=== PATIENT | female | born 1995 | race Caucasian/White ===

== ENCOUNTER 2019-03-27 21:33 | Emergency (ER) | payer MEDICAID, OTHER ==
[~2019-03-27] VITALS: Ht 170.2 cm; Wt 66.7 kg
--- NOTE | 2019-03-27 22:05 | ED Lower Extremity ---
General Stated Complaint: LT KNEE LOCKING AND POPPING Source: patient Exam Limitations: no limitations History of Present Illness Date Seen by Provider: Mar 27, 2019 Time Seen by Provider: 21:50 Initial Comments The patient is a pleasant 23-year-old female who presents for evaluation of left knee pain. She states that her knee has been popping and locking. She denies any known injury. She does mention that she is currently . She has no other complaints at this time. She states this is been going on for weeks. She has been taking Tylenol home with little relief. She denies fevers or chills, recent trauma, previous surgeries or injections. Onset: other (for weeks) Severity: mild Pain/Injury Location: left knee Method of Injury: unknown Modifying Factors: Improves With Movement (makes it worse), Improves With Rest (helps) Allergies and Home Medications Patient Home Medication List Home Medication List Reviewed: Yes Review of Systems Constitutional: no symptoms reported EENTM: no symptoms reported Respiratory: no symptoms reported Cardiovascular: no symptoms reported Gastrointestinal: no symptoms reported Genitourinary: no symptoms reported Musculoskeletal: joint pain (left knee, pops and locks) Skin: no symptoms reported Psychiatric/Neurological: No Symptoms Reported All Other Systems Reviewed Negative Unless Noted: Yes Past Mdcftsm-Ssgxax-Uwomfh Hx Past Med/Social Hx: Reviewed Nursing Past Med/Soc Hx Patient Social History Recent Foreign Travel: No Contact w/Someone Who Travel: No Physical Exam Vital Signs Vital Signs - First Documented 03/27/19 21:39 Temp 98.2 Pulse 82 Resp 18 B/P (MAP) 124/65 (84) Pulse Ox 98 O2 Delivery Room Air Capillary Refill : Height, Weight, BMI Height: '" Weight: lbs. oz. kg; BMI Method: General Appearance: WD/WN, no apparent distress HEENT: PERRL/EOMI, normal ENT inspection, TMs normal, pharynx normal Cardiovascular: regular rate, rhythm, no edema Respiratory: lungs clear, normal breath sounds, no respiratory distress Knees: left knee soft tissue tenderness (mild anterior left knee tenderness over the patella, full extension elicits no pain however even mild flexion worsens the patient's discomfort, no sign of dislocation or deformity, no skin redness or wound, CMS intact distal to the injury) Neurologic/Psychiatric: no motor/sensory deficits, alert, normal mood/affect, oriented x 3 Skin: normal color, warm/dry Lymphatic: no adenopathy Progress/Results/Core Measures Results/Orders My Orders Orders - HERMELINDO IVERSON DO Knee 3 View Left (03/27/19 21:35) Perry Bandage (03/27/19 22:10) Crutches (03/27/19 22:10) Vital Signs/I&O 03/27/19 21:39 Temp 98.2 Pulse 82 Resp 18 B/P (MAP) 124/65 (84) Pulse Ox 98 O2 Delivery Room Air Progress Progress Note : Progress Note @2220 - Pt was shielded as she is . Pt informed of imaging results which are unremarkable. Advised the patient to follow-up with her PCP in the next 2-3 days and return to the emergency department for new or worsening symptoms. Patient given crutches and Perry wrap for pain relief. Departure Impression Primary Impression: Left knee pain Additional Impression: Disposition: HOME, SELF-CARE Condition: Stable Departure-Patient Inst. Decision time for Depature: 22:15 Referrals: ANTONIO VILLAGOMEZ MD, ([facility]) (PCP) Primary Care Physician Patient Instructions: Internal Derangement of the Knee, Knee Pain (DC) Add. Discharge Instructions: Continue to take Tylenol for pain relief. Use the crutches provided to help with the pain relief as well. Follow up with her doctor in the next 2-3 days. Return to the ER for new or worsening symptoms. HERMELINDO IVERSON DO Mar 27, 2019 22:05
--- NOTE | 2019-03-27 22:08 | Diagnostic Imaging Report ---
INDICATION: Left knee is locking up EXAMINATION: Left knee dated 03/27/2019 FINDINGS: 3 views of the knee The joint spaces demonstrate no evidence for acute abnormality. No significant joint effusion is seen. IMPRESSION: No acute process. Dictated by: Dictated on workstation # [id number]
[2019-03-27 22:23] VITALS: BP 124/65
== END 2019-03-27 22:23 | disposition home or self-care (01) ==
LOC: EDUNIT# 21:33 → ER FS 21:34
DX: O99.89 Other specified diseases and conditions complicating pregnancy, childbirth and the puerperium (principal); M25.562 Pain in left knee; Z3A.00 Weeks of gestation of pregnancy not specified
CPT/HCPCS: 73562

== ENCOUNTER 2021-10-09 18:21 | Emergency (ER) | payer MEDICAID ==
[~2021-10-09] VITALS: Ht 175.2 cm; Wt 82.3 kg
--- NOTE | 2021-10-09 18:24 | ED GU-Female ---
General Stated Complaint: VAGINAL BLEEDING DURING PREG History of Present Illness Date Seen by Provider: Oct 09, 2021 Time Seen by Provider: 18:30 Initial Comments 25-year-old female presents with symptoms light vaginal spotting. Patient was told she was seen in [facility] and might be 4 weeks . Patient had her menstrual cycle 2 weeks ago. Patient not having abdominal pain or cramping. Allergies and Home Medications Patient Home Medication List Home Medication List Reviewed: Yes Review of Systems Review of Systems Constitutional: No chills, No fever Respiratory: No cough, No short of breath Cardiovascular: no symptoms reported Gastrointestinal: no symptoms reported Genitourinary: see HPI Skin: no symptoms reported Past Hgordnr-Tbdkno-Psmctl Hx Seasonal Allergies Seasonal Allergies: No Past Medical History Surgeries: No Respiratory: No Cardiac: No Neurological: No Genitourinary: No Gastrointestinal: No Musculoskeletal: No Endocrine: No HEENT: No Cancer: No Psychosocial: No Integumentary: No Physical Exam Vital Signs Capillary Refill : Height, Weight, BMI Height: 5'7.00" Weight: 147lbs. 0oz. 66.431433jh; BMI Method:Stated General Appearance: WD/WN, no apparent distress HEENT: PERRL/EOMI Neck: full range of motion Cardiovascular: normal peripheral pulses, regular rate, rhythm Respiratory: lungs clear, normal breath sounds Gastrointestinal: non tender, soft Extremities: normal range of motion Neurologic/Psychiatric: alert, normal mood/affect, oriented x 3 Skin: normal color, warm/dry Progress/Results/Core Measures Suspected Sepsis SIRS Temperature: Pulse: Respiratory Rate: Blood Pressure / Mean: Results/Orders My Orders Orders - LISA DO DO Urine Bedside (10/09/21 18:30) Vital Signs/I&O Capillary Refill : Progress Note : Progress Note Patient with a negative bedside urine. Patient also with a menstrual cycle 2 weeks ago. Patient is may be having some ovulation spotting or other cause. At this time no further work-up is warranted and she will be discharged home Departure Impression Primary Impression: Vaginal spotting Disposition: 01 HOME, SELF-CARE Condition: Stable Departure-Patient Inst. Referrals: NO,LOCAL PHYSICIAN (PCP/Family) Primary Care Physician Patient Instructions: Absent or Irregular Periods Add. Discharge Instructions: Follow-up with your primary care provider as needed LISA DO DO Oct 09, 2021 18:24
[2021-10-09 18:52] VITALS: BP 137/73
[2021-10-10] MEDS ORDERED: IBUP-1780 PO (21:03)
== END 2021-10-09 18:52 | disposition home or self-care (01) ==
LOC: EDUNIT# 18:21 → ER FS 18:23
DX: N93.9 Abnormal uterine and vaginal bleeding, unspecified (principal)
CPT/HCPCS: 84703; 99282

== ENCOUNTER 2021-10-10 20:25 | Emergency (ER) | payer MEDICAID ==
--- NOTE | 2021-10-10 20:49 | Diagnostic Imaging Report ---
INDICATION: pain in left ring finger TECHNIQUE: 3 views of the left ring finger CORRELATION STUDY: None FINDINGS: There is normal alignment and appearance of the osseous structures of the finger. The joint spaces are maintained. There is no acute fracture. 4th proximal phalanx is however partially obscured by overlying ring. IMPRESSION: 1. Negative for acute bony abnormality of the left ring finger. Dictated by: Dictated on workstation # [id number]
[2021-10-10] MEDS ORDERED: IBUPROFEN 800 MG (MOTRIN) TAB PO STA (20:57)
[2021-10-10] MEDS ORDERED: IBUP-1780 PO (21:03)
--- NOTE | 2021-10-10 21:03 | ED Upper Extremity ---
General Chief Complaint: Upper Extremity Stated Complaint: LT HAND RING FINGER PAIN Nursing Triage Note: Pt states she jammed her left ring finger Source: patient History of Present Illness Date Seen by Provider: Oct 10, 2021 Time Seen by Provider: 20:33 Initial Comments 25-year-old female presenting with complaints of pain in her left ring finger. She states that she was "fooling around" with her fianc. She got her finger caught and felt a pop in it and has had pain with a burning sensation in her fingers ever since. This happened just prior to coming to the emergency department. She reports trying some ice but it did not help. She has not taken any medication for the pain. She states that she cannot move her finger due to pain. She also cannot remove the ring that is on her finger due to pain. She still has sensation but also says that she has burning pain in the finger. Also she states that she cannot move the fingers she is noted to be moving the finger in all directions. Onset: just prior to arrival Severity: severe Pain/Injury Location: left 4th finger Method of Injury: twisted Modifying Factors: Worse With Movement Allergies and Home Medications Allergies Coded Allergies: No Known Drug Allergies (Unverified , 10/10/21) Patient Home Medication List Home Medication List Reviewed: Yes Ibuprofen (Ibuprofen) 800 Mg Tablet, 800 MG PO Q8H PRN for PAIN Prescribed by: ALEKSANDR MCDONALD on 10/10/212102 Review of Systems Constitutional: No chills, No fever EENTM: no symptoms reported Respiratory: no symptoms reported Cardiovascular: no symptoms reported Gastrointestinal: no symptoms reported Genitourinary: no symptoms reported Musculoskeletal: see HPI Skin: No change in color Psychiatric/Neurological: See HPI Past Cskuzbj-Vtgdbc-Xdnolg Hx Patient Social History Tobacco Use?: No Use of E-Cig and/or Vaping dev: No Substance use?: No Alcohol Use?: No Pt feels they are or have been: No Seasonal Allergies Seasonal Allergies: No Past Medical History Surgeries: No Respiratory: No Cardiac: No Neurological: No Genitourinary: No Gastrointestinal: No Musculoskeletal: No Endocrine: No HEENT: No Cancer: No Psychosocial: No Integumentary: No Physical Exam Vital Signs Vital Signs - First Documented 10/10/21 20:30 Temp 36.5 Pulse 88 Resp 18 B/P (MAP) 134/63 (86) Pulse Ox 98 O2 Delivery Room Air Capillary Refill : Less Than 3 Seconds Height, Weight, BMI Height: 5'7.00" Weight: 147lbs. 0oz. 66.821072ci; 26.00 BMI Method:Stated General Appearance: no apparent distress Cardiovascular: normal peripheral pulses Hand: no evidence of injury, soft tissue tenderness (Patient complains of pain with palpation and light touch to the left ring finger. There is no obvious deformity, bruising, abrasion, swelling, nail injury. Ring was easily slid off finger without difficulty. Pt states she can not move the finger but is hyperextending it and when distracted she flexed the finger normally) Neurologic/Tendon: normal sensation, normal motor functions, normal tendon functions Neurologic/Psychiatric: alert, oriented x 3 Skin: normal color, warm/dry; No ecchymosis Progress/Results/Core Measures Results/Orders My Orders Orders - ALEKSANDR MCDONALD MD Finger(S) (10/10/21 20:34) Ibuprofen Tablet (Motrin Tablet) (10/10/21 20:57) Orthopedic Equiment (10/10/21 20:57) Ed Ortho/Other Supplies Order (10/10/21 20:57) Vital Signs/I&O 10/10/21 10/10/21 20:30 21:06 Temp 36.5 36.5 Pulse 88 88 Resp 18 18 B/P (MAP) 134/63 (86) 134/63 Pulse Ox 98 98 O2 Delivery Room Air Room Air Blood Pressure Mean: 86 Progress Progress Note : Progress Note X-ray obtained of the left ring finger and no obvious fracture or dislocation noted. Patient refused removal of the ring on that finger initially cervical x- rays were done with the ring in place. Counseled patient on use of a finger splint to help look at the finger rest and heal from injury tonight and using ibuprofen and ice to help with inflammation and pain. Counseled on follow-up and return precautions. Diagnostic Imaging Diagonstic Imaging: Xray Plain Films/CT/US/NM/MRI: hand Comments [facility]easy[facility] [place], [place] NAME: WARNER HALE Salome [facility] REC#: [id number] PT STATUS: DEP ER : 1995 PHYSICIAN: ALEKSANDR MCDONALD MD ADMIT DATE: 10/10/21/ER FS Signed Date of Exam:10/10/21 FINGER(S) INDICATION: pain in left ring finger TECHNIQUE: 3 views of the left ring finger CORRELATION STUDY: None FINDINGS: There is normal alignment and appearance of the osseous structures of the finger. The joint spaces are maintained. There is no acute fracture. 4th proximal phalanx is however partially obscured by overlying ring. IMPRESSION: 1. Negative for acute bony abnormality of the left ring finger. Dictated by: Dictated on workstation # [id number] Dict: 10/10/212047 Trans: 10/10/212219 DO [id number] Interpreted by: JOSE HERNANDEZ DO Electronically signed by: JOSE HERNANDEZ DO 10/10/212219 Reviewed: Reviewed by Me Departure Impression Primary Impression: Unspecified sprain of left ring finger, initial encounter Additional Impressions: Finger pain, left Contusion of left ring finger without damage to nail, initial encounter Disposition: HOME, SELF-CARE Condition: Stable Departure-Patient Inst. Decision time for Depature: 21:01 Referrals: NO,LOCAL PHYSICIAN (PCP/Family) Primary Care Physician Patient Instructions: Finger Sprain ED, Minor Contusion ED, Common Finger Injuries ED, Using Cold for Pain Add. Discharge Instructions: Use finger splint to help stabilize your finger and let it rest over the next 5- 7 days. If not improved after 5 to 7 days then recheck with your regular doctor in [place], [place]. You may use ice 15-20 minutes every few hours to help with pain and swelling. Ibuprofen 800 mg every 8 hours as needed for pain and inflammation All discharge instructions reviewed with patient and/or family. Voiced understanding. Scripts Ibuprofen (Ibuprofen) 800 Mg Tablet 800 MG PO Q8H PRN for PAIN for 10 Days, #30 TAB 0 Refills Prov: ALEKSANDR MCDONALD MD 10/10/21 ALEKSANDR MCDONALD MD Oct 10, 2021 21:03
[2021-10-10 21:06] VITALS: BP 134/63
== END 2021-10-10 21:09 | disposition home or self-care (01) ==
LOC: EDUNIT# 20:25 → ER FS 20:26
DX: S63.615A Unspecified sprain of left ring finger, initial encounter (principal); W23.1XXA Caught, crushed, jammed, or pinched between stationary objects, initial encounter
CPT/HCPCS: 73140

== ENCOUNTER 2021-10-31 15:21 | Emergency (ER) | payer MEDICAID ==
[~2021-10-31] VITALS: Ht 175.2 cm; Wt 82.0 kg
[~2021-10-31 15:21] MED LIST: IBUP-1780 PO
--- NOTE | 2021-10-31 15:30 | ED EENT ---
History of Present Illness General Chief Complaint: Ear Problems Stated Complaint: LT EAR PROBLEMS History of Present Illness Date Seen by Provider: Oct 31, 2021 Time Seen by Provider: 15:30 Initial Comments 26-year-old female presents with pain in her left earlobe. Patient reports her earlobe is been hurting for about 2 weeks over the last day she has noticed some drainage out of her pierced ear. Is quite a bit of tenderness on the inside of her earlobe where her earring goes in. Patient denies any fever, chills or other systemic complaints. Allergies and Home Medications Allergies Coded Allergies: No Known Drug Allergies (Unverified , 10/10/21) Patient Home Medication List Home Medication List Reviewed: Yes Ibuprofen (Ibuprofen) 800 Mg Tablet, 800 MG PO Q8H PRN for PAIN Prescribed by: ALEKSANDR MCDONALD on 10/10/212102 Review of Systems Review of Systems Constitutional: no symptoms reported Ears: See HPI Nose: no symptoms reported Mouth: no symptoms reported Respiratory: no symptoms reported Cardiovascular: no symptoms reported : No Past Gwbwtff-Lrokyk-Woxlfk Hx Seasonal Allergies Seasonal Allergies: No Past Medical History Surgeries: No Respiratory: No Cardiac: No Neurological: No Genitourinary: No Gastrointestinal: No Musculoskeletal: No Endocrine: No HEENT: No Cancer: No Psychosocial: No Integumentary: No Physical Exam Height, Weight, BMI Height: 5'7.00" Weight: 147lbs. 0oz. 66.064808vu; 26.00 BMI Method:Stated General Appearance: WD/WN Ears: left ear other (Mild swelling and drainage out of her left earlobe piercing consistent with mild infection) Cardiovascular: normal peripheral pulses, regular rate, rhythm Respiratory: lungs clear, normal breath sounds, no respiratory distress Gastrointestinal: non tender, soft Neurologic/Psychiatric: alert, normal mood/affect, oriented x 3 Departure Impression Primary Impression: Infection of left earlobe Disposition: HOME, SELF-CARE Condition: Stable Departure-Patient Inst. Referrals: NO,LOCAL PHYSICIAN (PCP/Family) Primary Care Physician Patient Instructions: Skin Abscess, Tattoos and Body Piercings Add. Discharge Instructions: Please do not utilize your left ear piercing for the next 14 days Keep clean with warm soapy water If symptoms continue to worsen follow-up with your primary care provider for a recheck of your symptoms All discharge instructions reviewed with patient and/or family. Voiced understanding. Scripts Sulfamethoxazole/Trimethoprim (Bactrim Ds Tablet) 1 Each Tablet 1 EACH PO BID for 7 Days, #14 TAB Prov: LISA DO DO 10/31/21 LISA DO DO Oct 31, 2021 15:30
[2021-10-31] MEDS ORDERED: SULF1TAB38 PO (15:42)
[2021-10-31 15:54] VITALS: BP 126/60
== END 2021-10-31 15:54 | disposition home or self-care (01) ==
LOC: EDUNIT# 15:21 → ER FS 15:23
DX: H60.392 Other infective otitis externa, left ear (principal)
CPT/HCPCS: 99281

== ENCOUNTER 2021-11-07 18:47 | Emergency (ER) | payer MEDICAID ==
[~2021-11-07 18:47] MED LIST changes: +SULF1TAB38 PO
[2021-11-07 19:05] LABS: BILIRUBIN,URINE NEGATIVE (NEGATIVE); CLARITY,URINE CLOUDY; COLOR,URINE YELLOW; GLUCOSE, URINE (UA) NEGATIVE (NEGATIVE); KETONES,URINE NEGATIVE (NEGATIVE); LEUKOCYTE ESTERASE ,URINE 3+ (NEGATIVE); NITRITE,URINE NEGATIVE (NEGATIVE); PROTEIN,URINE NEGATIVE (NEGATIVE)
[2021-11-07 19:14] LABS: BACTERIA,URINE FEW /HPF; RBC,URINE 0-2 /HPF
[2021-11-07 19:15] LABS: URINE OTHER CLUE CELLS NOTED /HPF
[2021-11-07 19:18] LABS: AMPHETAMINE SCREEN, URINE NEGATIVE (NEGATIVE); BARBITURATE SCREEN URINE NEGATIVE (NEGATIVE); BENZODIAZEPINES SCREEN URINE NEGATIVE (NEGATIVE); CANNABINOID SCREEN, URINE NEGATIVE (NEGATIVE); COCAINE SCREEN URINE NEGATIVE (NEGATIVE); METHADONE STAT NEGATIVE (NEGATIVE); METHAMPHETAMINE SCREEN URINE S NEGATIVE (NEGATIVE); OPIATE SCREEN URINE NEGATIVE (NEGATIVE); OXYCODONE STAT NEGATIVE (NEGATIVE); PROPOXYPHENE STAT NEGATIVE (NEGATIVE); TRICYCLIC ANTIDEPRESSANTS SCRE NEGATIVE (NEGATIVE)
[2021-11-07] MEDS ORDERED: NS IV 1000 ML 1,000 ML IV STA (19:40)
[2021-11-07] MEDS ORDERED: KETOROLAC 30 MG/ML VIAL IVP STA (19:40)
[2021-11-07] MEDS ORDERED: ONDANSETRON 4 MG/2 ML (SDV) Z0FRAN IVP STA (19:40)
--- NOTE | 2021-11-07 19:47 | ED General ---
General Chief Complaint: Abdominal/GI Problems Stated Complaint: R SIDE RIB PAIN Nursing Triage Note: Pt complaining of right upper quad abd pain that started a couple of days ago Source of Information: Patient, Old Records History of Present Illness Date Seen by Provider: Nov 07, 2021 Time Seen by Provider: 19:23 Initial Comments 26-year-old female presenting with complaints of right upper quadrant abdominal pain for the last few days. She feels like she has pain around her kidneys. She has discomfort with urination. She states that when she eats or drinks anything it makes the pain worse. When she is not eating or drinking then the pain seems to be a little better. She has had nausea, vomiting, diarrhea. On her way here to the emergency department tonight she developed some dizziness and pain to the right side of her head. She denies having any blood in her stools or blood in her urine. She has had no blood in her vomit. She denies any trauma to her belly. She denies any vaginal discharge. She states that she has not had surgery on her belly before and has not had pain like this previously. Timing/Duration: 2-3 Days Severity: Moderate Modifying Factors: worse with Eating Associated Systoms: No Chest Pain, No Cough, No Diaphoresis, No Fever/Chills; Headaches; No Loss of Appetite, No Malaise; Nausea/Vomiting; No Rash, No Seizure, No Shortness of Air, No Syncope, No Weakness Allergies and Home Medications Allergies Coded Allergies: No Known Drug Allergies (Unverified , 10/10/21) Patient Home Medication List Home Medication List Reviewed: Yes Ibuprofen (Ibuprofen) 800 Mg Tablet, 800 MG PO Q8H PRN for PAIN Prescribed by: ALEKSANDR MCDONALD on 10/10/212102 Metronidazole (Metronidazole) 500 Mg Tablet, 500 MG PO BID Prescribed by: ALEKSANDR MCDONALD on 11/07/212056 Ondansetron (Ondansetron Odt) 4 Mg Tab.rapdis, 4 MG PO Q6H PRN for NAUSE A/VOMITING Prescribed by: ALEKSANDR MCDONALD on 11/07/212056 Pantoprazole Sodium (Pantoprazole Sodium) 40 Mg Tablet.dr, 40 MG PO DAILY Prescribed by: ALEKSANDR MCDONALD on 11/07/212056 Sulfamethoxazole/Trimethoprim (Bactrim Ds Tablet) 1 Each Tablet, 1 EACH PO BID Prescribed by: LISA DO on 10/31/21 1542 Review of Systems Review of Systems Constitutional: No chills; dizziness (Tonight); No fever EENTM: no symptoms reported Respiratory: no symptoms reported Cardiovascular: no symptoms reported Gastrointestinal: see HPI Genitourinary: see HPI Musculoskeletal: no symptoms reported Skin: No rash Psychiatric/Neurological: Headache (Tonight having right-sided headache); Denies Numbness, Denies Paresthesia Past Vlnpckt-Hcnlib-Dosttb Hx Patient Social History Tobacco Use?: No Substance use?: No Alcohol Use?: No Pt feels they are or have been: No Seasonal Allergies Seasonal Allergies: No Past Medical History Surgeries: No Respiratory: No Cardiac: No Neurological: No Genitourinary: No Gastrointestinal: No Musculoskeletal: No Endocrine: No HEENT: No Cancer: No Psychosocial: No Integumentary: No Physical Exam Vital Signs Vital Signs - First Documented 11/07/21 18:51 Pulse 99 Resp 18 B/P (MAP) 144/73 (96) Pulse Ox 98 O2 Delivery Room Air Capillary Refill : Less Than 3 Seconds Height, Weight, BMI Height: 5'7.00" Weight: 147lbs. 0oz. 66.517872wl; 26.00 BMI Method:Stated General Appearance: No Apparent Distress HEENT: Pharynx Normal, Moist Mucous Membranes Neck: Full Range of Motion, Normal Inspection, Non Tender, Supple Respiratory: Chest Non Tender, Lungs Clear, Normal Breath Sounds, No Accessory Muscle Use, No Respiratory Distress Cardiovascular: Regular Rate, Rhythm, Normal Peripheral Pulses Gastrointestinal: Normal Bowel Sounds, No Pulsatile Mass, Soft; No Distended, No Guarding, No Rebound; Tenderness (ruq) Rectal: Deferred Back: No CVA Tenderness Extremity: Normal Capillary Refill, Normal Inspection, No Pedal Edema Neurologic/Psychiatric: Alert, Oriented x3, transportation aide II-XII Norm as Tested Skin: Normal Color, Warm/Dry Progress/Results/Core Measures Suspected Sepsis SIRS Temperature: Pulse: 99 Respiratory Rate: 18 Laboratory Tests 11/07/21 19:45: White Blood Count 8.3 Blood Pressure 144 /73 Mean: 96 Laboratory Tests 11/07/21 19:45: Creatinine 0.97, Platelet Count 185, Total Bilirubin 0.2 Results/Orders Lab Results Laboratory Tests Test 11/07/21 18:57 11/07/21 19:45 Range/Units Urine Color YELLOW Urine Clarity CLOUDY Urine pH 6.0 5-9 Urine Specific [place] 1.020 1.016-1.022 Urine Protein NEGATIVE NEGATIVE Urine Glucose (UA) NEGATIVE NEGATIVE Urine Ketones NEGATIVE NEGATIVE Urine Nitrite NEGATIVE NEGATIVE Urine Bilirubin NEGATIVE NEGATIVE Urine Urobilinogen 0.2 < = 1.0 MG/DL Urine Leukocyte Esterase 3+ H NEGATIVE Urine RBC (Auto) 2+ H NEGATIVE Urine RBC 0-2 /HPF Urine WBC 2-5 /HPF Urine Squamous Epithelial Cells 5-10 /HPF Urine Crystals NONE /LPF Urine Bacteria FEW H /HPF Urine Casts NONE /LPF Urine Mucus SMALL H /LPF Urine Other CLUE CELLS NOTED /HPF Urine Culture Indicated NO Urine Opiates Screen NEGATIVE NEGATIVE Urine Oxycodone Screen NEGATIVE NEGATIVE Urine Methadone Screen NEGATIVE NEGATIVE Urine Propoxyphene Screen NEGATIVE NEGATIVE Urine Barbiturates Screen NEGATIVE NEGATIVE Ur Tricyclic Antidepressants Screen NEGATIVE NEGATIVE Urine Phencyclidine Screen NEGATIVE NEGATIVE Urine Amphetamines Screen NEGATIVE NEGATIVE Urine Methamphetamines Screen NEGATIVE NEGATIVE Urine Benzodiazepines Screen NEGATIVE NEGATIVE Urine Cocaine Screen NEGATIVE NEGATIVE Urine Cannabinoids Screen NEGATIVE NEGATIVE White Blood Count 8.3 4.3-11.0 10^3/uL Red Blood Count 4.55 3.80-5.11 10^6/uL Hemoglobin 13.2 11.5-16.0 g/dL Hematocrit 39 35-52 % Mean Corpuscular Volume 86 80-99 fL Mean Corpuscular Hemoglobin 29 25-34 pg Mean Corpuscular Hemoglobin Concent 34 32-36 g/dL Red Cell Distribution Width 11.9 10.0-14.5 % Platelet Count 185 130-400 10^3/uL Mean Platelet Volume 10.9 9.0-12.2 fL Immature Granulocyte % (Auto) 0 % Neutrophils (%) (Auto) 57 42-75 % Lymphocytes (%) (Auto) 31 12-44 % Monocytes (%) (Auto) 8 0-12 % Eosinophils (%) (Auto) 3 0-10 % Basophils (%) (Auto) 1 0-10 % Neutrophils # (Auto) 4.7 1.8-7.8 10^3/uL Lymphocytes # (Auto) 2.6 1.0-4.0 10^3/uL Monocytes # (Auto) 0.7 0.0-1.0 10^3/uL Eosinophils # (Auto) 0.2 0.0-0.3 10^3/uL Basophils # (Auto) 0.1 0.0-0.1 10^3/uL Immature Granulocyte # (Auto) 0.0 0.0-0.1 10^3/uL Sodium Level 137 135-145 MMOL/L Potassium Level 4.3 3.6-5.0 MMOL/L Chloride Level 105 98-107 MMOL/L Carbon Dioxide Level 25 21-32 MMOL/L Anion Gap 7 5-14 MMOL/L Blood Urea Nitrogen 15 7-18 MG/DL Creatinine 0.97 0.60-1.30 MG/DL Estimat Glomerular Filtration Rate 82 BUN/Creatinine Ratio 15 Glucose Level 107 H 70-105 MG/DL Calcium Level 9.3 8.5-10.1 MG/DL Corrected Calcium 9.1 8.5-10.1 MG/DL Total Bilirubin 0.2 0.1-1.0 MG/DL Aspartate Amino Transf (AST/SGOT) 16 5-34 U/L Alanine Aminotransferase (ALT/SGPT) 13 0-55 U/L Alkaline Phosphatase 55 40-136 U/L Total Protein 6.9 6.4-8.2 GM/DL Albumin 4.2 3.2-4.5 GM/DL Lipase 70 8-78 U/L My Orders Orders - ALEKSANDR MCDONALD MD Ua Culture If Indicated (11/07/21 18:57) Drug Screen Stat (Urine) (11/07/21 18:57) Urine Bedside (11/07/21 18:57) Comprehensive Metabolic Panel (11/07/21 19:40) Lipase (11/07/21 19:40) Ed Iv/Invasive Line Start (11/07/21 19:40) Cbc With Automated Diff (11/07/21 19:40) Ct Abdomen/Pelvis W (11/07/21 19:40) Ns Iv 1000 Ml (Sodium Chloride 0.9%) (11/07/21 19:40) Ondansetron Injection (Zofran Injectio (11/07/21 19:40) Ketorolac Injection (Toradol Injection) (11/07/21 19:40) Iohexol Injection (Omnipaque 350 Mg/Ml 1 (11/07/21 20:00) Received Contrast (Hold Metformin- Contr (11/07/21 20:00) Ns (Ivpb) (Sodium Chloride 0.9% Ivpb Bag (11/07/21 20:00) Medications Given in ED Current Medications Medications Dose Ordered Sig/Thalia Route Start Time Stop Time Status Last Admin Dose Admin Iohexol 100 ml ONCE ONCE IV 11/07/21 20:00 11/07/21 20:01 DC 11/07/21 19:55 100 ML Sodium Chloride 100 ml ONCE ONCE IV 11/07/21 20:00 11/07/21 20:01 DC 11/07/21 19:55 100 ML Vital Signs/I&O 11/07/21 11/07/21 18:51 20:59 Pulse 99 88 Resp 18 18 B/P (MAP) 144/73 (96) 129/69 Pulse Ox 98 98 O2 Delivery Room Air Room Air Capillary Refill : Less Than 3 Seconds Blood Pressure Mean: 96 Progress Note #1: Progress Note UA with UDS and bedside test on arrival. The BST was negative. Her UDS was negative for illicit drugs. her UA shows 3 + LE with some bacteria and WBC as well as clue cells. With her having tenderness to RUQ and made worse with eating will add labs and CT scan to further evaluate for gallbladder disease, cholecystitis, gastritis, colitis, diverticulitis, pyelonephritis. Give 1 L of normal saline IV for hydration, Toradol 30 mg IV for pain, Zofran 4 mg IV for nausea and vomiting. Progress Note #2: Progress Note labs are stable without acute significant abnormality other than UTI findings. CT scan shows increased stool and gas, food and fluid in stomach and contracted gallbladder consistent with non-fasting state. Appendix visualized and normal. Will treat with antibiotic for UTI and have her take medicine for constipation. Follow up with clinic for continued concerns. Follow a low fat bland diet and if she continues to have issues she may need to get an ultrasound of gallbladder or endoscopy of stomach to look for ulcers. Diagnostic Imaging Diagonstic Imaging: CT Plain Films/CT/US/NM/MRI: abdomen, pelvis Comments NAME: WARNER HALE [facility] REC#: [id number] PT STATUS: REG ER : 1995 PHYSICIAN: ALEKSANDR MCDONALD MD ADMIT DATE: 11/07/21/ER FS Signed Date of Exam:11/07/21 CT ABDOMEN/PELVIS W CT ABDOMEN/PELVIS W TECHNIQUE: Multiple contiguous axial images were obtained through the abdomen and pelvis after administration of intravenous contrast. All CT scans use one or more of the following dose optimizing techniques: automated exposure control, MA and/or KvP adjustment based on patient size and exam type or iterative reconstruction. INDICATION: Right upper quadrant pain with nausea and vomiting. COMPARISON: None available. FINDINGS: Lower chest: The lung bases are clear. No pericardial or pleural effusion. Peritoneum: No free intraperitoneal air or fluid. Liver and biliary system: The liver is normal. Gallbladder is contracted without radiopaque gallstones. No biliary duct dilatation. Spleen and Pancreas: Spleen is normal. The pancreas enhances normally without mass lesion or peripancreatic inflammatory changes. Adrenals: Normal. tract: The kidneys enhance normally without suspicious mass or obstruction. No renal or ureteral stones. Urinary bladder is distended without wall thickening. Multiple cysts are present in the right ovary with a dominant corpus luteum measuring 2.5 cm. GI tract: Stomach is filled with fluid and food debris and there is no wall thickening. No bowel obstruction. No pericolonic inflammatory changes. Normal appendix. Vasculature and Lymph nodes: Normal caliber aorta. No abdominal or pelvic lymphadenopathy. Musculoskeletal: No concerning osseous lesion. IMPRESSION: 1. No acute obstructive or inflammatory process. 2. Contracted gallbladder is compatible with nonfasting state. No radiopaque gallstones. 3. No renal or ureteral stones. Dictated by: Dictated on workstation # [id number] Dict: 11/07/212011 Trans: 11/07/212030 [facility] [id number] Interpreted by: SONIA VARGAS MD Electronically signed by: SONIA VARGAS MD 11/07/212030 Reviewed: Reviewed by Ia Departure Impression Primary Impression: Right upper quadrant abdominal pain Additional Impressions: Cystitis without hematuria Constipation Qualified Codes: K59.00 - Constipation, unspecified Disposition: 01 HOME, SELF-CARE Condition: Stable Departure-Patient Inst. Decision time for Depature: 20:51 Referrals: NO,LOCAL PHYSICIAN (PCP) Primary Care Physician [facility] [phone] to call and get established with primary care Patient Instructions: Abdominal Pain, Adult ED, [place] Diet, Constipation, Adult ED, Urinary Tract Infection, Adult ED Add. Discharge Instructions: Stay well hydrated and drink plenty of water. Take the full course of antibiotics for UTI Follow a low fat bland diet Take Miralax or laxative to help with constipation and keep stools soft and regular. If you continue to have problems you need to see the clinic as they may need to order a scope of your stomach and colon to look for abnormalities or get testing to look at your gallbladder function. These are tests the clinic has to set up as they are not available in the Emergency Department. All discharge instructions reviewed with patient and/or family. Voiced understanding. Scripts Pantoprazole Sodium (Pantoprazole Sodium) 40 Mg Tablet.dr 40 MG PO DAILY for gastritis for 30 Days, #30 TAB 0 Refills Prov: ALEKSANDR MCDONALD MD 11/07/21 Ondansetron (Ondansetron Odt) 4 Mg Tab.rapdis 4 MG PO Q6H PRN for NAUSEA/VOMITING for 3 Days, #12 TAB 0 Refills Prov: ALEKSANDR MCDONALD MD 11/07/21 Metronidazole (Metronidazole) 500 Mg Tablet 500 MG PO BID for 7 Days, #14 TAB 0 Refills Prov: ALEKSANDR MCDONALD MD 11/07/21 ALEKSANDR MCDONALD MD Nov 07, 2021 19:47
[2021-11-07] MEDS ORDERED: NS 100 ML (IVPB) BAG IV ONE (20:00)
[2021-11-07] MEDS ORDERED: HOLD METFORMIN - RECEIVED CONTRAST 20 ML VIAL IV SCH (20:00)
[2021-11-07] MEDS ORDERED: IOHEXOL 350 MG/ML 100 ML (OMNIPAQUE 350) VIAL IV ONE (20:00)
[2021-11-07 20:02] LABS: BASOPHILS # (AUTO) 0.1 10^3/uL (0.0-0.1); BASOPHILS % (AUTO) 1 % (0-10); EOSINOPHILS # (AUTO) 0.2 10^3/uL (0.0-0.3); EOSINOPHILS % (AUTO) 3 % (0-10); HEMATOCRIT 39 % (35-52); HEMOGLOBIN 13.2 g/dL (11.5-16.0); LYMPHOCYTES # (AUTO) 2.6 10^3/uL (1.0-4.0); LYMPHOCYTES % (AUTO) 31 % (12-44); MEAN CORPUSCULAR HEMOGLOBIN 29 pg (25-34); MEAN CORPUSCULAR HGB CONC 34 g/dL (32-36); MEAN CORPUSCULAR VOLUME 86 fL (80-99); MEAN PLATELET VOLUME 10.9 fL (9.0-12.2); MONOCYTES # (AUTO) 0.7 10^3/uL (0.0-1.0); MONOCYTES % (AUTO) 8 % (0-12); NEUTROPHILS # (AUTO) 4.7 10^3/uL (1.8-7.8); NEUTROPHILS % (AUTO) 57 % (42-75); PLATELET COUNT 185 10^3/uL (130-400); WHITE BLOOD COUNT 8.3 10^3/uL (4.3-11.0)
[2021-11-07 20:16] LABS: BILIRUBIN,TOTAL 0.2 MG/DL (0.1-1.0); CALCIUM 9.3 MG/DL (8.5-10.1); CREATININE SERUM 0.97 MG/DL (0.60-1.30); POTASSIUM 4.3 MMOL/L (3.6-5.0)
[2021-11-07 20:17] LABS: ALBUMIN 4.2 GM/DL (3.2-4.5); TOTAL PROTEIN 6.9 GM/DL (6.4-8.2)
--- NOTE | 2021-11-07 20:28 | Diagnostic Imaging Report ---
CT ABDOMEN/PELVIS W TECHNIQUE: Multiple contiguous axial images were obtained through the abdomen and pelvis after administration of intravenous contrast. All CT scans use one or more of the following dose optimizing techniques: automated exposure control, MA and/or KvP adjustment based on patient size and exam type or iterative reconstruction. INDICATION: Right upper quadrant pain with nausea and vomiting. COMPARISON: None available. FINDINGS: Lower chest: The lung bases are clear. No pericardial or pleural effusion. Peritoneum: No free intraperitoneal air or fluid. Liver and biliary system: The liver is normal. Gallbladder is contracted without radiopaque gallstones. No biliary duct dilatation. Spleen and Pancreas: Spleen is normal. The pancreas enhances normally without mass lesion or peripancreatic inflammatory changes. Adrenals: Normal. tract: The kidneys enhance normally without suspicious mass or obstruction. No renal or ureteral stones. Urinary bladder is distended without wall thickening. Multiple cysts are present in the right ovary with a dominant corpus luteum measuring 2.5 cm. GI tract: Stomach is filled with fluid and food debris and there is no wall thickening. No bowel obstruction. No pericolonic inflammatory changes. Normal appendix. Vasculature and Lymph nodes: Normal caliber aorta. No abdominal or pelvic lymphadenopathy. Musculoskeletal: No concerning osseous lesion. IMPRESSION: 1. No acute obstructive or inflammatory process. 2. Contracted gallbladder is compatible with nonfasting state. No radiopaque gallstones. 3. No renal or ureteral stones. Dictated by: Dictated on workstation # [id number]
[2021-11-07] MEDS ORDERED: METR-145 PO (20:57)
[2021-11-07] MEDS ORDERED: PANT40TA52 PO (20:57)
[2021-11-07] MEDS ORDERED: ONDA4TAB11 PO (20:57)
[2021-11-07 20:59] VITALS: BP 129/69
== END 2021-11-07 21:02 | disposition home or self-care (01) ==
LOC: EDUNIT# 18:47 → ER FS 18:48
DX: N30.90 Cystitis, unspecified without hematuria (principal); K59.00 Constipation, unspecified
CPT/HCPCS: 36415; 74177; 80053; 80306; 81000; 83690; 84703; 85025; 96361; 96374; 96375; Q9967

== ENCOUNTER 2022-01-05 21:05 | Emergency (ER) | payer MEDICAID ==
[~2022-01-05] VITALS: Ht 170.1 cm; Wt 79.3 kg
[~2022-01-05 21:05] MED LIST changes: +METR-145 PO; +ONDA4TAB11 PO; +PANT40TA52 PO
[2022-01-05] MEDS: LORazepam 0.5 MG (ATIVAN) TABLET PO STA (21:24)
[2022-01-05] MEDS ORDERED: MECLIZINE 25 MG (ANTIVERT) TAB PO ONE (21:30)
[2022-01-05] MEDS ORDERED: MECL-149 PO (21:31)
--- NOTE | 2022-01-05 21:32 | ED Fall/Injury ---
General Chief Complaint: Dizziness/Syncope Stated Complaint: DIZZY Source: patient Exam Limitations: no limitations History of Present Illness Date Seen by Provider: Jan 05, 2022 Time Seen by Provider: 21:08 Initial Comments 26-year-old female with no pertinent past medical history coming in due to 2 days of intermittent dizziness where the room is spinning. She has a roaring ringing sound in her left ear which is intermittent. She does feel like she has some hearing loss in that left ear for the past couple days as well. Does not take any aspirin. This is never happened prior. It is worse when she moves around, but sometimes it persists when she sitting down. Episodes can last for couple hours at a time before they get better. She is eating and drinking normally. No vomiting, diarrhea, chest pain, shortness of breath, abdominal pain, or any other concerns Allergies and Home Medications Allergies Coded Allergies: diazepam (Unverified Adverse Reaction, Severe, stopped breathing, 01/05/22) Patient Home Medication List Home Medication List Reviewed: Yes Ibuprofen (Ibuprofen) 800 Mg Tablet, 800 MG PO Q8H PRN for PAIN Prescribed by: ALEKSANDR MCDONALD on 10/10/212102 Lamotrigine (Lamotrigine) 25 Mg Tablet, (Reported) Entered as Reported by: STEVE JAMES on 01/05/222139 Last Action: New Order Meclizine HCl (Meclizine HCl) 25 Mg Tablet, 25 MG PO Q12H PRN for VERTIGO Prescribed by: CATHI FELICIANO on 01/05/222130 Metronidazole (Metronidazole) 500 Mg Tablet, 500 MG PO BID Prescribed by: ALEKSANDR MCDONALD on 11/07/212056 Ondansetron (Ondansetron Odt) 4 Mg Tab.rapdis, 4 MG PO Q6H PRN for NAUSEA/VOMITING Prescribed by: ALEKSANDR MCDONALD on 11/07/212056 Pantoprazole Sodium (Pantoprazole Sodium) 40 Mg Tablet.dr, 40 MG PO DAILY Prescribed by: ALEKSANDR MCDONALD on 11/07/212056 Sulfamethoxazole/Trimethoprim (Bactrim Ds Tablet) 1 Each Tablet, 1 EACH PO BID Prescribed by: LISA DO on 10/31/21 1542 Review of Systems Review of Systems Constitutional: No chills, No fever Eyes: Denies Blurred Vision Ears, Nose, Mouth, Throat: no symptoms reported Respiratory: no symptoms reported Cardiovascular: no symptoms reported Gastrointestinal: no symptoms reported Genitourinary: no symptoms reported Musculoskeletal: no symptoms reported Skin: no symptoms reported Psychiatric/Neurological: Other (vertigo) All Other Systems Reviewed Negative Unless Noted: Yes Past Geaffnq-Mlsuuh-Vlafvw Hx Patient Social History Tobacco Use?: No Substance use?: No Alcohol Use?: No Seasonal Allergies Seasonal Allergies: No Past Medical History Surgeries: No Respiratory: No Cardiac: No Neurological: No Genitourinary: No Gastrointestinal: No Musculoskeletal: No Endocrine: No HEENT: No Cancer: No Psychosocial: No Integumentary: No Physical Exam Vital Signs Vital Signs - First Documented 01/05/22 21:08 Temp 36.5 Pulse 85 Resp 20 B/P (MAP) 142/81 (101) Pulse Ox 97 O2 Delivery Room Air Capillary Refill : Height, Weight, BMI Height: 5'7.00" Weight: 147lbs. 0oz. 66.911241dx; 26.00 BMI Method:Stated General Appearance: WD/WN, no apparent distress HEENT: normal ENT inspection, pharynx normal, other (PERRL, lateral gaze nystagmus) Neck: non-tender, full range of motion, supple, normal inspection Cardiovascular: regular rate, rhythm, no edema, no murmur Respiratory: chest non-tender, lungs clear, normal breath sounds, no respiratory distress, no accessory muscle use Gastrointestinal: normal bowel sounds, non tender, soft; No distended, No guarding, No rebound Back: normal inspection, no CVA tenderness Extremities: normal range of motion, non-tender, normal inspection, no pedal edema, no calf tenderness Neurologic/Psychiatric: field organizer II-XII nml as tested, no motor/sensory deficits, alert, normal mood/affect, oriented x 3, other (Normal [id number]-[id number], normal cpcc-[id number]) Skin: normal color, warm/dry Lymphatic: no adenopathy Susan Coma Score Best Eye Response: (4) Open Spontaneously Best Verbal Response: (5) Oriented Best Motor Response: (6) Obeys Commands Progress/Results/Core Measures Results/Orders My Orders Orders - CATHI FELICIANO MD Dexamethasone Oral Soln (Ed) (Decadron I (01/05/22 21:18) Meclizine Tablet (Antivert Tablet) (01/05/22 21:30) Lorazepam Tablet (Ativan Tablet) (01/05/22 21:18) Ct Head Wo (01/05/22 21:18) Medications Given in ED Current Medications Medications Dose Ordered Sig/Thalia Route Start Time Stop Time Status Last Admin Dose Admin Meclizine HCl 25 mg ONCE ONCE PO 01/05/22 21:30 01/05/22 21:31 DC 01/05/22 21:24 25 MG Vital Signs/I&O 01/05/22 01/05/22 21:08 21:15 Temp 36.5 Pulse 85 87 83 92 Resp 20 B/P (MAP) 142/81 (101) 145/71 137/57 132/66 Pulse Ox 97 O2 Delivery Room Air Progress Progress Note : Progress Note 26-year-old female with above history coming in due to vertigo. ABCs were intact and vitals were stable on presentation. Orthostatics were normal. She does have nystagmus on exam, loss of hearing in the left ear, and ringing sound in her left ear. This last for hours at a time. Clinically this is consistent with Mnire's disease. We will try meclizine and steroids. CT head with no acute findings. Patient feeling slightly better, but I counseled her that Mnire's disease can be longstanding and she needs to follow-up with ENT which she is agreeable to. I believe she is stable for discharge with outpatient follow-up. She was sent home with strict return precautions Diagnostic Imaging Diagonstic Imaging: CT Plain Films/CT/US/NM/MRI: head Comments [facility] [place] NAME: WARNER HALE [facility] REC#: [id number] PT STATUS: REG ER : 1995 PHYSICIAN: CATHI FELICIANO MD ADMIT DATE: 01/05/22/ER FS Draft Date of Exam:01/05/22 CT HEAD WO PROCEDURE: CT head without contrast. TECHNIQUE: Multiple contiguous axial images were obtained through the brain without the use of intravenous contrast. Auto Exposure Controls were utilized during the CT exam to meet ALARA standards for radiation dose reduction. DATE: January 05, 2022. COMPARISON: None. INDICATION: 26-year-old female, persistent vertigo. History of cerebral palsy. FINDINGS: There is ex vacuo dilation of the right lateral ventricle likely relating to sequela of prior insult. The additional ventricles are normal in size. There is no mass effect or midline shift. There is no acute intracranial hemorrhage. There is no abnormal extra-axial fluid collection. The visualized portions of the paranasal sinuses, mastoid air cells and middle ears are well aerated. IMPRESSION: 1. Ex vacuo dilation of the right lateral ventricle relating to sequela of remote prior insult. 2. No identified acute intracranial abnormality. Dictated on workstation # [id number] Dict: 01/05/222145 Trans: 01/05/222148 [facility] [id number] Interpreted by: ANMOL PENNY MD Electronically signed by: Departure Impression Primary Impression: Meniere disease Qualified Codes: H81.02 - Meniere's disease, left ear Disposition: 01 HOME, SELF-CARE Condition: Stable Departure-Patient Inst. Decision time for Depature: 21:58 Referrals: PEPE JC MD NO,LOCAL PHYSICIAN (PCP) Primary Care Physician Patient Instructions: Meniere Disease Add. Discharge Instructions: You have what is called vertigo likely from Mnire's disease. I will send a prescription to your pharmacy which you can try taking it a couple times a day. Follow-up with Dr. Jc who is a specialist for this in [place]. Scripts Meclizine HCl (Meclizine HCl) 25 Mg Tablet 25 MG PO Q12H PRN for VERTIGO for 14 Days, #28 TAB Prov: CATHI FELICIANO MD 01/05/22 Work/School Note: Work Release Form Date Seen in the Emergency Department: Jan 05, 2022 Return to Work: Jan 07, 2022 Restrictions: No Restrictions CATHI FELICIANO MD Jan 05, 2022 21:32
[2022-01-05] MEDS ORDERED: LAMO25TA8 (21:40)
--- NOTE | 2022-01-05 21:49 | Diagnostic Imaging Report ---
PROCEDURE: CT head without contrast. TECHNIQUE: Multiple contiguous axial images were obtained through the brain without the use of intravenous contrast. Auto Exposure Controls were utilized during the CT exam to meet ALARA standards for radiation dose reduction. DATE: January 05, 2022. COMPARISON: None. INDICATION: 26-year-old female, persistent vertigo. History of cerebral palsy. FINDINGS: There is ex vacuo dilation of the right lateral ventricle likely relating to sequela of prior insult. The additional ventricles are normal in size. There is no mass effect or midline shift. There is no acute intracranial hemorrhage. There is no abnormal extra-axial fluid collection. The visualized portions of the paranasal sinuses, mastoid air cells and middle ears are well aerated. IMPRESSION: 1. Ex vacuo dilation of the right lateral ventricle relating to sequela of remote prior insult. 2. No identified acute intracranial abnormality. Dictated by: Dictated on workstation # [id number]
[2022-01-05 22:00] VITALS: BP 123/70
== END 2022-01-05 22:00 | disposition home or self-care (01) ==
LOC: EDUNIT# 21:05 → ER FS 21:06
DX: H81.02 Meniere's disease, left ear (principal)
CPT/HCPCS: 70450

== ENCOUNTER 2022-01-24 14:26 | Emergency (ER) | payer MEDICAID ==
[~2022-01-24] VITALS: Ht 172 cm; Wt 78.0 kg
[~2022-01-24 14:26] MED LIST changes: +LAMO25TA8; +MECL-149 PO
[2022-01-24] MEDS ORDERED: KETOROLAC 60 MG/2 ML VIAL IM STA (14:32)
[2022-01-24] MEDS ORDERED: diphenhydrAMINE 50 MG/ML INJ (BENADRYL) IM STA (14:32)
[2022-01-24] MEDS ORDERED: ONDANSETRON 4 MG (ZOFRAN) ORAL DISSOLVE TAB PO STA (14:32)
[2022-01-24 14:36] VITALS: BP 135/84
--- NOTE | 2022-01-24 15:01 | ED Headache ---
General Chief Complaint: Head/Cervical Problems Stated Complaint: HEADACHE Nursing Triage Note: Patient complains of headache for 3 days. Source: patient History of Present Illness Date Seen by Provider: January 24, 2022 Time Seen by Provider: 14:29 Initial Comments 26-year-old female presenting with complaints of 3 days of headache that is generalized. She states that she continues to have dizziness from when she was seen at the end of December. She reports having a fall due to dizziness prior to the headache starting. She denies any nausea or vomiting. She has no change in her vision. She states that she has a headache and feels like she goes numb from her neck down due to the pain. She feels better when she is lying down but the pain is worse when she sits up. Timing/Duration: other (3 days constant) Severity/Quality: constant Location: global Prior Headaches/Recent Trauma: head trauma > 24 hrs ago (fall from standing 3 days ago and hit head on tile) Modifying Factors: worse with movement Associated Symptoms: No confusion, No fatigue, No facial pain, No fever/chills, No flushing, No loss of consciousness, No nausea/vomiting, No nasal congestion, No nasal drainage, No numbness in legs/feet, No rash, No seizures, No sinus infection, No stiff neck, No vision changes, No weakness Allergies and Home Medications Allergies Coded Allergies: diazepam (Unverified Adverse Reaction, Severe, stopped breathing, 01/05/22) Patient Home Medication List Home Medication List Reviewed: Yes Ibuprofen (Ibuprofen) 800 Mg Tablet, 800 MG PO Q8H PRN for PAIN Prescribed by: ALEKSANDR MCDONALD on 01/24/221730 Lamotrigine (Lamotrigine) 25 Mg Tablet, (Reported) Entered as Reported by: STEVE JAMES on 01/05/222139 Meclizine HCl (Meclizine HCl) 25 Mg Tablet, 25 MG PO Q12H PRN for VERTIGO Prescribed by: CATHI FELICIANO on 01/05/222130 Methocarbamol (Methocarbamol) 750 Mg Tablet, 1,500 MG PO Q8H PRN for neck p ain/muscle spasm Prescribed by: ALEKSANDR MCDONALD on 01/24/221730 Metronidazole (Metronidazole) 500 Mg Tablet, 500 MG PO BID Prescribed by: ALEKSANDR MCDONALD on 11/07/212056 Ondansetron (Ondansetron Odt) 4 Mg Tab.rapdis, 4 MG PO Q6H PRN for NAUSEA/VOMITING Prescribed by: ALEKSANDR MCDONALD on 11/07/212056 Pantoprazole Sodium (Pantoprazole Sodium) 40 Mg Tablet.dr, 40 MG PO DAILY Prescribed by: ALEKSANDR MCDONALD on 11/07/212056 Sulfamethoxazole/Trimethoprim (Bactrim Ds Tablet) 1 Each Tablet, 1 EACH PO BID Prescribed by: LISA DO on 10/31/211541 Review of Systems Review of Systems Constitutional: No chills; dizziness (recurrent since seen in December); No fever Eyes: Denies Blurred Vision, Denies Pain, Denies Photophobia, Denies Vision Changes Ears, Nose, Mouth, Throat: denies ear pain, denies ear discharge, denies nose pain, denies nose discharge, denies epistaxis, denies mouth pain Respiratory: No cough, No short of breath Cardiovascular: No chest pain Gastrointestinal: No nausea, No vomiting Genitourinary: No dysuria, No frequency Musculoskeletal: neck pain Skin: No change in color, No rash Psychiatric/Neurological: See HPI, Anxiety, Headache, Other Past Eczokwj-Ibmori-Toevaz Hx Patient Social History Tobacco Use?: No Use of E-Cig and/or Vaping dev: No Substance use?: No Alcohol Use?: No Pt feels they are or have been: Unable to obtain Immunizations Up To Date First/Initial COVID19 Vaccinat: non-vaccinated Second COVID19 Vaccination Joel: non-vaccinated Seasonal Allergies Seasonal Allergies: No Past Medical History Surgeries: No Respiratory: No Cardiac: No Neurological: No Genitourinary: No Gastrointestinal: No Musculoskeletal: No Endocrine: No HEENT: No Cancer: No Psychosocial: No Integumentary: No Physical Exam Vital Signs Vital Signs - First Documented 01/24/22 14:36 Temp 36.7 Pulse 78 Resp 14 B/P (MAP) 135/84 (101) Pulse Ox 98 O2 Delivery Room Air Capillary Refill : Height, Weight, BMI Height: 5'7.00" Weight: 147lbs. 0oz. 66.485375nz; 26.00 BMI Method:Stated General Appearance: no apparent distress HEENT: normal ENT inspection, TMs normal, pharynx normal; No photophobia, No TM abnormal (R), No TM abnormal (L); other (left eye lazy) Neck: full range of motion, supple, tender midline (upper cervical spine, muscle spasms to lateral muscles of cervical spine and paraspinal muscles) Cardiovascular: normal peripheral pulses, regular rate, rhythm Respiratory: chest non-tender, lungs clear, normal breath sounds, no respiratory distress, no accessory muscle use Gastrointestinal: normal bowel sounds, non tender, soft, no pulsatile mass Back: no CVA tenderness Extremities: normal range of motion, non-tender, normal inspection, no pedal edema, no calf tenderness, normal capillary refill Psychiatric: alert, oriented x 3 Crainal Nerves: normal hearing, normal speech, PERRL Coordination/Gait: normal gait Motor/Sensory: no motor deficit, no sensory deficit Skin: normal color, warm/dry Progress/Results/Core Measures Results/Orders Lab Results Laboratory Tests Test 01/24/22 15:29 Range/Units White Blood Count 6.5 4.3-11.0 10^3/uL Red Blood Count 4.48 3.80-5.11 10^6/uL Hemoglobin 12.9 11.5-16.0 g/dL Hematocrit 38 35-52 % Mean Corpuscular Volume 85 80-99 fL Mean Corpuscular Hemoglobin 29 25-34 pg Mean Corpuscular Hemoglobin Concent 34 32-36 g/dL Red Cell Distribution Width 11.6 10.0-14.5 % Platelet Count 189 130-400 10^3/uL Mean Platelet Volume 10.7 9.0-12.2 fL Immature Granulocyte % (Auto) 0 % Neutrophils (%) (Auto) 69 42-75 % Lymphocytes (%) (Auto) 22 12-44 % Monocytes (%) (Auto) 7 0-12 % Eosinophils (%) (Auto) 1 0-10 % Basophils (%) (Auto) 1 0-10 % Neutrophils # (Auto) 4.5 1.8-7.8 10^3/uL Lymphocytes # (Auto) 1.4 1.0-4.0 10^3/uL Monocytes # (Auto) 0.4 0.0-1.0 10^3/uL Eosinophils # (Auto) 0.1 0.0-0.3 10^3/uL Basophils # (Auto) 0.0 0.0-0.1 10^3/uL Immature Granulocyte # (Auto) 0.0 0.0-0.1 10^3/uL Prothrombin Time 14.1 12.2-14.7 SEC INR Comment 1.1 0.8-1.4 Activated Partial Thromboplast Time 35 24-35 SEC Sodium Level 138 135-145 MMOL/L Potassium Level 4.2 3.6-5.0 MMOL/L Chloride Level 106 98-107 MMOL/L Carbon Dioxide Level 24 21-32 MMOL/L Anion Gap 8 5-14 MMOL/L Blood Urea Nitrogen 10 7-18 MG/DL Creatinine 0.92 0.60-1.30 MG/DL Estimat Glomerular Filtration Rate 88 BUN/Creatinine Ratio 11 Glucose Level 85 70-105 MG/DL Calcium Level 9.1 8.5-10.1 MG/DL Corrected Calcium 9.0 8.5-10.1 MG/DL Magnesium Level 1.7 1.6-2.4 MG/DL Total Bilirubin 0.8 0.1-1.0 MG/DL Aspartate Amino Transf (AST/SGOT) 18 5-34 U/L Alanine Aminotransferase (ALT/SGPT) 11 0-55 U/L Alkaline Phosphatase 52 40-136 U/L Total Protein 7.0 6.4-8.2 GM/DL Albumin 4.1 3.2-4.5 GM/DL My Orders Orders - ALEKSANDR MCDONALD MD Ketorolac Injection (Toradol Injection) (01/24/22 14:32) Diphenhydramine Injection (Benadryl Inje (01/24/22 14:32) Ondansetron Oral Dissolve Tab (Zofran (01/24/22 14:32) Cbc With Automated Diff (01/24/22 15:18) Magnesium (01/24/22 15:18) Comprehensive Metabolic Panel (01/24/22 15:18) Protime With Inr (01/24/22 15:18) Partial Thromboplastin Time (01/24/22 15:18) O2 (01/24/22 15:18) Monitor-Rhythm Ecg Trace Only (01/24/22 15:18) Ed Iv/Invasive Line Start (01/24/22 15:18) Ns Iv 1000 Ml (Sodium Chloride 0.9%) (01/24/22 15:18) Dexamethasone Injection (Decadron Inje (01/24/22 15:18) Orphenadrine Inj (Ed Only) (Norflex Inje (01/24/22 15:18) Fentanyl Inj (Sublimaze Injection) (01/24/22 15:18) Ct Head/Cervical Spine Wo (01/24/22 15:21) Cervical Collar (01/24/22 16:22) Vital Signs/I&O 01/24/22 14:36 Temp 36.7 Pulse 78 Resp 14 B/P (MAP) 135/84 (101) Pulse Ox 98 O2 Delivery Room Air Blood Pressure Mean: 101 Progress Progress Note #1: Progress Note Based on her 3 days of symptoms will try Toradol, Benadryl, Zofran for migraine type cocktail. On recheck of the patient she states that her headache was no better. Will re peat blood work and CT scan from 3 weeks ago and try giving IV fluids 1 L normal saline for IV fluid hydration. Decadron 10 mg IV, Norflex 60 mg IV, fentanyl 50 mcg IV. Progress Note #2: Time: 16:16 Progress Note Labs are all stable without acute significant abnormality. Her CT scan of the head showed no acute intracranial process and appeared stable from prior imaging. CT scan cervical spine showed a lucency in the C2 lamina on the left. This was nondisplaced and concerning for possible fracture. There were no other abnormality seen in the rest of the cervical spine. As patient has no neurodeficits I reviewed the online up-to-date medical reference and recommended cervical collar. Images were clouded to [facility] to try and get a consult from the on-call spine provider. Updated patient and placed in a soft cervical collar as the only other option was a rigid cervical collar which would cause skin breakdown if she had to wear it for prolonged time. Patient reports that her headache is improving down to 5 and continue to get better. Awaiting callback from spine provider from [facility] Progress Note #3: Time: 17:16 Progress Note HAZEL Garcia, from [facility] transfer center called back after speaking with Dr. Rodas from neurosurgery. He had reviewed the images and felt that the area may be more of a vascular channel within the fracture. However since she was complaining of pain will place in a cervical collar for 8 weeks and she needs to follow-up to get cleared out of the cervical collar. Counseled on follow-up and return precautions. Given phone number for the follow-up at [facility]. Diagnostic Imaging Diagonstic Imaging: CT Plain Films/CT/US/NM/MRI: c-spine, head Comments [facility] [place] [place] NAME: WARNER HALE [facility] REC#: [id number] PT STATUS: REG ER : 1995 PHYSICIAN: ALEKSANDR MCDONALD MD ADMIT DATE: 01/24/22/ER FS Draft Date of Exam:01/24/22 CT HEAD/CERVICAL SPINE WO PROCEDURE: CT head and CT cervical spine without contrast. TECHNIQUE: Multiple contiguous axial images were obtained through the brain and cervical spine without the use of intravenous contrast. Sagittal and coronal reformations through the cervical spine were then performed. Auto Exposure Controls were utilized during the CT exam to meet ALARA standards for radiation dose reduction. INDICATION: Headache and dizziness as well as recent fall. CORRELATION is made with prior head CT from 01/05/2022. CT HEAD: Ventricular size appears stable with ex vacuo dilatation of the right lateral ventricle, similar to prior CT. No sulcal effacement or midline shift is detected. No acute intra-axial or extra-axial hemorrhage is detected. Cisterns are patent. Visualized paranasal sinuses are clear. IMPRESSION: Stable head CT when compared with exam from 01/05/2022. No acute intracranial process is detected. CT CERVICAL SPINE: Curvature and alignment of the cervical spine is normal. The axial images demonstrate a subtle lucency in the left lamina of C2, suspicious for a fracture line. No other fractures are identified. The prevertebral tissues are unremarkable. Odontoid appears intact. IMPRESSION: There is a lucency through the left lamina of C2, suspicious for a nondisplaced fracture. No other abnormalities are detected. Dictated on workstation # [id number] Dict: 01/24/22 1541 Trans: 01/24/22 1552 [facility] [id number] Interpreted by: FRANCK PACHECO MD Electronically signed by: Reviewed: Reviewed by Me Departure Impression Primary Impression: Generalized headache Additional Impression: Fracture of lamina of cervical vertebra Qualified Codes: S12.8XXA - Fracture of other parts of neck, initial encounter Disposition: 01 HOME, SELF-CARE Condition: Stable Departure-Patient Inst. Decision time for Depature: 17:24 Referrals: NO,LOCAL PHYSICIAN (PCP/Family) Primary Care Physician Patient Instructions: Headache, Adult ED, Neck Pain ED Add. Discharge Instructions: Wear the cervical collar for the next 8 weeks. Follow up with Spine doctor at [facility] about your neck pain and to be cleared from wearing the Cervical Collar. They want to see you in 8 weeks in the clinic at [facility]. Call in the am to [phone] to make an appointment. If you are having more problems or concerns you could check to see if they could see you before the 8 weeks. Stay well hydrated and drink plenty of fluids. Try taking the muscle relaxer and anti-inflammatory to help with pain. All discharge instructions reviewed with patient and/or family. Voiced understanding. Scripts Methocarbamol (Methocarbamol) 750 Mg Tablet 1500 MG PO Q8H PRN for neck pain/muscle spasm for 10 Days, #60 TAB 0 Refills Prov: ALEKSANDR MCDONALD MD 01/24/22 Ibuprofen (Ibuprofen) 800 Mg Tablet 800 MG PO Q8H PRN for PAIN for 10 Days, #30 TAB 0 Refills Prov: ALEKSANDR MCDONALD MD 01/24/22 Work/School Note: Work Release Form Date Seen in the Emergency Department: January 24, 2022 Return to Work: January 26, 2022 Restrictions: Need Release from Doctor Other Restrictions Listed Below: wear Cervical Collar x 8 weeks until cleared by Spine doctor ALEKSANDR MCDONALD MD January 24, 2022 15:01
[2022-01-24] MEDS ORDERED: NS IV 1000 ML 1,000 ML IV STA (15:18)
[2022-01-24] MEDS ORDERED: fentaNYL INJ 100 MCG/2 ML AMP IVP STA (15:18)
[2022-01-24] MEDS ORDERED: ORPHENADRINE 60 MG/2 ML (NORFLEX) AMP (ED ONLY) IVP STA (15:18)
[2022-01-24 15:32] LABS: BASOPHILS % (AUTO) 1 % (0-10); EOSINOPHILS # (AUTO) 0.1 10^3/uL (0.0-0.3); EOSINOPHILS % (AUTO) 1 % (0-10); HEMATOCRIT 38 % (35-52); HEMOGLOBIN 12.9 g/dL (11.5-16.0); LYMPHOCYTES # (AUTO) 1.4 10^3/uL (1.0-4.0); LYMPHOCYTES % (AUTO) 22 % (12-44); MEAN CORPUSCULAR HEMOGLOBIN 29 pg (25-34); MEAN CORPUSCULAR HGB CONC 34 g/dL (32-36); MEAN CORPUSCULAR VOLUME 85 fL (80-99); MEAN PLATELET VOLUME 10.7 fL (9.0-12.2); MONOCYTES # (AUTO) 0.4 10^3/uL (0.0-1.0); MONOCYTES % (AUTO) 7 % (0-12); NEUTROPHILS # (AUTO) 4.5 10^3/uL (1.8-7.8); NEUTROPHILS % (AUTO) 69 % (42-75); PLATELET COUNT 189 10^3/uL (130-400); WHITE BLOOD COUNT 6.5 10^3/uL (4.3-11.0)
[2022-01-24 15:42] LABS: INR 1.1 (0.8-1.4); PROTHROMBIN TIME PATIENT 14.1 SEC (12.2-14.7)
--- NOTE | 2022-01-24 15:52 | Diagnostic Imaging Report ---
PROCEDURE: CT head and CT cervical spine without contrast. TECHNIQUE: Multiple contiguous axial images were obtained through the brain and cervical spine without the use of intravenous contrast. Sagittal and coronal reformations through the cervical spine were then performed. Auto Exposure Controls were utilized during the CT exam to meet ALARA standards for radiation dose reduction. INDICATION: Headache and dizziness as well as recent fall. CORRELATION is made with prior head CT from 01/05/2022. CT HEAD: Ventricular size appears stable with ex vacuo dilatation of the right lateral ventricle, similar to prior CT. No sulcal effacement or midline shift is detected. No acute intra-axial or extra-axial hemorrhage is detected. Cisterns are patent. Visualized paranasal sinuses are clear. IMPRESSION: Stable head CT when compared with exam from 01/05/2022. No acute intracranial process is detected. CT CERVICAL SPINE: Curvature and alignment of the cervical spine is normal. The axial images demonstrate a subtle lucency in the left lamina of C2, suspicious for a fracture line. No other fractures are identified. The prevertebral tissues are unremarkable. Odontoid appears intact. IMPRESSION: There is a lucency through the left lamina of C2, suspicious for a nondisplaced fracture. No other abnormalities are detected. Dictated by: Dictated on workstation # [id number]
[2022-01-24 15:56] LABS: BILIRUBIN,TOTAL 0.8 MG/DL (0.1-1.0); CALCIUM 9.1 MG/DL (8.5-10.1); CREATININE SERUM 0.92 MG/DL (0.60-1.30); MAGNESIUM 1.7 MG/DL (1.6-2.4); POTASSIUM 4.2 MMOL/L (3.6-5.0)
[2022-01-24 15:57] LABS: ALBUMIN 4.1 GM/DL (3.2-4.5)
[2022-01-24] MEDS ORDERED: IBUP-1780 PO (17:31)
[2022-01-24] MEDS ORDERED: METH-732 PO (17:31)
== END 2022-01-24 17:40 | disposition home or self-care (01) ==
LOC: EDUNIT# 14:26 → ER FS 14:27
DX: S12.101A Unspecified nondisplaced fracture of second cervical vertebra, initial encounter for closed fracture (principal); W18.30XA Fall on same level, unspecified, initial encounter
CPT/HCPCS: 36415; 70450; 72125; 80053; 83735; 85025; 85610; 85730

== ENCOUNTER 2022-01-31 19:28 | Emergency (ER) | payer MEDICAID, OTHER ==
[~2022-01-31] VITALS: Ht 172.7 cm; Wt 78.6 kg
[~2022-01-31 19:28] MED LIST changes: +METH-732 PO
[2022-01-31 19:35] VITALS: BP 132/85
--- NOTE | 2022-01-31 19:49 | ED Lower Extremity ---
General Chief Complaint: Lower Extremity Stated Complaint: LEFT KNEE PAIN Source: patient History of Present Illness Date Seen by Provider: January 31, 2022 Time Seen by Provider: 19:33 Initial Comments 26-year-old female presenting yet again for another emergency department visit for multiple complaints. She states that today she was at work and felt like he r left knee had locked up on her and then she heard a snap. She has had pain in her knee since then. That happened around 4:30 PM. She states that they tried to apply ice and she took ibuprofen around 5 PM. She continues to have pain and feels more pain when she tries to bear weight or walk. She denies having previous problems with this knee in the past. Onset: this afternoon Severity: severe Pain/Injury Location: left knee Method of Injury: unknown Modifying Factors: Worse With Movement Allergies and Home Medications Allergies Coded Allergies: diazepam (Verified Allergy, Unknown, 01/31/22) Patient Home Medication List Home Medication List Reviewed: Yes Ibuprofen (Ibuprofen) 800 Mg Tablet, 800 MG PO Q8H PRN for PAIN Prescribed by: ALEKSANDR MCDONALD on 01/31/222013 Review of Systems Constitutional: No chills, No fever EENTM: no symptoms reported Respiratory: no symptoms reported Cardiovascular: no symptoms reported Gastrointestinal: no symptoms reported Genitourinary: no symptoms reported Musculoskeletal: see HPI Skin: No rash Psychiatric/Neurological: Denies Numbness, Denies Paresthesia Past Tnuxjqk-Isfdjy-Kqxzak Hx Patient Social History Tobacco Use?: No Substance use?: No Alcohol Use?: No Pt feels they are or have been: No Physical Exam Vital Signs Vital Signs - First Documented 01/31/22 19:35 Temp 35.7 Pulse 78 Resp 14 B/P (MAP) 132/85 (101) Pulse Ox 98 O2 Delivery Room Air Capillary Refill : Height, Weight, BMI Height: '" Weight: lbs. oz. kg; BMI Method: General Appearance: WD/WN, no apparent distress Cardiovascular: normal peripheral pulses Knees: left knee pain, left knee soft tissue tenderness, left knee swelling (Mild swelling to the knee with soft tissue tenderness and pain with movement. There is no redness or erythema. There is no increased warmth. There is no crepitus.) Neurologic/Tendon: normal sensation, normal motor functions, normal tendon functions Neurologic/Psychiatric: alert, oriented x 3 Skin: normal color, warm/dry Progress/Results/Core Measures Results/Orders My Orders Orders - ALEKSANDR MCDONALD MD Knee 3 View Left (01/31/22 19:45) Knee Immobilizer (01/31/22 20:10) Vital Signs/I&O 01/31/22 19:35 Temp 35.7 Pulse 78 Resp 14 B/P (MAP) 132/85 (101) Pulse Ox 98 O2 Delivery Room Air Progress Progress Note #1: Progress Note Will obtain x-rays to evaluate her knee. She had already taken ibuprofen prior to coming to the ED Progress Note #2: Progress Note No acute fracture or dislocation seen on x-rays. Placed in knee immobilizer and counseled to follow-up with clinic for continued concerns. Continue with NSAIDs for pain. Ice rest and elevation for pain. Diagnostic Imaging Diagonstic Imaging: Xray Plain Films/CT/US/NM/MRI: knee Comments [facility] [place] NAME: WARNER HALE [facility] REC#: [id number] PT STATUS: REG ER : 1995 PHYSICIAN: ALEKSANDR MCDONALD MD ADMIT DATE: 01/31/22/ER FS Signed Date of Exam:01/31/22 KNEE 3 VIEW LEFT INDICATION: Knee popped. Knee pain. FINDINGS: Alignment of the knee is appropriate. There are small osteophytes arising off of the medial femoral condyle and the medial tibial plateau. There may be a trace joint effusion. There is no focal soft tissue abnormality or foreign body. IMPRESSION: Mild osteoarthritic changes in the medial compartment of the left knee with possible trace effusion. There is no malalignment or evidence of an acute fracture. Dictated by: Dictated on workstation # [id number] Dict: 01/31/221955 Trans: 01/31/222001 NICKI [id number] Interpreted by: LELAND SAGE MD Electronically signed by: LELAND SAGE MD 01/31/222001 Reviewed: Reviewed by Me Departure Impression Primary Impression: Left knee pain Qualified Codes: M25.562 - Pain in left knee Disposition: 01 HOME, SELF-CARE Condition: Stable Departure-Patient Inst. Decision time for Depature: 20:11 Referrals: NO,LOCAL PHYSICIAN (PCP) Primary Care Physician [facility] [phone] check with clinic about follow up Patient Instructions: Knee Pain ED, Knee Brace ED Add. Discharge Instructions: Wear knee immobilizer to help with pain in your knee. Continue taking Ibuprofen for pain and use Ice 20 - 30 minutes every few hours as needed for pain. Try to elevate your knee to help with swelling and pain. Check back with clinic for continued pain or if not improving they may refer you to Orthopedics or have Physical Therapy help you with your knee. All discharge instructions reviewed with patient and/or family. Voiced understanding. Scripts Ibuprofen (Ibuprofen) 800 Mg Tablet 800 MG PO Q8H PRN for PAIN for 10 Days, #30 TAB 0 Refills Prov: ALEKSANDR MCDONALD MD 01/31/22 Work/School Note: Work Release Form Date Seen in the Emergency Department: January 31, 2022 Return to Work: February 01, 2022 Restrictions: No Sports-Until Released Other Restrictions Listed Below: Wear knee immobilizer for the next week. If not improving see clinic. ALEKSANDR MCDONALD MD January 31, 2022 19:49
--- NOTE | 2022-01-31 20:02 | Diagnostic Imaging Report ---
INDICATION: Knee popped. Knee pain. FINDINGS: Alignment of the knee is appropriate. There are small osteophytes arising off of the medial femoral condyle and the medial tibial plateau. There may be a trace joint effusion. There is no focal soft tissue abnormality or foreign body. IMPRESSION: Mild osteoarthritic changes in the medial compartment of the left knee with possible trace effusion. There is no malalignment or evidence of an acute fracture. Dictated by: Dictated on workstation # [id number]
[2022-01-31] MEDS ORDERED: IBUP-1780 PO (20:14)
== END 2022-01-31 20:25 | disposition home or self-care (01) ==
LOC: MERGE 19:38 → ER FS 19:38
DX: M25.462 Effusion, left knee (principal); X50.1XXA Overexertion from prolonged static or awkward postures, initial encounter; Y92.59 Other trade areas as the place of occurrence of the external cause; Y99.0 Civilian activity done for income or pay
CPT/HCPCS: 73562; 99283; L1830

== ENCOUNTER 2022-02-11 12:33 | Emergency (ER) | payer MEDICAID ==
[~2022-02-11] VITALS: Ht 175.2 cm; Wt 67.3 kg
[2022-02-11] MEDS ORDERED: diphenhydrAMINE 50 MG/ML INJ (BENADRYL) IVP STA (13:01)
[2022-02-11] MEDS ORDERED: METOCLOPRAMIDE INJ 10 MG/2 ML (REGLAN) IVP STA (13:01)
[2022-02-11] MEDS ORDERED: KETOROLAC 30 MG/ML VIAL IVP STA (13:01)
[2022-02-11] MEDS ORDERED: NS IV 1000 ML 1,000 ML IV STA (13:01)
--- NOTE | 2022-02-11 13:11 | ED Headache ---
General Chief Complaint: Head/Cervical Problems Stated Complaint: DIZZINESS; HEADACHE Nursing Triage Note: PT ARRIVAL TO ER WITH COMPLAINTS OF HEADACHE/WEAKNESS/DIZZINESS SINCE YESTERDAY AFTER HAVING ROUTINE LABS DRAWN. Source: patient, old records History of Present Illness Date Seen by Provider: Feb 11, 2022 Time Seen by Provider: 12:36 Initial Comments 26-year-old female presenting with complaints of pain to the back of her head and dizziness with nausea and vomiting. She also states that she feels like she is shaking all over. She states this is been worse since she had blood drawn yesterday with the [facility] clinic. She has been seen several times in the emergency department for the very similar complaints. She has had several CT scans of her head as well as blood work in the past. She was advised that she may have Mnire's disease and needed to follow-up with ENT in the clinic. She states that the have not referred her to ENT because they are waiting on her blood work from yesterday to come back. She denies any new head injury or trauma. She states that the headache came on on its own without any trigger. Nothing makes it better or worse. She denies any light sensitivity, change in vision, chest pain, abdominal pain, cough, diarrhea, pain with urination. Timing/Duration: other (Headache has been present off and on with the dizziness for several months.) Severity/Quality: severe, constant, pressure Location: occipital Prior Headaches/Recent Trauma: frequent headaches, chronic headaches Modifying Factors: worse with movement Associated Symptoms: No confusion, No fatigue, No facial pain, No fever/chills, No flushing, No loss of consciousness; nausea/vomiting (x 1 episode); No nasal drainage, No numbness in legs/feet, No rash, No seizures, No sinus infection, No stiff neck, No vision changes, No weakness Allergies and Home Medications Allergies Coded Allergies: diazepam (Unverified Adverse Reaction, Severe, stopped breathing, 01/05/22) Patient Home Medication List Home Medication List Reviewed: Yes Ibuprofen (Ibuprofen) 800 Mg Tablet, 800 MG PO Q8H PRN for PAIN Prescribed by: ALEKSANDR MCDONALD on 01/24/221730 Ibuprofen (Ibuprofen) 800 Mg Tablet, 800 MG PO Q8H PRN for PAIN Prescribed by: ALEKSANDR MCDONALD on 01/31/222013 Lamotrigine (Lamotrigine) 25 Mg Tablet, (Reported) Entered as Reported by: STEVE JAMES on 01/05/222139 Meclizine HCl (Meclizine HCl) 25 Mg Tablet, 25 MG PO Q12H PRN for VERTIGO Prescribed by: CATHI FELICIANO on 01/05/222130 Methocarbamol (Methocarbamol) 750 Mg Tablet, 1,500 MG PO Q8H PRN for neck pain/muscle spasm Prescribed by: ALEKSANDR MCDONALD on 01/24/22 173 Metronidazole (Metronidazole) 500 Mg Tablet, 500 MG PO BID Prescribed by: ALEKSANDR MCDONALD on 11/07/212056 Ondansetron (Ondansetron Odt) 4 Mg Tab.rapdis, 4 MG PO Q6H PRN for NAUSEA/VOMITING Prescribed by: ALEKSANDR MCDONALD on 11/07/212056 Ondansetron (Ondansetron Odt) 4 Mg Tab.rapdis, 4 MG PO Q6H PRN for NAUSEA/VOMITING Prescribed by: ALEKSANDR MCDONALD on 02/11/22 141 Pantoprazole Sodium (Pantoprazole Sodium) 40 Mg Tablet.dr, 40 MG PO DAILY Prescribed by: ALEKSANDR MCDONALD on 11/07/212056 Sulfamethoxazole/Trimethoprim (Bactrim Ds Tablet) 1 Each Tablet, 1 EACH PO BID Prescribed by: LISA DO on 10/31/21 1542 Sulfamethoxazole/Trimethoprim (Bactrim Ds Tablet) 1 Each Tablet, 1 EACH PO BID Prescribed by: ALEKSANDR MCDONALD on 02/11/22 141 Review of Systems Review of Systems Constitutional: No chills; dizziness; No fever Eyes: Denies Blindness, Denies Blurred Vision, Denies Drainage, Denies Pain, Denies Photophobia, Denies Vision Changes Ears, Nose, Mouth, Throat: denies ear pain, denies ear discharge, denies nose pain, denies nose discharge, denies epistaxis Respiratory: No cough, No short of breath Cardiovascular: No chest pain Gastrointestinal: nausea, vomiting (x 1 episode) Genitourinary: No dysuria Musculoskeletal: no symptoms reported Skin: No rash Psychiatric/Neurological: See HPI (feels like she is shaking all over) Past Xkqecsj-Bufqdi-Zaqngw Hx Patient Social History Tobacco Use?: No Use of E-Cig and/or Vaping dev: No Substance use?: No Alcohol Use?: No Pt feels they are or have been: No Immunizations Up To Date Influenza Vaccine Up-to-Date: Yes; Up-to-Date First/Initial COVID19 Vaccinat: non-vaccinated Second COVID19 Vaccination Joel: non-vaccinated Third COVID19 Vaccination Date: non-vaccinated Seasonal Allergies Seasonal Allergies: No Past Medical History Surgeries: No Respiratory: No Cardiac: No Neurological: No Genitourinary: No Gastrointestinal: No Musculoskeletal: No Endocrine: No HEENT: No Cancer: No Psychosocial: No Integumentary: No Physical Exam Vital Signs Vital Signs - First Documented 02/11/22 12:40 Temp 36.4 Pulse 74 Resp 20 B/P (MAP) 148/88 (108) Pulse Ox 99 O2 Delivery Room Air Capillary Refill : Less Than 3 Seconds Height, Weight, BMI Height: 5'7.00" Weight: 147lbs. 0oz. [id number]; 21.00 BMI Method:Stated General Appearance: no apparent distress HEENT: pharynx normal; No photophobia; other (Negative kong sign negative raccoon sign no CSF otorrhea, no CSF rhinorrhea) Neck: non-tender, full range of motion, supple, normal inspection Cardiovascular: normal peripheral pulses, regular rate, rhythm Respiratory: chest non-tender, lungs clear, normal breath sounds, no respiratory distress, no accessory muscle use Gastrointestinal: normal bowel sounds, non tender, soft, no pulsatile mass Back: no CVA tenderness, no vertebral tenderness Extremities: normal range of motion, non-tender, no pedal edema, no calf tenderness, normal capillary refill Psychiatric: alert, oriented x 3 Crainal Nerves: normal hearing, normal speech, PERRL, abnormal eye position (chronic right eye strabismus) Coordination/Gait: normal gait Motor/Sensory: no motor deficit, no sensory deficit Skin: normal color, warm/dry; No rash Progress/Results/Core Measures Results/Orders Lab Results Laboratory Tests Test 02/11/22 13:07 02/11/22 13:10 Range/Units Urine Color YELLOW Urine Clarity CLEAR Urine pH 6.0 5-9 Urine Specific [place] 1.025 H 1.016-1.022 Urine Protein NEGATIVE NEGATIVE Urine Glucose (UA) NEGATIVE NEGATIVE Urine Ketones NEGATIVE NEGATIVE Urine Nitrite POSITIVE H NEGATIVE Urine Bilirubin NEGATIVE NEGATIVE Urine Urobilinogen 0.2 < = 1.0 MG/DL Urine Leukocyte Esterase 3+ H NEGATIVE Urine RBC (Auto) 1+ H NEGATIVE Urine RBC NONE /HPF Urine WBC 25-50 H /HPF Urine Crystals PRESENT H /LPF Urine Triple Phosphate Crystals FEW H /LPF Urine Bacteria LARGE H /HPF Urine Casts NONE /LPF Urine Mucus NEGATIVE /LPF Urine Culture Indicated YES Urine Opiates Screen NEGATIVE NEGATIVE Urine Oxycodone Screen NEGATIVE NEGATIVE Urine Methadone Screen NEGATIVE NEGATIVE Urine Propoxyphene Screen NEGATIVE NEGATIVE Urine Barbiturates Screen NEGATIVE NEGATIVE Ur Tricyclic Antidepressants Screen NEGATIVE NEGATIVE Urine Phencyclidine Screen NEGATIVE NEGATIVE Urine Amphetamines Screen NEGATIVE NEGATIVE Urine Methamphetamines Screen NEGATIVE NEGATIVE Urine Benzodiazepines Screen NEGATIVE NEGATIVE Urine Cocaine Screen NEGATIVE NEGATIVE Urine Cannabinoids Screen NEGATIVE NEGATIVE White Blood Count 7.1 4.3-11.0 10^3/uL Red Blood Count 4.63 3.80-5.11 10^6/uL Hemoglobin 13.5 11.5-16.0 g/dL Hematocrit 40 35-52 % Mean Corpuscular Volume 87 80-99 fL Mean Corpuscular Hemoglobin 29 25-34 pg Mean Corpuscular Hemoglobin Concent 34 32-36 g/dL Red Cell Distribution Width 11.9 10.0-14.5 % Platelet Count 187 130-400 10^3/uL Mean Platelet Volume 11.2 9.0-12.2 fL Immature Granulocyte % (Auto) 0 % Neutrophils (%) (Auto) 56 42-75 % Lymphocytes (%) (Auto) 31 12-44 % Monocytes (%) (Auto) 7 0-12 % Eosinophils (%) (Auto) 5 0-10 % Basophils (%) (Auto) 1 0-10 % Neutrophils # (Auto) 4.0 1.8-7.8 10^3/uL Lymphocytes # (Auto) 2.2 1.0-4.0 10^3/uL Monocytes # (Auto) 0.5 0.0-1.0 10^3/uL Eosinophils # (Auto) 0.3 0.0-0.3 10^3/uL Basophils # (Auto) 0.1 0.0-0.1 10^3/uL Immature Granulocyte # (Auto) 0.0 0.0-0.1 10^3/uL Prothrombin Time 13.7 12.2-14.7 SEC INR Comment 1.0 0.8-1.4 Activated Partial Thromboplast Time 33 24-35 SEC Sodium Level 139 135-145 MMOL/L Potassium Level 4.4 3.6-5.0 MMOL/L Chloride Level 106 98-107 MMOL/L Carbon Dioxide Level 24 21-32 MMOL/L Anion Gap 9 5-14 MMOL/L Blood Urea Nitrogen 17 7-18 MG/DL Creatinine 0.95 0.60-1.30 MG/DL Estimat Glomerular Filtration Rate 84 BUN/Creatinine Ratio 18 Glucose Level 94 70-105 MG/DL Calcium Level 9.0 8.5-10.1 MG/DL Corrected Calcium 8.8 8.5-10.1 MG/DL Magnesium Level 1.8 1.6-2.4 MG/DL Total Bilirubin 0.2 0.1-1.0 MG/DL Aspartate Amino Transf (AST/SGOT) 16 5-34 U/L Alanine Aminotransferase (ALT/SGPT) 11 0-55 U/L Alkaline Phosphatase 50 40-136 U/L C-Reactive Protein < 0.30 <0.50 MG/DL Total Protein 7.0 6.4-8.2 GM/DL Albumin 4.2 3.2-4.5 GM/DL Lipase 57 8-78 U/L Serum Test, Qualitative NEGATIVE NEGATIVE Serum Alcohol < 10 <10 MG/DL My Orders Orders - ALEKSANDR MCDONALD MD Cbc With Automated Diff (02/11/22 12:59) Magnesium (02/11/22 12:59) Comprehensive Metabolic Panel (02/11/22 12:59) Protime With Inr (02/11/22 12:59) Partial Thromboplastin Time (02/11/22 12:59) Ed Iv/Invasive Line Start (02/11/22 12:59) Lipase (02/11/22 12:59) Ua Culture If Indicated (02/11/22 12:59) Drug Screen Stat (Urine) (02/11/22 12:59) Alcohol (02/11/22 12:59) Crp Fs (02/11/22 12:59) Hcg,Qualitative Serum (02/11/22 13:01) Ns Iv 1000 Ml (Sodium Chloride 0.9%) (02/11/22 13:01) Ketorolac Injection (Toradol Injection) (6/4/22 13:01) Diphenhydramine Injection (Benadryl Inje (02/11/22 13:01) Metoclopramide Injection (Reglan Injecti (02/11/22 13:01) Urine Culture (02/11/22 13:07) Ceftriaxone 1 Gm Pre-Mix (Rocephin 1 Gm (02/11/22 13:57) Vital Signs/I&O 02/11/22 02/11/22 12:40 14:22 Temp 36.4 Pulse 74 70 Resp 20 20 B/P (MAP) 148/88 (108) 131/77 Pulse Ox 99 98 O2 Delivery Room Air Room Air Blood Pressure Mean: 108 Progress Progress Note #1: Progress Note Since she has had several CT scans to evaluate her head including some recently here in January will defer repeat CT of her head to save patient some radiation as she has had no new injury or trauma to her head. Try checking basic labs to look for any electrolyte imbalance or signs of infection. From a headache standpoint try IV fluids with Toradol, Benadryl, Reglan. Progress Note #2: Progress Note Her CBC and chemistry appear stable without acute significant abnormality. Her urinalysis shows signs of dehydration and UTI. She has nitrites, leukocyte esterase, large amount of bacteria. Will obtain cultures of the urine. Give Rocephin 1 g IV here. Continue antibiotics at home. Encouraged to follow-up through clinic for chronic headache and continued dizziness. Departure Impression Primary Impression: Cystitis without hematuria Additional Impressions: Chronic headache Qualified Codes: R51.9 - Headache, unspecified; G89.29 - Other chronic pain Dizziness Dehydration Disposition: HOME, SELF-CARE Condition: Stable Departure-Patient Inst. Decision time for Depature: 14:07 Referrals: [facility] (PCP/Family) Primary Care Physician Patient Instructions: Dizziness, Adult ED, Urinary Tract Infection, Adult ED, Dehydration, Adult ED, Headache, Adult ED Add. Discharge Instructions: Take the full course of antibiotics to treat for urine infection. The urine infection and dehydration can make you dizziness and headache worse. Check back with your regular provider for continued concerns. Stay well-hydrated and drink plenty of fluids. All discharge instructions reviewed with patient and/or family. Voiced understanding. Scripts Ondansetron (Ondansetron Odt) 4 Mg Tab.rapdis 4 MG PO Q6H PRN for NAUSEA/VOMITING for 3 Days, #12 TAB 0 Refills Prov: ALEKSANDR MCDONALD MD 02/11/22 Sulfamethoxazole/Trimethoprim (Bactrim Ds Tablet) 1 Each Tablet 1 EACH PO BID for UTI for 10 Days, #20 TAB 0 Refills Prov: ALEKSANDR MCDONALD MD 02/11/22 Work/School Note: Work Release Form Date Seen in the Emergency Department: Feb 11, 2022 Return to Work: Feb 13, 2022 Restrictions: No Restrictions ALEKSANDR MCDONALD MD Feb 11, 2022 13:11
[2022-02-11 13:12] LABS: BILIRUBIN,URINE NEGATIVE (NEGATIVE); CLARITY,URINE CLEAR; COLOR,URINE YELLOW; GLUCOSE, URINE (UA) NEGATIVE (NEGATIVE); KETONES,URINE NEGATIVE (NEGATIVE); LEUKOCYTE ESTERASE ,URINE 3+ (NEGATIVE); NITRITE,URINE POSITIVE (NEGATIVE); PROTEIN,URINE NEGATIVE (NEGATIVE)
[2022-02-11 13:15] LABS: BASOPHILS # (AUTO) 0.1 10^3/uL (0.0-0.1); BASOPHILS % (AUTO) 1 % (0-10); EOSINOPHILS # (AUTO) 0.3 10^3/uL (0.0-0.3); EOSINOPHILS % (AUTO) 5 % (0-10); HEMATOCRIT 40 % (35-52); HEMOGLOBIN 13.5 g/dL (11.5-16.0); LYMPHOCYTES # (AUTO) 2.2 10^3/uL (1.0-4.0); LYMPHOCYTES % (AUTO) 31 % (12-44); MEAN CORPUSCULAR HEMOGLOBIN 29 pg (25-34); MEAN CORPUSCULAR HGB CONC 34 g/dL (32-36); MEAN CORPUSCULAR VOLUME 87 fL (80-99); MEAN PLATELET VOLUME 11.2 fL (9.0-12.2); MONOCYTES # (AUTO) 0.5 10^3/uL (0.0-1.0); MONOCYTES % (AUTO) 7 % (0-12); NEUTROPHILS % (AUTO) 56 % (42-75); PLATELET COUNT 187 10^3/uL (130-400); WHITE BLOOD COUNT 7.1 10^3/uL (4.3-11.0)
[2022-02-11 13:21] LABS: BACTERIA,URINE LARGE /HPF; TRIPLE PHOSPHATE CRYSTAL,UR FEW /LPF; WBC,URINE 25-50 /HPF
[2022-02-11 13:24] LABS: PROTHROMBIN TIME PATIENT 13.7 SEC (12.2-14.7)
[2022-02-11 13:26] LABS: AMPHETAMINE SCREEN, URINE NEGATIVE (NEGATIVE); BARBITURATE SCREEN URINE NEGATIVE (NEGATIVE); BENZODIAZEPINES SCREEN URINE NEGATIVE (NEGATIVE); CANNABINOID SCREEN, URINE NEGATIVE (NEGATIVE); COCAINE SCREEN URINE NEGATIVE (NEGATIVE); METHADONE STAT NEGATIVE (NEGATIVE); OPIATE SCREEN URINE NEGATIVE (NEGATIVE); OXYCODONE STAT NEGATIVE (NEGATIVE); PROPOXYPHENE STAT NEGATIVE (NEGATIVE); TRICYCLIC ANTIDEPRESSANTS SCRE NEGATIVE (NEGATIVE)
[2022-02-11 13:36] LABS: POTASSIUM 4.4 MMOL/L (3.6-5.0); SODIUM 139 MMOL/L (135-145)
[2022-02-11 13:37] LABS: ALANINE AMINOTRANSFERASE 11 U/L (0-55); ALBUMIN 4.2 GM/DL (3.2-4.5); ALKALINE PHOSPHATASE 50 U/L (40-136); BILIRUBIN,TOTAL 0.2 MG/DL (0.1-1.0); BUN/CREATININE RATIO 18; CARBON DIOXIDE 24 MMOL/L (21-32); CHLORIDE 106 MMOL/L (98-107); CREATININE SERUM 0.95 MG/DL (0.60-1.30); GFR ESTIMATED 84; GLUCOSE 94 MG/DL (70-105); LIPASE 57 U/L (8-78); MAGNESIUM 1.8 MG/DL (1.6-2.4)
[2022-02-11] MEDS ORDERED: cefTRIAXone 1 GM PRE-MIX 50 ML IV STA (13:57)
[2022-02-11] MEDS ORDERED: SULF1TAB38 PO (14:10)
[2022-02-11] MEDS ORDERED: ONDA4TAB11 PO (14:10)
[2022-02-11 14:22] VITALS: BP 131/77
== END 2022-02-11 14:39 | disposition home or self-care (01) ==
LOC: EDUNIT# 12:33 → ER FS 12:35
DX: N30.00 Acute cystitis without hematuria (principal); R42 Dizziness and giddiness; E86.0 Dehydration; G89.29 Other chronic pain; R51.9 Headache, unspecified; Z32.02 Encounter for pregnancy test, result negative; Z28.310 Unvaccinated for COVID-19
CPT/HCPCS: 36415; 80053; 80306; 81000; 83690; 83735; 84703 ×2; 85025; 85610; 85730; 86141; 87077; 87088; 87186; 99284; G0480; 80320

== ENCOUNTER 2022-02-28 18:18 | Emergency (ER) | payer MEDICAID ==
[~2022-02-28] VITALS: Ht 172.7 cm; Wt 77.8 kg
[2022-02-28 18:23] VITALS: BP 126/77
--- NOTE | 2022-02-28 18:35 | ED General ---
General Stated Complaint: MOUTH LAC,L CHEEK,L ARM NUMBNESS Source of Information: Patient Exam Limitations: No Limitations History of Present Illness Date Seen by Provider: Feb 28, 2022 Time Seen by Provider: 18:15 Initial Comments Patient is a 26-year-old female who presents with a canker sore to to her right lower lip and right elbow pain. Patient denies injury to her elbow but reports repetitive strain with planting. 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 No medications or therapies taken prior to arrival. Timing/Duration: 1 Hour Severity: Mild Modifying Factors: improves with Other Associated Systoms: Other Allergies and Home Medications Allergies Coded Allergies: diazepam (Unverified Adverse Reaction, Severe, stopped breathing, 01/05/22) Patient Home Medication List Home Medication List Reviewed: Yes Ibuprofen (Ibuprofen) 800 Mg Tablet, 800 MG PO Q8H PRN for PAIN Prescribed by: ALEKSANDR MCDONALD on 01/24/221730 Ibuprofen (Ibuprofen) 800 Mg Tablet, 800 MG PO Q8H PRN for PAIN Prescribed by: ALEKSANDR MCDONALD on 01/31/222013 Lamotrigine (Lamotrigine) 25 Mg Tablet, (Reported) Entered as Reported by: STEVE JAMES on 01/05/222139 Meclizine HCl (Meclizine HCl) 25 Mg Tablet, 25 MG PO Q12H PRN for VERTIGO Prescribed by: CATHI FELICIANO on 01/05/222130 Methocarbamol (Methocarbamol) 750 Mg Tablet, 1,500 MG PO Q8H PRN for neck pain/muscle spasm Prescribed by: ALEKSANDR MCDONALD on 01/24/221730 Metronidazole (Metronidazole) 500 Mg Tablet, 500 MG PO BID Prescribed by: ALEKSANDR MCDONALD on 11/07/212056 Ondansetron (Ondansetron Odt) 4 Mg Tab.rapdis, 4 MG PO Q6H PRN for NAUSEA/VOMITING Prescribed by: ALEKSANDR MCDONALD on 11/07/212056 Ondansetron (Ondansetron Odt) 4 Mg Tab.rapdis, 4 MG PO Q6H PRN for NAUSEA/VOMITING Prescribed by: ALEKSANDR MCDONALD on 02/11/22 1410 Pantoprazole Sodium (Pantoprazole Sodium) 40 Mg Tablet.dr, 40 MG PO DAILY Prescribed by: ALEKSANDR MCDONALD on 11/07/212056 Sulfamethoxazole/Trimethoprim (Bactrim Ds Tablet) 1 Each Tablet, 1 EACH PO BID Prescribed by: LISA DO on 10/31/21 1542 Sulfamethoxazole/Trimethoprim (Bactrim Ds Tablet) 1 Each Tablet, 1 EACH PO BID Prescribed by: ALEKSANDR MCDONALD on 02/11/22 1410 Review of Systems Review of Systems Constitutional: see HPI EENTM: see HPI Respiratory: see HPI Past Bsgabij-Ldlhie-Shuzwb Hx Patient Social History Tobacco Use?: No Immunizations Up To Date First/Initial COVID19 Vaccinat: non-vaccinated Second COVID19 Vaccination Joel: non-vaccinated Third COVID19 Vaccination Date: non-vaccinated Seasonal Allergies Seasonal Allergies: No Past Medical History Surgeries: No Respiratory: No Cardiac: No Neurological: No Genitourinary: No Gastrointestinal: No Musculoskeletal: No Endocrine: No HEENT: No Cancer: No Psychosocial: No Integumentary: No Physical Exam Vital Signs Capillary Refill : Height, Weight, BMI Height: 5'7.00" Weight: 147lbs. 0oz. 66.794495bd; 21.00 BMI Method:Stated General Appearance: No Apparent Distress, WD/WN Eyes: Bilateral Eye Normal Inspection HEENT: Other (Canker sore, right lower inner lip.) Cardiovascular: Regular Rate, Rhythm Extremity: Swelling (Right elbow swelling/tenderness, pain with range of motion, no erythema or warmth), Other Focused Exam Sepsis Stage: Ruled Out Progress/Results/Core Measures Suspected Sepsis SIRS Temperature: Pulse: Respiratory Rate: Blood Pressure / Mean: Results/Orders Vital Signs/I&O Capillary Refill : Departure Communication (Admissions) Patient with right elbow tendinitis canker sore. Ibuprofen supportive care recommended. PCP follow-up recommended. Return precautions reviewed. Impression Primary Impression: Tendinitis of right elbow Additional Impression: Canker sore Disposition: 01 HOME, SELF-CARE Condition: Stable Departure-Patient Inst. Decision time for Depature: 18:36 [place] [facility] [place] Primary Care Physician Patient Instructions: Tendinopathy (DC), Mouth Sores Add. Discharge Instructions: Take ibuprofen 600 mg, 3 times daily for elbow pain and continue to use canker sore topical medication and swish and spit peroxide nightly. Follow-up with your PCP in 2 to 3 days for reevaluation and further recommendations. Scripts Ibuprofen (Ibuprofen) 600 Mg Tablet 600 MG PO Q6H PRN for PAIN-MILD, #20 TAB Prov: ELDON GROVER DO 02/28/22 ELDON GROVER DO Feb 28, 2022 18:35
[2022-02-28] MEDS ORDERED: IBUP-1773 PO (18:38)
== END 2022-02-28 18:53 | disposition home or self-care (01) ==
LOC: EDUNIT# 18:18 → ER FS 18:20
DX: M77.8 Other enthesopathies, not elsewhere classified (principal); K12.0 Recurrent oral aphthae; Z28.310 Unvaccinated for COVID-19
CPT/HCPCS: 99281

== ENCOUNTER 2022-03-10 17:30 | Emergency (ER) | payer MEDICAID ==
[~2022-03-10] VITALS: Ht 172 cm; Wt 68.0 kg
[~2022-03-10 17:30] MED LIST changes: +IBUP-1773 PO
[2022-03-10 17:36] VITALS: BP 134/77
--- NOTE | 2022-03-10 17:38 | ED Upper Extremity ---
General Chief Complaint: Upper Extremity Stated Complaint: L ARM NUMBNESS History of Present Illness Date Seen by Provider: Mar 10, 2022 Time Seen by Provider: 17:38 Initial Comments 26-year-old female with PMH of possible intellectual disability, is here with complaints of left wrist pain which appears to be a chronic problem. Patient has come to the ER for this issue a few times in the past. She has tried using a sling as recommended prior, without much resolution of her pain. Today she is here with the same complaints of left wrist pain and swelling. 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 Patient also complains of associated tingling in her hands. Allergies and Home Medications Allergies Coded Allergies: diazepam (Unverified Adverse Reaction, Severe, stopped breathing, 01/05/22) Patient Home Medication List Home Medication List Reviewed: Yes Ibuprofen (Ibuprofen) 800 Mg Tablet, 800 MG PO Q8H PRN for PAIN Prescribed by: ALEKSANDR MCDONALD on 01/24/221730 Ibuprofen (Ibuprofen) 800 Mg Tablet, 800 MG PO Q8H PRN for PAIN Prescribed by: ALEKSANDR MCDONALD on 01/31/222013 Ibuprofen (Ibuprofen) 600 Mg Tablet, 600 MG PO Q6H PRN for PAIN-MILD Prescribed by: ELDON GROVER on 02/28/22 183 Lamotrigine (Lamotrigine) 25 Mg Tablet, (Reported) Entered as Reported by: STEVE JAMES on 01/05/222139 Meclizine HCl (Meclizine HCl) 25 Mg Tablet, 25 MG PO Q12H PRN for VERTIGO Prescribed by: CATHI FELICIANO on 01/05/22 213 Methocarbamol (Methocarbamol) 750 Mg Tablet, 1,500 MG PO Q8H PRN for neck pain/muscle spasm Prescribed by: ALEKSANDR MCDONALD on 01/24/22 173 Metronidazole (Metronidazole) 500 Mg Tablet, 500 MG PO BID Prescribed by: ALEKSANDR MCDONALD on 11/07/212056 Ondansetron (Ondansetron Odt) 4 Mg Tab.rapdis, 4 MG PO Q6H PRN for NAUSEA/VOMITING Prescribed by: ALEKSANDR MCDONALD on 11/07/212056 Ondansetron (Ondansetron Odt) 4 Mg Tab.rapdis, 4 MG PO Q6H PRN for NAUSEA/VOMITING Prescribed by: ALEKSANDR MCDONALD on 02/11/22 141 Pantoprazole Sodium (Pantoprazole Sodium) 40 Mg Tablet.dr, 40 MG PO DAILY Prescribed by: ALEKSANDR MCDONALD on 11/07/212056 Sulfamethoxazole/Trimethoprim (Bactrim Ds Tablet) 1 Each Tablet, 1 EACH PO BID Prescribed by: LISA DO on 10/31/21 154 Sulfamethoxazole/Trimethoprim (Bactrim Ds Tablet) 1 Each Tablet, 1 EACH PO BID Prescribed by: ALEKSANDR MCDONALD on 02/11/22 141 Review of Systems Constitutional: no symptoms reported EENTM: no symptoms reported Respiratory: no symptoms reported Cardiovascular: no symptoms reported Gastrointestinal: no symptoms reported Musculoskeletal: joint pain Skin: no symptoms reported Psychiatric/Neurological: No Symptoms Reported Past Blzdtvy-Tfjzpf-Iwnrtg Hx Patient Social History Tobacco Use?: No Use of E-Cig and/or Vaping dev: No Substance use?: No Alcohol Use?: No Pt feels they are or have been: Unable to obtain Immunizations Up To Date First/Initial COVID19 Vaccinat: non-vaccinated Second COVID19 Vaccination Joel: non-vaccinated Third COVID19 Vaccination Date: non-vaccinated Seasonal Allergies Seasonal Allergies: No Past Medical History Surgeries: No Respiratory: No Cardiac: No Neurological: No Genitourinary: No Gastrointestinal: No Musculoskeletal: No Endocrine: No HEENT: No Cancer: No Psychosocial: No Integumentary: No Physical Exam Vital Signs Vital Signs - First Documented 03/10/22 17:36 Temp 36.9 Pulse 104 Resp 18 B/P (MAP) 134/77 (96) Pulse Ox 95 O2 Delivery Room Air Capillary Refill : Height, Weight, BMI Height: 5'7.00" Weight: 147lbs. 0oz. 66.912801jj; 26.00 BMI Method:Stated General Appearance: WD/WN, no apparent distress HEENT: PERRL/EOMI Neck: full range of motion Cardiovascular: regular rate, rhythm Respiratory: chest non-tender, lungs clear Gastrointestinal: non tender, soft Back: normal inspection, no vertebral tenderness Shoulder: normal inspection, non-tender, no evidence of injury, normal ROM Elbow/Forearm: normal inspection, non-tender, no evidence of injury, normal ROM, Left Wrist: Yes no evidence of injury, Yes normal ROM, Yes limited ROM, Yes pain, Yes swelling Hand: normal inspection, non-tender, no evidence of injury, normal ROM, Left Neurologic/Tendon: normal sensation, normal motor functions, normal tendon functions Neurologic/Psychiatric: no motor/sensory deficits, alert, normal mood/affect, o riented x 3 Skin: normal color Progress/Results/Core Measures Results/Orders My Orders Orders - [facility] [place] MD Wrist 2 View Left (03/10/22 17:42) Vital Signs/I&O 03/10/22 17:36 Temp 36.9 Pulse 104 Resp 18 B/P (MAP) 134/77 (96) Pulse Ox 95 O2 Delivery Room Air Progress Progress Note : Progress Note LEFT CARPAL TUNNEL SYNDROME: - XR LEFT WRIST: no fracture - Ice, ibuprofen, carpal tunnel exercises - Cock up splint - Follow up with PCP in 10 days Diagnostic Imaging Diagonstic Imaging: Xray Plain Films/CT/US/NM/MRI: other Comments - Ice, ibuprofen, carpal tunnel exercises - Cock up splint - Follow up with PCP in 10 days Departure Impression Primary Impression: Carpal tunnel syndrome of left wrist Disposition: 01 HOME, SELF-CARE Condition: Stable Departure-Patient Inst. [place]: [facility] [place] ([place]/Family) Primary Care Physician Patient Instructions: Carpal Tunnel Exercises, Carpal Tunnel Syndrome (DC) Add. Discharge Instructions: - Ice, ibuprofen, carpal tunnel exercises - Wrist splint - Follow up with PCP in 10 days All discharge instructions reviewed with patient and/or family. Voiced understanding. Work/School Note: Work Release Form Date Seen in the Emergency Department: Mar 10, 2022 Return to Work: Mar 12, 2022 Other Restrictions Listed Below: No heavy lifting, and must wear wrist splint to work NOR[facility] MAN[place] MD Mar 10, 2022 17:38
--- NOTE | 2022-03-10 18:04 | Diagnostic Imaging Report ---
INDICATION: Wrist pain, injury. COMPARISON: 10/10/2021. TECHNIQUE: Two radiographs of the left wrist dated March 10, 2022. FINDINGS: No acute fracture or dislocation. No destructive osseous process. Carpal alignment is well maintained. Scapholunate intervals within normal limits. No suspicious radiopaque foreign body. IMPRESSION: No acute osseous abnormality. Dictated by: Dictated on workstation # [id number]
== END 2022-03-10 18:20 | disposition home or self-care (01) ==
LOC: EDUNIT# 17:30 → ER FS 17:31
DX: G56.02 Carpal tunnel syndrome, left upper limb (principal); Z28.310 Unvaccinated for COVID-19
CPT/HCPCS: 73100

== ENCOUNTER 2022-04-06 10:57 | Emergency (ER) | payer MEDICAID ==
[~2022-04-06] VITALS: Ht 172.7 cm; Wt 68.0 kg
[2022-04-06 11:06] VITALS: BP 136/82
--- NOTE | 2022-04-06 11:25 | ED Upper Extremity ---
General Chief Complaint: Upper Extremity Stated Complaint: LT WRIST INJ Nursing Triage Note: Patient reports she forgot to take her meclizine two days ago, became dizzy and fell, landing on her left wrist. She reports continued pain in her left wrist, states she is unable to move it due to pain. Source: patient Exam Limitations: no limitations History of Present Illness Date Seen by Provider: Apr 06, 2022 Time Seen by Provider: 11:10 Initial Comments 26-year-old right-handed female patient with history of dizziness states she felt dizzy 2 days ago and had a fall and landed on hyper flexed left hand and since then unable to extend her left wrist and hand and complaining of pain as a severe pain and rated her pain 8/10. Patient states she took Tylenol this morning without improvement of her pain. Patient denies other injuries. Complaining of numbness of left finger. Allergies and Home Medications Allergies Coded Allergies: diazepam (Unverified Adverse Reaction, Severe, stopped breathing, 01/05/22) Patient Home Medication List Home Medication List Reviewed: Yes Ibuprofen (Ibuprofen) 800 Mg Tablet, 800 MG PO Q8H PRN for PAIN Prescribed by: ALEKSANDR MCDONALD on 01/24/221730 Ibuprofen (Ibuprofen) 800 Mg Tablet, 800 MG PO Q8H PRN for PAIN Prescribed by: ALEKSANDR MCDONALD on 01/31/222013 Ibuprofen (Ibuprofen) 600 Mg Tablet, 600 MG PO Q6H PRN for PAIN-MILD Prescribed by: ELDON GROVER on 02/28/22 183 Lamotrigine (Lamotrigine) 25 Mg Tablet, (Reported) Entered as Reported by: STEVE JAMES on 01/05/222139 Meclizine HCl (Meclizine HCl) 25 Mg Tablet, 25 MG PO Q12H PRN for VERTIGO Prescribed by: CATHI FELICIANO on 01/05/22 213 Methocarbamol (Methocarbamol) 750 Mg Tablet, 1,500 MG PO Q8H PRN for neck pain/muscle spasm Prescribed by: ALEKSANDR MCDONALD on 01/24/22 173 Metronidazole (Metronidazole) 500 Mg Tablet, 500 MG PO BID Prescribed by: ALEKSANDR MCDONALD on 11/07/212056 Naproxen (Naprosyn) 500 Mg Tablet, 500 MG PO BID PRN for pain Prescribed by: Estela hutchison on 04/06/22 1200 Ondansetron (Ondansetron Odt) 4 Mg Tab.rapdis, 4 MG PO Q6H PRN for NAUSEA/VOMITING Prescribed by: ALEKSANDR MCDONALD on 11/07/212056 Ondansetron (Ondansetron Odt) 4 Mg Tab.rapdis, 4 MG PO Q6H PRN for NAUSEA/VOMIT ING Prescribed by: ALEKSANDR MCDONALD on 02/11/22 141 Pantoprazole Sodium (Pantoprazole Sodium) 40 Mg Tablet.dr, 40 MG PO DAILY Prescribed by: ALEKSANDR MCDONALD on 11/07/212056 Sulfamethoxazole/Trimethoprim (Bactrim Ds Tablet) 1 Each Tablet, 1 EACH PO BID Prescribed by: LISA DO on 10/31/211541 Sulfamethoxazole/Trimethoprim (Bactrim Ds Tablet) 1 Each Tablet, 1 EACH PO BID Prescribed by: ALEKSANDR MCDONALD on 02/11/22 141 Review of Systems Constitutional: no symptoms reported EENTM: no symptoms reported Respiratory: no symptoms reported Cardiovascular: no symptoms reported Gastrointestinal: no symptoms reported Genitourinary: no symptoms reported : No Musculoskeletal: joint pain Skin: no symptoms reported Psychiatric/Neurological: See HPI All Other Systems Reviewed Negative Unless Noted: Yes Past Bjryvyv-Ocgvli-Tedevx Hx Patient Social History Tobacco Use?: No Substance use?: No Alcohol Use?: No Pt feels they are or have been: No Immunizations Up To Date First/Initial COVID19 Vaccinat: non-vaccinated Second COVID19 Vaccination Joel: non-vaccinated Third COVID19 Vaccination Date: non-vaccinated Seasonal Allergies Seasonal Allergies: No Past Medical History Surgeries: No Respiratory: No Cardiac: No Neurological: No Last Menstrual Period: Mar 30, 2022 Genitourinary: No Gastrointestinal: No Musculoskeletal: No Endocrine: No HEENT: No Cancer: No Psychosocial: No Integumentary: No Physical Exam Vital Signs Vital Signs - First Documented 04/06/22 11:06 Temp 36.0 Pulse 79 Resp 18 B/P (MAP) 136/82 (100) Pulse Ox 96 O2 Delivery Room Air Capillary Refill : Less Than 3 Seconds Height, Weight, BMI Height: 5'7.00" Weight: 147lbs. 0oz. 66.025685qx; 22.00 BMI Method:Stated General Appearance: WD/WN HEENT: PERRL/EOMI, normal ENT inspection Neck: non-tender Cardiovascular: normal peripheral pulses, regular rate, rhythm, no edema Respiratory: chest non-tender, lungs clear, normal breath sounds, no respiratory distress, no accessory muscle use Back: normal inspection Shoulder: normal inspection Elbow/Forearm: normal inspection Neurologic/Tendon: normal sensation Skin: normal color Holding left wrist in hyperflexion, able to isolate her wrist and moving her finger resolved the paresthesias, no deformity or tenderness Progress/Results/Core Measures Results/Orders My Orders Orders - ESTELA HUTCHISON MD Wrist 3 View Left (04/06/22 11:16) Vital Signs/I&O 04/06/22 11:06 Temp 36.0 Pulse 79 Resp 18 B/P (MAP) 136/82 (100) Pulse Ox 96 O2 Delivery Room Air Blood Pressure Mean: 100 Progress Progress Note : Progress Note Evaluation of patient in ER showed 26-year-old female patient with complaining of a fall because of chronic dizziness and landed on hyperflexed left wrist 2 days ago and since then unable to extend her wrist. Patient holding her left wrist in hyperflexion , able to extend and straight her hand, no paresthesia or focal neurodeficit noted. Perry wrap applied for prevention of hyperflexion. X- ray did not show problem. Patient states she is allergic to ibuprofen and it causes stop breathing. Therefore patient advised to apply ice and take ghaj-fvo-[id number] Tylenol. Diagnostic Imaging Plain Films/CT/US/NM/MRI: other (Left wrist) Comments Left wrist x-ray interpreted by radiologist and reviewed by me and showed: NAME: WARNER HALE [facility] REC#: [id number] PT STATUS: REG ER : 1995 PHYSICIAN: ESTELA HUTCHISON MD ADMIT DATE: 04/06/22/ER FS Draft Date of Exam:04/06/22 WRIST 3 VIEW LEFT EXAMINATION: Left wrist at 1132 hours. INDICATION: Injury, wrist pain. Three views were obtained. FINDINGS: There is no fracture, dislocation, or acute bony abnormality evident. There is mild narrowing of the radiocarpal joint. This finding is stable when compared to the prior exam of 03/10/2022. The soft tissues are unremarkable. IMPRESSION: There is no evidence for an acute bony abnormality. Dictated on workstation # [id number] Dict: 04/06/22 1147 Trans: 04/06/22 1153 [id number] Interpreted by: ANTONIO HERZOG MD Electronically signed by: Departure Impression Primary Impression: Left wrist injury Qualified Codes: S69.92XA - Unspecified injury of left wrist, hand and finger(s), initial encounter Disposition: HOME, SELF-CARE Condition: Improved Departure-Patient Inst. Decision time for Depature: 11:57 Referrals: SHERITA HAWLEY APRN (PCP) Primary Care Physician [facility]/[place] (Family) Primary Care Physician Patient Instructions: Common Wrist Injuries ED Add. Discharge Instructions: Do not bend your left wrist Apply ice on your left wrist Follow-up with your primary care physician or return to ER as needed Take bnix-lvz-ogpcbus Tylenol as needed for pain All discharge instructions reviewed with patient and/or family. Voiced understanding. ESTELA HUTCHISON MD Apr 06, 2022 11:25
--- NOTE | 2022-04-06 11:53 | Diagnostic Imaging Report ---
EXAMINATION: Left wrist at 1132 hours. INDICATION: Injury, wrist pain. Three views were obtained. FINDINGS: There is no fracture, dislocation, or acute bony abnormality evident. There is mild narrowing of the radiocarpal joint. This finding is stable when compared to the prior exam of 03/10/2022. The soft tissues are unremarkable. IMPRESSION: There is no evidence for an acute bony abnormality. Dictated by: Dictated on workstation # [id number]
[2022-04-06] MEDS ORDERED: NAPR-1071 PO (12:00)
== END 2022-04-06 11:58 | disposition home or self-care (01) ==
LOC: EDUNIT# 10:57 → ER FS 10:59
DX: S69.92XA Unspecified injury of left wrist, hand and finger(s), initial encounter (principal); R42 Dizziness and giddiness; T45.0X6A Underdosing of antiallergic and antiemetic drugs, initial encounter; Z91.14 Patient's other noncompliance with medication regimen; Z79.899 Other long term (current) drug therapy; Z28.310 Unvaccinated for COVID-19; W19.XXXA Unspecified fall, initial encounter
CPT/HCPCS: 73110

== ENCOUNTER 2022-04-29 17:51 | Emergency (ER) | payer MEDICAID ==
[~2022-04-29] VITALS: Ht 172.7 cm; Wt 70.3 kg
[~2022-04-29 17:51] MED LIST changes: +NAPR-1071 PO
[2022-04-29 17:57] VITALS: BP 122/60
[2022-04-29] MEDS ORDERED: IBUPROFEN 600 MG (MOTRIN) TAB PO ONE (18:45)
--- NOTE | 2022-04-29 18:57 | Diagnostic Imaging Report ---
INDICATION: Shortness of breath and chest pain. TECHNIQUE: Two view chest 6:52 PM. CORRELATION STUDY: None. FINDINGS: The heart size, mediastinal configuration and pulmonary vasculature are within normal limits. The lungs are clear with no consolidating infiltrate. There is no significant pleural effusion or pneumothorax. Minimal scoliotic curvature of thoracolumbar spine. IMPRESSION: Negative for acute abnormality of the chest. Dictated by: Dictated on workstation # [id number]
--- NOTE | 2022-04-29 19:06 | ED Chest Pain ---
General Chief Complaint: Chest Pain Stated Complaint: CHEST PAIN; SOB Nursing Triage Note: Patient reports she began having shortness of breath, a headache, chest pain and feeling shaky this morning. She reports she took tylenol at 3:30 pm today without relief. Source: patient Exam Limitations: no limitations History of Present Illness Date Seen by Provider: Apr 29, 2022 Time Seen by Provider: 18:28 Initial Comments 26-year-old female patient without history of medical problems complaining of left-sided chest pain as a constant pain without radiation that gradually getting worse. Patient rated her pain for when it was a started and 9 at arrival to ER. Patient states the pain getting worse with taking deep breaths and movement. Patient complaining of shortness of breath without cough that did not get better with taking albuterol inhaler. Patient also complaining of headache and shaky and nausea. Patient denies exposure to COVID. Patient denies , vomiting, diarrhea and constipation, urinary symptoms, history of chest pain. Allergies and Home Medications Allergies Coded Allergies: diazepam (Unverified Adverse Reaction, Severe, stopped breathing, 01/05/22) Patient Home Medication List Home Medication List Reviewed: Yes Ibuprofen (Ibuprofen) 800 Mg Tablet, 800 MG PO Q8H PRN for PAIN Prescribed by: ALEKSANDR MCDONALD on 01/24/221730 Ibuprofen (Ibuprofen) 800 Mg Tablet, 800 MG PO Q8H PRN for PAIN Prescribed by: ALEKSANDR MCDONALD on 01/31/222013 Ibuprofen (Ibuprofen) 600 Mg Tablet, 600 MG PO Q6H PRN for PAIN-MILD Prescribed by: ELDON GROVER on 02/28/22 183 Ibuprofen (Ibuprofen) 600 Mg Tablet, 600 MG PO Q8H PRN for PAIN-MILD Prescribed by: Estela hutchison on 04/29/22 191 Lamotrigine (Lamotrigine) 25 Mg Tablet, (Reported) Entered as Reported by: STEVE JAMES on 01/05/222139 Meclizine HCl (Meclizine HCl) 25 Mg Tablet, 25 MG PO Q12H PRN for VERTIGO Prescribed by: CATHI FELICIANO on 01/05/222130 Methocarbamol (Methocarbamol) 750 Mg Tablet, 1,500 MG PO Q8H PRN for neck pain/muscle spasm Prescribed by: ALEKSANDR MCDONALD on 01/24/22 1731 Metronidazole (Metronidazole) 500 Mg Tablet, 500 MG PO BID Prescribed by: ALEKSANDR GARDNERYART on 11/07/212056 Ondansetron (Ondansetron Odt) 4 Mg Tab.rapdis, 4 MG PO Q6H PRN for NAUSEA/VOMITING Prescribed by: ALEKSANDR GARDNERYART on 11/07/212056 Ondansetron (Ondansetron Odt) 4 Mg Tab.rapdis, 4 MG PO Q6H PRN for NAUSEA/VOMITING Prescribed by: ALEKSANDR LEERT on 02/11/22 141 Ondansetron (Ondansetron Odt) 4 Mg Tab.rapdis, 4 MG PO TID PRN for NAUSEA-1ST LINE Prescribed by: Estela hutchison on 04/29/22 191 Pantoprazole Sodium (Pantoprazole Sodium) 40 Mg Tablet.dr, 40 MG PO DAILY Prescribed by: ALEKSANDR LEERT on 11/07/212056 Sulfamethoxazole/Trimethoprim (Bactrim Ds Tablet) 1 Each Tablet, 1 EACH PO BID Prescribed by: LISA DO on 10/31/21 1542 Sulfamethoxazole/Trimethoprim (Bactrim Ds Tablet) 1 Each Tablet, 1 EACH PO BID Prescribed by: ALEKSANDR LEERT on 02/11/22 141 Review of Systems Review of Systems Constitutional: see HPI EENTM: No Symptoms Reported Respiratory: See HPI Cardiovascular: See HPI Gastrointestinal: See HPI Genitourinary: No Symptoms Reported Musculoskeletal: no symptoms reported Skin: no symptoms reported Psychiatric/Neurological: No Symptoms Reported Endocrine: No Symptoms Reported Hematologic/Lymphatic: No Symptoms Reported All Other Systems Reviewed Negative Unless Noted: Yes Past Nltieus-Abybkv-Aceskt Hx Patient Social History Tobacco Use?: No Substance use?: No Alcohol Use?: No Pt feels they are or have been: No Immunizations Up To Date First/Initial COVID19 Vaccinat: non-vaccinated Second COVID19 Vaccination Joel: non-vaccinated Third COVID19 Vaccination Date: non-vaccinated Seasonal Allergies Seasonal Allergies: No Past Medical History Surgeries: No Respiratory: No Cardiac: No Neurological: No Genitourinary: No Gastrointestinal: No Musculoskeletal: No Endocrine: No HEENT: No Cancer: No Psychosocial: No Integumentary: No Physical Exam Vital Signs Vital Signs - First Documented 04/29/22 17:57 Temp 36.7 Pulse 79 Resp 18 B/P (MAP) 122/60 (80) Pulse Ox 99 O2 Delivery Room Air Capillary Refill : Less Than 3 Seconds Height, Weight, BMI Height: 5'7.00" Weight: 147lbs. 0oz. 66.045054ak; 23.00 BMI Method:Stated General Appearance: No Apparent Distress, WD/WN HEENT: PERRL/EOMI Neck: Full Range of Motion, Normal Inspection Respiratory: Lungs Clear, Normal Breath Sounds, No Accessory Muscle Use, No Respiratory Distress, Other (Reproducible left-sided chest pain) Cardiovascular: Regular Rate, Rhythm, No Edema, No Gallop Gastrointestinal: Normal Bowel Sounds, No Organomegaly Extremity: Normal Capillary Refill, Normal Inspection Neurologic/Psychiatric: Alert, Oriented x3, No Motor/Sensory Deficits Skin: Normal Color, Warm/Dry Lymphatic: No Adenopathy Progress/Results/Core Measures Results/Orders My Orders Orders - ESTELA HUTCHISON MD Chest Pa/Lat (2 View) (04/29/22 18:39) Ibuprofen Tablet (Motrin Tablet) (04/29/22 18:45) Medications Given in ED Current Medications Medications Dose Ordered Sig/Thalia Route Start Time Stop Time Status Last Admin Dose Admin Ibuprofen 600 mg ONCE ONCE PO 04/29/22 18:45 04/29/22 18:46 DC 04/29/22 18:54 600 MG Vital Signs/I&O 04/29/22 17:57 Temp 36.7 Pulse 79 Resp 18 B/P (MAP) 122/60 (80) Pulse Ox 99 O2 Delivery Room Air Blood Pressure Mean: 80 Progress Progress Note : Progress Note Valuation of patient in ER showed 26-year-old female patient with history of frequent emergency room visits complaining of left-sided chest pain that getting worse with movement and taking deep breath since this morning associated with shortness of breath, nausea, headache, shaking. Patient had temperature of 99.1 in ER. EKG and chest x-ray did not show acute finding. Patient refused COVID test and stated she had a negative COVID test 2 weeks ago and does not want to have anymore because she knows she does not have COVID. Patient treated with ibuprofen in ER and felt better and prescription for Zofran and ibuprofen was given and advised to follow-up with primary care physician or return to ER as needed. Initial ECG Impression Date: Apr 29, 2022 Initial ECG Impression Time: 17:59 Initial ECG Intervals EKG interpreted by me. EKG at 1759 showed normal sinus rhythm at rate of 72, normal P axis, KS interval of 119 and QT interval of 381, no acute ST and T wave elevation. Diagnostic Imaging Diagonstic Imaging: Xray (Chest) Comments 2 view chest x-ray interpreted by me and did not show infiltration. Departure Impression Primary Impression: Musculoskeletal chest pain Disposition: HOME, SELF-CARE Condition: Stable Departure-Patient Inst. Decision time for Depature: 19:07 Referrals: SHERITA HAWLEY APRN (PCP) Primary Care Physician [facility]/[place] (Family) Primary Care Physician Patient Instructions: Chest Pain That Is Not Caused by the Heart (DC) Add. Discharge Instructions: Drink plenty of liquid Follow-up with your primary care physician or return to ER as needed All discharge instructions reviewed with patient and/or family. Voiced u nderstanding. Scripts Ibuprofen (Ibuprofen) 600 Mg Tablet 600 MG PO Q8H PRN for PAIN-MILD, #20 TAB Prov: ESTELA HUTCHISON MD 04/29/22 Ondansetron (Ondansetron Odt) 4 Mg Tab.rapdis 4 MG PO TID PRN for NAUSEA-1ST LINE, #10 TAB Prov: ESTELA HUTCHISON MD 04/29/22 ESTELA HUTCHISON MD Apr 29, 2022 19:06
[2022-04-29] MEDS ORDERED: IBUP-1773 PO (19:11)
[2022-04-29] MEDS ORDERED: ONDA4TAB11 PO (19:11)
== END 2022-04-29 19:17 | disposition home or self-care (01) ==
LOC: EDUNIT# 17:51 → ER FS 17:52
DX: R07.89 Other chest pain (principal); R11.0 Nausea; R51.9 Headache, unspecified; Z28.310 Unvaccinated for COVID-19
CPT/HCPCS: 71046; 99285

== ENCOUNTER 2022-06-08 17:57 | Emergency (ER) | payer MEDICAID ==
[~2022-06-08] VITALS: Ht 170 cm; Wt 80.0 kg
--- NOTE | 2022-06-08 18:01 | ED General ---
General Chief Complaint: General Problems/Pain Stated Complaint: FELL,R SIDE CHEEK PAIN History of Present Illness Date Seen by Provider: Jun 08, 2022 Time Seen by Provider: 18:01 Initial Comments 26-year-old female is here with complaints of a fall from a ladder, patient was on the fifth rung of the ladder when she fell back and hit the right side of her cheek on the ground. Patient states that she has pain in the right side and has difficulty opening her mouth all the way. Denies LOC at time of incident, nausea and vomiting, dizziness, blurry vision. Allergies and Home Medications Allergies Coded Allergies: diazepam (Unverified Adverse Reaction, Severe, stopped breathing, 01/05/22) Patient Home Medication List Home Medication List Reviewed: Yes Ibuprofen (Ibuprofen) 800 Mg Tablet, 800 MG PO Q8H PRN for PAIN Prescribed by: ALEKSANDR MCDONALD on 01/24/221730 Ibuprofen (Ibuprofen) 800 Mg Tablet, 800 MG PO Q8H PRN for PAIN Prescribed by: ALEKSANDR MCDONALD on 01/31/222013 Ibuprofen (Ibuprofen) 600 Mg Tablet, 600 MG PO Q6H PRN for PAIN-MILD Prescribed by: ELDON GROVER on 02/28/22 183 Ibuprofen (Ibuprofen) 600 Mg Tablet, 600 MG PO Q8H PRN for PAIN-MILD Prescribed by: Estela anton on 04/29/221910 Lamotrigine (Lamotrigine) 25 Mg Tablet, (Reported) Entered as Reported by: STEVE JAMES on 01/05/222139 Meclizine HCl (Meclizine HCl) 25 Mg Tablet, 25 MG PO Q12H PRN for VERTIGO Prescribed by: CATHI FELICIANO on 01/05/222130 Methocarbamol (Methocarbamol) 750 Mg Tablet, 1,500 MG PO Q8H PRN for neck pain/muscle spasm Prescribed by: ALEKSANDR MCDONALD on 01/24/221730 Metronidazole (Metronidazole) 500 Mg Tablet, 500 MG PO BID Prescribed by: ALEKSANDR MCDONALD on 11/07/212056 Ondansetron (Ondansetron Odt) 4 Mg Tab.rapdis, 4 MG PO Q6H PRN for NAUSEA/VOMITING Prescribed by: ALEKSANDR MCDONALD on 11/07/212056 Ondansetron (Ondansetron Odt) 4 Mg Tab.rapdis, 4 MG PO Q6H PRN for NAUSEA/VO MITING Prescribed by: ALEKSANDR MCDONALD on 02/11/22 141 Ondansetron (Ondansetron Odt) 4 Mg Tab.rapdis, 4 MG PO TID PRN for NAUSEA-1ST LINE Prescribed by: Estela anton on 04/29/22 191 Pantoprazole Sodium (Pantoprazole Sodium) 40 Mg Tablet.dr, 40 MG PO DAILY Prescribed by: ALEKSANDR MCDONALD on 11/07/212056 Sulfamethoxazole/Trimethoprim (Bactrim Ds Tablet) 1 Each Tablet, 1 EACH PO BID Prescribed by: LISA DO on 10/31/21 154 Sulfamethoxazole/Trimethoprim (Bactrim Ds Tablet) 1 Each Tablet, 1 EACH PO BID Prescribed by: ALEKSANDR MCDONALD on 02/11/22 141 Review of Systems Review of Systems Constitutional: no symptoms reported EENTM: other (right cheek pain) Respiratory: no symptoms reported Cardiovascular: no symptoms reported Gastrointestinal: no symptoms reported Genitourinary: no symptoms reported Musculoskeletal: no symptoms reported Skin: no symptoms reported Psychiatric/Neurological: No Symptoms Reported Hematologic/Lymphatic: No Symptoms Reported Immunological/Allergic: no symptoms reported Past Jyrgumb-Htcfqh-Reahic Hx Immunizations Up To Date First/Initial COVID19 Vaccinat: non-vaccinated Second COVID19 Vaccination Joel: non-vaccinated Third COVID19 Vaccination Date: non-vaccinated Seasonal Allergies Seasonal Allergies: No Past Medical History Surgeries: No Respiratory: No Cardiac: No Neurological: No Genitourinary: No Gastrointestinal: No Musculoskeletal: No Endocrine: No HEENT: No Cancer: No Psychosocial: No Integumentary: No Physical Exam Vital Signs Vital Signs - First Documented 06/08/22 18:03 Temp 36.4 Pulse 73 Resp 18 B/P (MAP) 136/74 (94) Pulse Ox 97 O2 Delivery Room Air Capillary Refill : Height, Weight, BMI Height: 5'7.00" Weight: 147lbs. 0oz. 66.372021gd; 23.00 BMI Method:Stated General Appearance: No Apparent Distress, WD/WN HEENT: PERRL/EOMI, Pharynx Normal, Other (right side cheek, mild swelling and tender to toich along TMJ and maxilla on right. Pt is able to open her mouth wide during exam. ) Neck: Full Range of Motion, Normal Inspection, Non Tender, Supple Back: Normal Inspection, No Vertebral Tenderness Extremity: Normal Range of Motion Neurologic/Psychiatric: Alert, Oriented x3, No Motor/Sensory Deficits, Normal Mood/Affect Skin: Normal Color Progress/Results/Core Measures Suspected Sepsis SIRS Temperature: Pulse: Respiratory Rate: Blood Pressure / Mean: Results/Orders My Orders Orders - NORTH MANLEY MD Ibuprofen Tablet (Motrin Tablet) (06/08/22 18:30) Ct Maxillofacial Wo (06/08/22 18:24) Medications Given in ED Current Medications Medications Dose Ordered Sig/Thalia Route Start Time Stop Time Status Last Admin Dose Admin Ibuprofen 600 mg ONCE ONCE PO 06/08/22 18:30 06/08/22 18:31 DC 06/08/22 18:25 600 MG Vital Signs/I&O 06/08/22 18:03 Temp 36.4 Pulse 73 Resp 18 B/P (MAP) 136/74 (94) Pulse Ox 97 O2 Delivery Room Air Capillary Refill : Progress Note : Progress Note 1. RIGHT CHEEK PAIN s/p FALL FROM LADDER: - CT MAXILLOFACIAL: unremarkable - Ibuprofen 600mg STAT - Ice/ NSAID prn - FOllow up with PCP in 7 days -The patient was seen in the ED, and treated appropriately to presentation at a specific point in time. Patient is informed that there is a possibility that d isease and illness can evolve and change in acuity rapidly or slowly after patient is discharged from the ER. Precautionary advice given to the patient for immediate return to ER if symptoms worsen or do not resolve, and to seek emergency care sooner rather than later. Pt also advised on the importance of PCP follow up and compliance with management and follow up plan with PCP and/or specialist, as this is part of the management plan. Pt verbally expressed understanding. Diagnostic Imaging Diagonstic Imaging: CT Plain Films/CT/US/NM/MRI: facial bones Comments [facility] [place], [place] NAME: WARNER HALE Salome [facility] REC#: [id number] PT STATUS: REG ER : 1995 PHYSICIAN: NORTH MANLEY MD ADMIT DATE: 06/08/22/ER FS Signed Date of Exam:06/08/22 CT MAXILLOFACIAL WO INDICATION: Fall with right facial injury. TECHNIQUE: Multiple contiguous axial images were obtained through the facial bones without the use of intravenous contrast. Auto Exposure Controls were utilized during the CT exam to meet ALARA standards for radiation dose reduction. COMPARISON: There is no prior CT maxillofacial for comparison. FINDINGS: There was no evidence of facial bone fracture. The visualized paranasal sinuses are well aerated and without fluid levels. Orbital contents appear unremarkable. There is chronic deviation of the middle septum toward the right side with nasal septal spur. Note is made of asymmetric dilatation of the right lateral ventricle, this has been noted on previous CT head studies. IMPRESSION: No evidence of facial bone fracture or acute abnormality. Dictated by: Dictated on workstation # [id number] Dict: 06/08/225 Trans: 06/08/221917 PJE [id number] Interpreted by: LEANA GUZMAN MD Electronically signed by: LEANA GUZMAN MD 06/08/221917 Departure Impression Primary Impression: Fall Qualified Codes: W19.XXXA - Unspecified fall, initial encounter Additional Impression: Contusion, cheek Qualified Codes: S00.83XA - Contusion of other part of head, initial encounter Disposition: HOME, SELF-CARE Condition: Stable Departure-Patient Inst. Referrals: SHERITA HAWLEY APRN (PCP) Primary Care Physician [facility] (Family) Primary Care Physician Patient Instructions: Minor Contusion ED, Preventing Falls ED Add. Discharge Instructions: - Ice/ Ibuprofen prn pain - Follow up with PCP in 7 days All discharge instructions reviewed with patient and/or family. Voiced understanding. Work/School Note: Work Release Form Date Seen in the Emergency Department: Jun 08, 2022 Return to Work: Jun 09, 2022 Restrictions: No Restrictions NORTH MANLEY MD Jun 08, 2022 18:01
[2022-06-08 18:03] VITALS: BP 136/74
[2022-06-08] MEDS ORDERED: IBUPROFEN 600 MG (MOTRIN) TAB PO ONE (18:30)
--- NOTE | 2022-06-08 19:01 | Diagnostic Imaging Report ---
INDICATION: Fall with right facial injury. TECHNIQUE: Multiple contiguous axial images were obtained through the facial bones without the use of intravenous contrast. Auto Exposure Controls were utilized during the CT exam to meet ALARA standards for radiation dose reduction. COMPARISON: There is no prior CT maxillofacial for comparison. FINDINGS: There was no evidence of facial bone fracture. The visualized paranasal sinuses are well aerated and without fluid levels. Orbital contents appear unremarkable. There is chronic deviation of the middle septum toward the right side with nasal septal spur. Note is made of asymmetric dilatation of the right lateral ventricle, this has been noted on previous CT head studies. IMPRESSION: No evidence of facial bone fracture or acute abnormality. Dictated by: Dictated on workstation # [id number]
== END 2022-06-08 19:40 | disposition home or self-care (01) ==
LOC: EDUNIT# 17:57 → ER FS 17:58
DX: S00.83XA Contusion of other part of head, initial encounter (principal); Z28.310 Unvaccinated for COVID-19; W11.XXXA Fall on and from ladder, initial encounter; W22.8XXA Striking against or struck by other objects, initial encounter
CPT/HCPCS: 70486

== ENCOUNTER 2022-08-05 16:01 | Emergency (ER) | payer MEDICAID ==
[~2022-08-05] VITALS: Ht 170.2 cm; Wt 79.3 kg
[2022-08-05 16:10] VITALS: BP 130/66
--- NOTE | 2022-08-05 16:25 | ED EENT ---
History of Present Illness General Chief Complaint: Oral/Throat Problems Stated Complaint: SORE THROAT Nursing Triage Note: Patient reports she has had a sore throat for 3 days. She states she was tested for strep throat at the [facility] and tested negative. Source: patient Exam Limitations: no limitations History of Present Illness Date Seen by Provider: Aug 05, 2022 Time Seen by Provider: 16:10 Initial Comments Patient is a 26-year-old female who presents with sore throat for 3 days. Patient was evaluated at urgent care this morning had an strep COVID and flu Maria Guadalupe swabs performed which were negative. She was instructed to continue Tylenol ibuprofen which she states is not helping. She denies dysphonia, drooling trismus and hoarseness. She is requesting an antibiotic for treatment of her sore throat. No fever chills or sweats. No neck pain, cough or chest pain. No other acute symptoms or complaint Timing/Duration: gradual Severity: moderate Location: other Prearrival Treatment: other Modifying Factors: Improves With Other Associated Symptoms: other Allergies and Home Medications Allergies Coded Allergies: diazepam (Unverified Adverse Reaction, Severe, stopped breathing, 01/05/22) Patient Home Medication List Home Medication List Reviewed: Yes Ibuprofen (Ibuprofen) 800 Mg Tablet, 800 MG PO Q8H PRN for PAIN Prescribed by: ALEKSANDR MCDONALD on 01/24/22 173 Ibuprofen (Ibuprofen) 800 Mg Tablet, 800 MG PO Q8H PRN for PAIN Prescribed by: ALEKSANDR MCDONALD on 01/31/222013 Ibuprofen (Ibuprofen) 600 Mg Tablet, 600 MG PO Q6H PRN for PAIN-MILD Prescribed by: ELDON GROVER on 02/28/22 183 Ibuprofen (Ibuprofen) 600 Mg Tablet, 600 MG PO Q8H PRN for PAIN-MILD Prescribed by: Estela anton on 04/29/22 191 Lamotrigine (Lamotrigine) 25 Mg Tablet, (Reported) Entered as Reported by: STEVE JAMES on 01/05/222139 Meclizine HCl (Meclizine HCl) 25 Mg Tablet, 25 MG PO Q12H PRN for VERTIGO Prescribed by: CATHI FELICIANO on 01/05/22 213 Methocarbamol (Methocarbamol) 750 Mg Tablet, 1,500 MG PO Q8H PRN for neck pain/muscle spasm Prescribed by: ALEKSANDR MCDONALD on 01/24/22 1731 Metronidazole (Metronidazole) 500 Mg Tablet, 500 MG PO BID Prescribed by: ALEKSANDR MCDONALD on 11/07/212056 Ondansetron (Ondansetron Odt) 4 Mg Tab.rapdis, 4 MG PO Q6H PRN for NAUSEA/VOMITING Prescribed by: ALEKSANDR MCDONALD on 11/07/212056 Ondansetron (Ondansetron Odt) 4 Mg Tab.rapdis, 4 MG PO Q6H PRN for NAUSEA/VOMITING Prescribed by: ALEKSANDR MCDONALD on 02/11/22 141 Ondansetron (Ondansetron Odt) 4 Mg Tab.rapdis, 4 MG PO TID PRN for NAUSEA-1ST LINE Prescribed by: Estela anton on 04/29/22 191 Pantoprazole Sodium (Pantoprazole Sodium) 40 Mg Tablet.dr, 40 MG PO DAILY Prescribed by: ALEKASNDR MCDONALD on 11/07/212056 Sulfamethoxazole/Trimethoprim (Bactrim Ds Tablet) 1 Each Tablet, 1 EACH PO BID Prescribed by: LISA DO on 10/31/21 154 Sulfamethoxazole/Trimethoprim (Bactrim Ds Tablet) 1 Each Tablet, 1 EACH PO BID Prescribed by: ALEKSANDR MCDONALD on 02/11/22 141 Review of Systems Review of Systems Constitutional: see HPI Eyes: See HPI Ears: See HPI Nose: see HPI Mouth: see HPI Throat: see HPI Respiratory: see HPI Cardiovascular: see HPI Gastrointestinal: see HPI Musculoskeletal: see HPI Skin: see HPI Neurological: See HPI Hematologic/Lymphatic: See HPI Immunological/Allergic: see HPI All Other Systems Reviewed Negative Unless Noted: No Past Hgkzljb-Iwtqsa-Fykcrf Hx Patient Social History Tobacco Use?: No Substance use?: No Alcohol Use?: No Pt feels they are or have been: No Immunizations Up To Date First/Initial COVID19 Vaccinat: non-vaccinated Second COVID19 Vaccination Joel: non-vaccinated Third COVID19 Vaccination Date: non-vaccinated Seasonal Allergies Seasonal Allergies: No Past Medical History Surgeries: No Respiratory: No Cardiac: No Neurological: No Last Menstrual Period: Jul 24, 2022 Genitourinary: No Gastrointestinal: No Musculoskeletal: No Endocrine: No HEENT: No Cancer: No Psychosocial: No Integumentary: No Physical Exam Vital Signs Vital Signs - First Documented 08/05/22 16:10 Temp 36.7 Pulse 77 Resp 16 B/P (MAP) 130/66 (87) Pulse Ox 98 O2 Delivery Room Air Height, Weight, BMI Height: 5'7.00" Weight: 147lbs. 0oz. 66.847970ei; 27.00 BMI Method:Stated General Appearance: WD/WN, no apparent distress Eyes: bilateral eye normal inspection, bilateral eye PERRL, bilateral eye EOMI Ears: bilateral ear auricle normal, bilateral ear canal normal, bilateral ear bleeding, bilateral ear discharge, bilateral ear erythema Nose: normal inspection Mouth/Throat: normal mouth inspection, dental tenderness, excessive drooling; No maxillary swelling, No pharynx swelling, No pharynx tenderness, No tongue swollen Neck: non-tender, full range of motion, supple Cardiovascular: regular rate, rhythm Respiratory: chest non-tender, lungs clear Gastrointestinal: non tender, soft 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 Single dose of Decadron given. Recommendations for supportive care watchful waiting and PCP follow-up. Return precautions reviewed. Patient verbalizes understanding agreement discharge instructions prior to departure Impression Primary Impression: Viral pharyngitis Disposition: HOME, SELF-CARE Condition: Stable Departure-Patient Inst. Decision time for Depature: 16:25 Referrals: SHERITA HAWLEY APRN (PCP) Primary Care Physician [facility] (Family) Primary Care Physician Patient Instructions: Sore Throat, Adult ED Add. Discharge Instructions: You were evaluated in the emergency department for sore throat. Your symptoms are consistent with a viral illness. Single dose of steroids was given. You may continue the use ibuprofen and Tylenol and Chloraseptic spray as needed. Follow-up with your PCP in 2 to 3 days for reevaluation of symptoms All discharge instructions reviewed with patient and/or family. Voiced understanding. ELDON GROVER DO Aug 05, 2022 16:25
== END 2022-08-05 17:28 | disposition home or self-care (01) ==
LOC: EDUNIT# 16:01 → ER FS 16:03
DX: J02.9 Acute pharyngitis, unspecified (principal); B34.9 Viral infection, unspecified; Z28.310 Unvaccinated for COVID-19
CPT/HCPCS: 99283

== ENCOUNTER 2022-08-11 18:19 | Emergency (ER) | payer MEDICAID | END 2022-08-11 18:35 | disposition left against medical advice (07) | LOC: EDUNIT# 18:19 → ER FS 18:20 | DX: H92.09 Otalgia, unspecified ear (principal) ==

== ENCOUNTER 2022-08-14 17:23 | Emergency (ER) | payer MEDICAID ==
[2022-08-15] MEDS ORDERED: ONDA4TAB11 SL (17:21)
== END 2022-08-14 17:34 | disposition left against medical advice (07) ==
LOC: EDUNIT# 17:23 → ER FS 17:24
DX: R10.9 Unspecified abdominal pain (principal)

== ENCOUNTER 2022-08-15 16:47 | Emergency (ER) | payer MEDICAID ==
[~2022-08-15] VITALS: Ht 170.2 cm; Wt 79.4 kg
[2022-08-15] MEDS ORDERED: PROMETHAZINE 25 MG (PHENERGAN) TAB PO ONE (17:00)
[2022-08-15 17:01] VITALS: BP 141/78
--- NOTE | 2022-08-15 17:02 | ED GI ---
General Chief Complaint: Chest Wall Stated Complaint: R SIDE RIB PAIN Source of Information: Patient Exam Limitations: No Limitations History of Present Illness Date Seen by Provider: Aug 15, 2022 Time Seen by Provider: 16:50 Initial Comments 26-year-old female coming in due to right-sided chest discomfort in the setting of several days of nonbloody nonbilious vomiting. She says she has been retching, and she believes like that is why her chest wall is sore. Denies any real abdominal pain associated with this. Has had some nonbloody diarrhea as well. Took ibuprofen and Tylenol both within the past couple of hours. No fever that she knows of. She did have a sick child a couple weeks ago. Otherwise denying any other acute complaints. To go to the urgent care, and they told her if symptoms persist to present to the ER. Allergies and Home Medications Allergies Coded Allergies: diazepam (Unverified Adverse Reaction, Severe, stopped breathing, 01/05/22) Patient Home Medication List Home Medication List Reviewed: Yes Ibuprofen (Ibuprofen) 800 Mg Tablet, 800 MG PO Q8H PRN for PAIN Prescribed by: ALEKSANDR MCDONALD on 01/24/22 173 Ibuprofen (Ibuprofen) 800 Mg Tablet, 800 MG PO Q8H PRN for PAIN Prescribed by: ALEKSANDR MCDONALD on 01/31/222013 Ibuprofen (Ibuprofen) 600 Mg Tablet, 600 MG PO Q6H PRN for PAIN-MILD Prescribed by: ELDON GROVER on 02/28/22 183 Ibuprofen (Ibuprofen) 600 Mg Tablet, 600 MG PO Q8H PRN for PAIN-MILD Prescribed by: Estela anton on 04/29/22 191 Lamotrigine (Lamotrigine) 25 Mg Tablet, (Reported) Entered as Reported by: STEVE JAMES on 01/05/222139 Meclizine HCl (Meclizine HCl) 25 Mg Tablet, 25 MG PO Q12H PRN for VERTIGO Prescribed by: CATHI FELICIANO on 01/05/222130 Methocarbamol (Methocarbamol) 750 Mg Tablet, 1,500 MG PO Q8H PRN for neck pain/muscle spasm Prescribed by: ALEKSANDR MCDONALD on 01/24/22 173 Metronidazole (Metronidazole) 500 Mg Tablet, 500 MG PO BID Prescribed by: ALEKSANDR MCDONALD on 11/07/212056 Ondansetron (Ondansetron Odt) 4 Mg Tab.rapdis, 4 MG PO Q6H PRN for NAUSEA/VOMITING Prescribed by: ALEKSANDR GARDNERYART on 11/07/212056 Ondansetron (Ondansetron Odt) 4 Mg Tab.rapdis, 4 MG PO Q6H PRN for NAUSEA/VOMITING Prescribed by: ALEKSANDR LEERT on 02/11/22 141 Ondansetron (Ondansetron Odt) 4 Mg Tab.rapdis, 4 MG PO TID PRN for NAUSEA-1ST LINE Prescribed by: Estela anton on 04/29/22 191 Ondansetron (Ondansetron Odt) 4 Mg Tab.rapdis, 4 MG SL Q6H PRN for NAUS EA/VOMITING Prescribed by: CATHI FELICIANO on 08/15/22 172 Pantoprazole Sodium (Pantoprazole Sodium) 40 Mg Tablet.dr, 40 MG PO DAILY Prescribed by: ALEKSANDR MCDONALD on 11/07/212056 Sulfamethoxazole/Trimethoprim (Bactrim Ds Tablet) 1 Each Tablet, 1 EACH PO BID Prescribed by: LISA DO on 10/31/21 1542 Sulfamethoxazole/Trimethoprim (Bactrim Ds Tablet) 1 Each Tablet, 1 EACH PO BID Prescribed by: ALEKSANDR MCDONALD on 02/11/22 141 Review of Systems Review of Systems Constitutional: No fever EENTM: No Symptoms Reported Respiratory: No Symptoms Reported Cardiovascular: No Symptoms Reported Gastrointestinal: Diarrhea, Nausea, Vomiting Genitourinary: No Symptoms Reported Musculoskeletal: no symptoms reported Skin: no symptoms reported Psychiatric/Neurological: No Symptoms Reported Endocrine: No Symptoms Reported Hematologic/Lymphatic: No Symptoms Reported All Other Systems Reviewed Negative Unless Noted: Yes Past Nowhglt-Mfxjza-Aiqflk Hx Patient Social History Tobacco Use?: No Use of E-Cig and/or Vaping dev: No Substance use?: No Alcohol Use?: No Immunizations Up To Date First/Initial COVID19 Vaccinat: non-vaccinated Second COVID19 Vaccination Joel: non-vaccinated Third COVID19 Vaccination Date: non-vaccinated Seasonal Allergies Seasonal Allergies: No Past Medical History Surgeries: No Respiratory: No Cardiac: No Neurological: No Genitourinary: No Gastrointestinal: No Musculoskeletal: No Endocrine: No HEENT: No Cancer: No Psychosocial: No Integumentary: No Physical Exam Vital Signs Vital Signs - First Documented 08/15/22 17:01 Temp 36.7 Pulse 61 Resp 16 B/P (MAP) 141/78 (99) Pulse Ox 98 O2 Delivery Room Air Capillary Refill : Height/Weight/BMI Height: 5'7.00" Weight: 147lbs. 0oz. 66.907142lo; 27.00 BMI Method:Stated General Appearance: WD/WN, no apparent distress HEENT: PERRL/EOMI, normal ENT inspection, pharynx normal Neck: non-tender, full range of motion, supple, normal inspection Respiratory: chest non-tender, lungs clear, normal breath sounds, no respiratory distress, no accessory muscle use Cardiovascular: regular rate, rhythm, no edema, no murmur Gastrointestinal: normal bowel sounds, non tender, soft; No distended, No guarding, No rebound Extremities: normal range of motion, non-tender, normal inspection, no pedal edema, no calf tenderness, normal capillary refill Back: normal inspection, no CVA tenderness Neurologic/Psychiatric: no motor/sensory deficits, alert, normal mood/affect Skin: normal color, warm/dry Lymphatic: no adenopathy Progress/Results/Core Measures Results/Orders Lab Results Laboratory Tests Test 08/15/22 17:05 Range/Units Influenza Type A (RT-PCR) Not Detected Not Detecte Influenza Type B (RT-PCR) Not Detected Not Detecte SARS-CoV-2 RNA (RT-PCR) Not Detected Not Detecte My Orders Orders - CATHI FELICIANO MD Influenza A And B By Pcr (08/15/22 16:58) Covid 19 Inhouse Test (08/15/22 16:58) Chest Pa/Lat (2 View) (08/15/22 16:58) Promethazine Tablet (Phenergan Tablet) (08/15/22 17:00) Medications Given in ED Current Medications Medications Dose Ordered Sig/Thalia Route Start Time Stop Time Status Last Admin Dose Admin Promethazine HCl 25 mg ONCE ONCE PO 08/15/22 17:00 08/15/22 17:01 DC 08/15/22 17:13 25 MG Vital Signs/I&O 08/15/22 17:01 Temp 36.7 Pulse 61 Resp 16 B/P (MAP) 141/78 (99) Pulse Ox 98 O2 Delivery Room Air Progress Progress Note : Progress Note 26-year-old female presenting for vomiting and diarrhea. ABCs were intact and vitals were stable on presentation. Physical exam reassuring including a soft and nontender abdomen. Chest x-ray clear with no acute abnormalities. Flu and COVID test sent and are pending. Given Phenergan for nausea. Tolerating p.o. here. Otherwise well-appearing. This is likely viral in etiology given similar symptoms of numerous patients in the community at this time. I believe she is stable for discharge with outpatient follow-up. She was sent home with strict return precautions Departure Impression Primary Impression: Vomiting in adult Disposition: HOME, SELF-CARE Condition: Stable Departure-Patient Inst. Decision time for Depature: 17:35 Referrals: SHERITA HAWLEY APRN (PCP) Primary Care Physician [facility] (Family) Primary Care Physician Patient Instructions: Nausea and Vomiting, Adult ED Add. Discharge Instructions: We have been seeing an illness going around [place] with a lot of vomiting and diarrhea. Unfortunately you have caught this. Take the Zofran as needed for the nausea. For pain, continue to take ibuprofen and/or Tylenol as needed. Most people have been improving after several days. Try not to eat anything too solid, just focus on clear liquids until you are feeling better. Scripts Ondansetron (Ondansetron Odt) 4 Mg Tab.rapdis 4 MG SL Q6H PRN for NAUSEA/VOMITING for 5 Days, #20 TAB Prov: CATHI FELICIANO MD 08/15/22 Work/School Note: Family Work Note, Patient Received Medical Care In the Emergency Department On: Aug 15, 2022 Patient Will Be Able to Return to Work/School On: Aug 16, 2022 Work Release Form Date Seen in the Emergency Department: Aug 15, 2022 Return to Work: Aug 16, 2022 Restrictions: Return-No Fever (24hrs), Return-No Vomiting(24hrs) CATHI FELICIANO MD Aug 15, 2022 17:02
[2022-08-15] MEDS ORDERED: ONDA4TAB11 SL (17:21)
--- NOTE | 2022-08-15 17:31 | Diagnostic Imaging Report ---
INDICATION: Right-sided chest pain. TIME OF EXAM: 5:15 p.m. Correlation is made with prior chest 04/29/2022. FINDINGS: The heart size is normal. The pulmonary vascularity is unremarkable. The lungs are clear. No infiltrate, effusion or pneumothorax is detected. IMPRESSION: No acute cardiopulmonary process is detected. Dictated by: Dictated on workstation # [id number]
== END 2022-08-15 17:35 | disposition home or self-care (01) ==
LOC: EDUNIT# 16:47 → ER FS 16:48
DX: R11.2 Nausea with vomiting, unspecified (principal); R19.7 Diarrhea, unspecified; Z20.822 Contact with and (suspected) exposure to COVID-19
CPT/HCPCS: 71046; 87636

== ENCOUNTER 2022-08-18 15:38 | Emergency (ER) | payer MEDICAID ==
[~2022-08-18 15:38] MED LIST changes: +ONDA4TAB11 SL
[2022-08-18 15:41] VITALS: BP 132/69
[2022-08-18] MEDS ORDERED: CYCLOBENZAPRINE 10 MG (FLEXERIL) TAB PO STA (15:44)
[2022-08-18] MEDS ORDERED: IBUPROFEN 600 MG (MOTRIN) TAB PO ONE (15:45)
[2022-08-18] MEDS ORDERED: CYCL10TA25 PO ×2 (15:55→16:05)
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
== END 2022-08-18 16:01 | disposition home or self-care (01) ==
LOC: EDUNIT# 15:38 → ER FS 15:39
DX: M54.50 Low back pain, unspecified (principal); V89.2XXA Person injured in unspecified motor-vehicle accident, traffic, initial encounter; Y92.410 Unspecified street and highway as the place of occurrence of the external cause
CPT/HCPCS: 72100

== ENCOUNTER → 2022-09-07 | Outpatient (CLI) | payer MEDICAID ==
[~2022-09-07] MED LIST changes: +CYCL10TA25 PO
--- NOTE | 2022-09-07 12:16 | Diagnostic Imaging Report ---
PROCEDURE: US Gallbladder. TECHNIQUE: Multiple real-time grayscale images were obtained over the right upper quadrant in various projections. INDICATION: Right upper quadrant abdominal pain COMPARISON: None FINDINGS: The liver is normal in size, shape and echo texture. Portal vein shows normal hepatopetal flow. There are no focal lesions. No intra or extrahepatic biliary dilatation is present. The common bile duct is not dilated and measures 4 to 5 mm. There is no evidence of cholelithiasis, gallbladder wall thickening, or pericholecystic fluid. The visualized portions of the head and proximal body of the pancreas are within normal limits. The distal body and tail of the pancreas are not visualized due to overlying bowel gas. There is no ascites. The right kidney measures approximately 10.2 cm in length and has a normal appearance. The visualized portions of the IVC and aorta are normal. IMPRESSION: No cholelithiasis or sonographic evidence of acute cholecystitis. Negative liver/gallbladder sonogram. Dictated by: Dictated on workstation # [id number]
== END ==
LOC: RAD FS 08:19
PROVIDERS: ATTEND Nurse Practitioner Family
DX: R10.11 Right upper quadrant pain (principal)
CPT/HCPCS: 76705

== ENCOUNTER 2022-09-24 17:52 | Emergency (ER) | payer MEDICAID ==
[~2022-09-24] VITALS: Ht 170 cm; Wt 77.0 kg
[2022-09-24 17:59] VITALS: BP 135/66
[2022-09-24] MEDS ORDERED: ONDANSETRON 4 MG (ZOFRAN) ORAL DISSOLVE TAB PO STA (18:08)
--- NOTE | 2022-09-24 18:14 | ED General ---
General Chief Complaint: General Problems/Pain Stated Complaint: DIZZY, NOT FEELING RIGHT Nursing Triage Note: Patient has presented to ER with cc of feeling dizzy for the last 3 days - she states that she feel like she is going to fall over. She reports a headache that has gone away - she has taken tylenol and ibuprofen for the pain. Source of Information: Patient Exam Limitations: No Limitations History of Present Illness Date Seen by Provider: Sep 24, 2022 Time Seen by Provider: 17:59 Initial Comments 26-year-old female patient with history of frequent emergency room visit complaining of dizziness. Patient complaining of episode of dizziness with standing up for the last 3 days associated with nausea and global headache without focal neurodeficit, fever or chills, vomiting, head injury, recent dehydration, cough and congestion, shortness of breath and chest pain, palpitation. Patient complaining headache with episode of standing up and dizziness that resolved now. Patient had history of dizziness couple months ago and treated with meclizine and stated she took meclizine recently without improvement of her dizziness. Allergies and Home Medications Allergies Coded Allergies: diazepam (Unverified Adverse Reaction, Severe, stopped breathing, 01/05/22) Patient Home Medication List Home Medication List Reviewed: Yes Ciprofloxacin HCl (Cipro) 250 Mg Tablet, 250 MG PO Q12H Prescribed by: Estela hutchison on 09/24/221829 Cyclobenzaprine HCl (Cyclobenzaprine HCl) 10 Mg Tablet, 10 MG PO Q8H PRN for SPASMS Prescribed by: CATHI FELICIANO on 08/18/22 1605 Ibuprofen (Ibuprofen) 800 Mg Tablet, 800 MG PO Q8H PRN for PAIN Prescribed by: ALEKSANDR MCDONALD on 01/24/22 1731 Ibuprofen (Ibuprofen) 800 Mg Tablet, 800 MG PO Q8H PRN for PAIN Prescribed by: ALEKSANDR MCDONALD on 01/31/222013 Ibuprofen (Ibuprofen) 600 Mg Tablet, 600 MG PO Q6H PRN for PAIN-MILD Prescribed by: ELDON GROVER on 02/28/22 183 Ibuprofen (Ibuprofen) 600 Mg Tablet, 600 MG PO Q8H PRN for PAIN-MILD Prescribed by: Estela hutchison on 04/29/22 191 Lamotrigine (Lamotrigine) 25 Mg Tablet, (Reported) Entered as Reported by: STEVE JAMES on 01/05/222139 Meclizine HCl (Meclizine HCl) 25 Mg Tablet, 25 MG PO Q12H PRN for VERTIGO Prescribed by: CATHI FELICIANO on 01/05/222130 Methocarbamol (Methocarbamol) 750 Mg Tablet, 1,500 MG PO Q8H PRN for neck pain/muscle spasm Prescribed by: ALEKSANDR LEERT on 01/24/22 173 Metronidazole (Metronidazole) 500 Mg Tablet, 500 MG PO BID Prescribed by: ALEKSANDR GARDNERYART on 11/07/212056 Ondansetron (Ondansetron Odt) 4 Mg Tab.rapdis, 4 MG PO Q6H PRN for NAUSEA/VOMITING Prescribed by: ALEKSANDR LEERT on 11/07/212056 Ondansetron (Ondansetron Odt) 4 Mg Tab.rapdis, 4 MG PO Q6H PRN for NAUSEA/VOMITING Prescribed by: ALEKSANDR LEERT on 02/11/22 141 Ondansetron (Ondansetron Odt) 4 Mg Tab.rapdis, 4 MG PO TID PRN for NAUSEA-1ST LINE Prescribed by: Estela hutchison on 04/29/22 191 Ondansetron (Ondansetron Odt) 4 Mg Tab.rapdis, 4 MG SL Q6H PRN for NAUSEA /VOMITING Prescribed by: CATHI FELICIANO on 08/15/22 172 Ondansetron (Ondansetron Odt) 4 Mg Tab.rapdis, 4 MG PO TID PRN for NAUSEA-1ST LINE Prescribed by: Estela hutchison on 09/24/22 1830 Pantoprazole Sodium (Pantoprazole Sodium) 40 Mg Tablet.dr, 40 MG PO DAILY Prescribed by: ALEKSANDR LEERT on 11/07/212056 Sulfamethoxazole/Trimethoprim (Bactrim Ds Tablet) 1 Each Tablet, 1 EACH PO BID Prescribed by: LISA DO on 10/31/21 1542 Sulfamethoxazole/Trimethoprim (Bactrim Ds Tablet) 1 Each Tablet, 1 EACH PO BID Prescribed by: ALEKSANDR LEERT on 02/11/22 1410 Review of Systems Review of Systems Constitutional: see HPI EENTM: see HPI Respiratory: see HPI Cardiovascular: see HPI Gastrointestinal: see HPI Genitourinary: see HPI Musculoskeletal: see HPI Skin: see HPI Psychiatric/Neurological: See HPI Hematologic/Lymphatic: See HPI Immunological/Allergic: see HPI All Other Systems Reviewed Negative Unless Noted: Yes Past Nsgxkxk-[id number]-Xlprbf Hx Patient Social History Tobacco Use?: No Use of E-Cig and/or Vaping dev: No Substance use?: No Alcohol Use?: No Pt feels they are or have been: No Immunizations Up To Date First/Initial COVID19 Vaccinat: non-vaccinated Second COVID19 Vaccination Joel: non-vaccinated Third COVID19 Vaccination Date: non-vaccinated Seasonal Allergies Seasonal Allergies: No Past Medical History 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 0oz. 66.647889et; 26.00 BMI Method:Stated General Appearance: No Apparent Distress, WD/WN Eyes: Bilateral Eye PERRL, Bilateral Eye Other (Bilateral chronic nystagmus) HEENT: TMs Normal, Normal ENT Inspection, Pharynx Normal Neck: Full Range of Motion, Normal Inspection, Non Tender Respiratory: Chest Non Tender, Lungs Clear, Normal Breath Sounds Cardiovascular: Regular Rate, Rhythm, No Edema, No Gallop Gastrointestinal: Normal Bowel Sounds Back: Normal Inspection, No CVA Tenderness Extremity: Normal Capillary Refill, Normal Inspection, Normal Range of Motion Neurologic/Psychiatric: Alert, Oriented x3, No Motor/Sensory Deficits, Normal Mood/Affect Skin: Normal Color Progress/Results/Core Measures Suspected Sepsis SIRS Temperature: Pulse: 75 Respiratory Rate: 16 Blood Pressure 135 /66 Mean: 89 Results/Orders Lab Results Laboratory Tests Test 09/24/22 18:09 Range/Units Urine Color YELLOW Urine Clarity CLOUDY Urine pH 6.0 5-9 Urine Specific [place] 1.020 1.016-1.022 Urine Protein NEGATIVE NEGATIVE Urine Glucose (UA) NEGATIVE NEGATIVE Urine Ketones NEGATIVE NEGATIVE Urine Nitrite POSITIVE H NEGATIVE Urine Bilirubin NEGATIVE NEGATIVE Urine Urobilinogen 0.2 < = 1.0 MG/DL Urine Leukocyte Esterase 1+ H NEGATIVE Urine RBC (Auto) 2+ H NEGATIVE Urine RBC 0-2 /HPF Urine WBC 25-50 H /HPF Urine Squamous Epithelial Cells 5-10 /HPF Urine Crystals NONE /LPF Urine Bacteria LARGE H /HPF Urine Casts NONE /LPF Urine Mucus LARGE H /LPF Urine Culture Indicated YES Urine Test NEGATIVE NEGATIVE My Orders Orders - ESTELA HUTCHISON MD Ua Culture If Indicated (09/24/22 18:08) Hcg,Qualitative Urine (09/24/22 18:08) Ondansetron Oral Dissolve Tab (Zofran (09/24/22 18:08) Urine Culture (09/24/22 18:09) Ciprofloxacin Tablet (Cipro Tablet) (09/24/22 18:30) Vital Signs/I&O 09/24/22 17:59 Temp 36.8 Pulse 75 Resp 16 B/P (MAP) 135/66 (89) Pulse Ox 94 O2 Delivery Room Air Capillary Refill : Blood Pressure Mean: 89 Progress Note : Progress Note 26-year-old female patient with complaining of positional dizziness for the last 3 days associated with headache and nausea. Patient had unremarkable physical and neuro exam except for chronic bilateral nystagmus. UA showed UTI, urine test was negative patient denied urinary symptoms. Patient had the same problem previously and treated with meclizine and has meclizine currently at home. Patient treated with Zofran and Cipro in ER and plan to discharge her home with prescription of Zofran and Cipro and instruction to increase fluid intake. Departure Impression Primary Impression: Urinary tract infection Qualified Codes: N30.01 - Acute cystitis with hematuria Additional Impression: Benign positional vertigo Qualified Codes: H81.10 - Benign paroxysmal vertigo, unspecified ear Disposition: HOME, SELF-CARE Condition: Improved Departure-Patient Inst. Decision time for Depature: 18:28 Referrals: SHERITA HAWLEY APRN (PCP) Primary Care Physician [facility] (Family) Primary Care Physician Patient Instructions: Vertigo (a Type of Dizziness) (DC), Urinary Tract Infection, Adult ED Add. Discharge Instructions: Drink plenty of liquids Follow-up with your primary care physician in 3 to 5 days Return to ER as needed Take home meclizine as needed for dizziness All discharge instructions reviewed with patient and/or family. Voiced understanding. Scripts Ondansetron (Ondansetron Odt) 4 Mg Tab.rapdis 4 MG PO TID PRN for NAUSEA-1ST LINE, #10 TAB Prov: ESTELA HUTCHISON MD 09/24/22 Ciprofloxacin HCl (Cipro) 250 Mg Tablet 250 MG PO Q12H, #6 TAB Prov: ESTELA HUTCHISON MD 09/24/22 ESTELA HUTCHISON MD Sep 24, 2022 18:14
[2022-09-24 18:16] LABS: BILIRUBIN,URINE NEGATIVE (NEGATIVE); COLOR,URINE YELLOW; GLUCOSE, URINE (UA) NEGATIVE (NEGATIVE); KETONES,URINE NEGATIVE (NEGATIVE); LEUKOCYTE ESTERASE ,URINE 1+ (NEGATIVE); NITRITE,URINE POSITIVE (NEGATIVE); PROTEIN,URINE NEGATIVE (NEGATIVE)
[2022-09-24 18:18] LABS: BACTERIA,URINE LARGE /HPF; CLARITY,URINE CLOUDY; RBC,URINE 0-2 /HPF; WBC,URINE 25-50 /HPF
[2022-09-24] MEDS ORDERED: ONDA4TAB11 PO (18:30)
[2022-09-24] MEDS ORDERED: CIPR-226 PO (18:30)
[2022-09-24] MEDS ORDERED: CIPROFLOXACIN 500 MG (CIPRO) TABLET PO ONE (18:30)
== END 2022-09-24 18:33 | disposition home or self-care (01) ==
LOC: EDUNIT# 17:52 → ER FS 17:54
DX: N39.0 Urinary tract infection, site not specified (principal); H81.10 Benign paroxysmal vertigo, unspecified ear
CPT/HCPCS: 81000; 84703; 87077; 87088; 99283

== ENCOUNTER 2022-12-06 15:13 | Emergency (ER) | payer MEDICAID ==
[~2022-12-06] VITALS: Ht 170 cm; Wt 80.0 kg
[~2022-12-06 15:13] MED LIST changes: +CIPR-226 PO
[2022-12-06 15:20] VITALS: BP 129/77
[2022-12-06] MEDS ORDERED: ONDA4TAB11 SL (16:40)
[2022-12-06] MEDS ORDERED: AMOX500C2 PO (16:40)
--- NOTE | 2022-12-06 16:40 | ED General ---
General Chief Complaint: General Problems/Pain Stated Complaint: HOT AND COLD FLASHES,HEADACHES, THROAT CLOSING UP Nursing Triage Note: Patient has presented to ER with cc of hot and cold flashes for the last 3 months. Source of Information: Patient Exam Limitations: No Limitations History of Present Illness Date Seen by Provider: Dec 06, 2022 Time Seen by Provider: 15:18 Initial Comments This 27-year-old woman presents to the emergency room with complaints of hot and cold flashes, night sweats, sore throat, headache, cough, feeling of shortness of breath, mild diarrhea, and sensitivity to smells. Symptoms have been going on for 3 days. Her son is currently being treated for strep throat. She additionally complains of some hot and cold flashes for about 3 months. Those have not worsened. She has not seen her primary care provider about that yet. Vital signs are normal and unremarkable. Allergies and Home Medications Allergies Coded Allergies: diazepam (Unverified Adverse Reaction, Severe, stopped breathing, 01/05/22) Patient Home Medication List Home Medication List Reviewed: Yes Amoxicillin (Amoxicillin) 500 Mg Capsule, 1,000 MG PO BID Prescribed by: HUBERT BRADLEY on 12/06/22 1640 Ciprofloxacin HCl (Cipro) 250 Mg Tablet, 250 MG PO Q12H Prescribed by: Estela anton on 09/24/22 183 Cyclobenzaprine HCl (Cyclobenzaprine HCl) 10 Mg Tablet, 10 MG PO Q8H PRN for SPASMS Prescribed by: CATHI FELICIANO on 08/18/22 1605 Ibuprofen (Ibuprofen) 800 Mg Tablet, 800 MG PO Q8H PRN for PAIN Prescribed by: ALEKSANDR MCDONALD on 01/24/22 1731 Ibuprofen (Ibuprofen) 800 Mg Tablet, 800 MG PO Q8H PRN for PAIN Prescribed by: ALEKSANDR MCDONALD on 01/31/222013 Ibuprofen (Ibuprofen) 600 Mg Tablet, 600 MG PO Q6H PRN for PAIN-MILD Prescribed by: ELDON GROVER on 02/28/22 183 Ibuprofen (Ibuprofen) 600 Mg Tablet, 600 MG PO Q8H PRN for PAIN-MILD Prescribed by: Estela anton on 04/29/22 1911 Lamotrigine (Lamotrigine) 25 Mg Tablet, (Reported) Entered as Reported by: STEVE JAMES on 01/05/22 2140 Meclizine HCl (Meclizine HCl) 25 Mg Tablet, 25 MG PO Q12H PRN for VERTIGO Prescribed by: CATHI FELICIANO on 01/05/22 213 Methocarbamol (Methocarbamol) 750 Mg Tablet, 1,500 MG PO Q8H PRN for neck pain/muscle spasm Prescribed by: ALEKSANDR MCDONALD on 01/24/22 173 Metronidazole (Metronidazole) 500 Mg Tablet, 500 MG PO BID Prescribed by: ALEKSANDR MCDONALD on 11/07/212056 Ondansetron (Ondansetron Odt) 4 Mg Tab.rapdis, 4 MG PO Q6H PRN for NAUSEA/VOMITING Prescribed by: ALEKSANDR MCDONALD on 11/07/212056 Ondansetron (Ondansetron Odt) 4 Mg Tab.rapdis, 4 MG PO Q6H PRN for NAUSEA/VOMITING Prescribed by: ALEKSANDR MCDONALD on 02/11/22 1410 Ondansetron (Ondansetron Odt) 4 Mg Tab.rapdis, 4 MG PO TID PRN for NAUSEA-1ST LINE Prescribed by: Estela anton on 04/29/22 1911 Ondansetron (Ondansetron Odt) 4 Mg Tab.rapdis, 4 MG SL Q6H PRN for NAUSEA/VOMITING Prescribed by: CATHI FELICINAO on 08/15/22 1721 Ondansetron (Ondansetron Odt) 4 Mg Tab.rapdis, 4 MG PO TID PRN for NAUSEA-1ST LINE Prescribed by: Estela anton on 09/24/22 1830 Ondansetron (Ondansetron Odt) 4 Mg Tab.rapdis, 4 MG SL Q4H PRN for NAUSEA/VOMITING Prescribed by: HUBERT BRADLEY on 12/06/22 1640 Pantoprazole Sodium (Pantoprazole Sodium) 40 Mg Tablet.dr, 40 MG PO DAILY Prescribed by: ALEKSANDR MCDONALD on 11/07/212056 Sulfamethoxazole/Trimethoprim (Bactrim Ds Tablet) 1 Each Tablet, 1 EACH PO BID Prescribed by: LISA DO on 10/31/21 1542 Sulfamethoxazole/Trimethoprim (Bactrim Ds Tablet) 1 Each Tablet, 1 EACH PO BID Prescribed by: ALEKSANDR MCDONALD on 02/11/22 1410 Review of Systems Review of Systems Constitutional: see HPI EENTM: see HPI Respiratory: see HPI Cardiovascular: no symptoms reported Gastrointestinal: no symptoms reported Genitourinary: no symptoms reported : No Musculoskeletal: no symptoms reported Skin: no symptoms reported Psychiatric/Neurological: See HPI Hematologic/Lymphatic: No Symptoms Reported Immunological/Allergic: no symptoms reported Past Iusthkf-Lreobs-Vdkyhe Hx Patient Social History Tobacco Use?: No Use of E-Cig and/or Vaping dev: No Substance use?: No Alcohol Use?: No Immunizations Up To Date First/Initial COVID19 Vaccinat: non-vaccinated Second COVID19 Vaccination Joel: non-vaccinated Third COVID19 Vaccination Date: non-vaccinated Seasonal Allergies Seasonal Allergies: No Past Medical History 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 0oz. 66.111078ns; 27.00 BMI Method:Stated General Appearance: No Apparent Distress, WD/WN HEENT: PERRL/EOMI, TMs Normal, Normal ENT Inspection, Pharyngeal Erythema (Scant erythema around the edges of the soft palate and oropharynx) Neck: Normal Inspection; No Lymphadenopathy (L), No Lymphadenopathy (R) Respiratory: Lungs Clear, Normal Breath Sounds, No Accessory Muscle Use, No Respiratory Distress Cardiovascular: Regular Rate, Rhythm, No Edema, No Murmur Gastrointestinal: Non Tender, Soft Extremity: Normal Inspection Neurologic/Psychiatric: Alert, Oriented x3, No Motor/Sensory Deficits, Normal Mood/Affect Skin: Normal Color, Warm/Dry Progress/Results/Core Measures Suspected Sepsis SIRS Temperature: Pulse: 72 Respiratory Rate: 16 Blood Pressure 129 /77 Mean: 94 Results/Orders Lab Results Laboratory Tests Test 3/29/23 15:30 Range/Units Influenza Type A (RT-PCR) Not Detected Not Detecte Influenza Type B (RT-PCR) Not Detected Not Detecte SARS-CoV-2 RNA (RT-PCR) Not Detected Not Detecte Group A Streptococcus Screen NEGATIVE NEGATIVE Micro Results Microbiology 12/06/22 Throat Culture - Final, Complete No Beta Strep isolated My Orders Orders - HUBERT CRONIN MD Rapid Strep A Screen (12/06/22 15:25) Covid 19 Inhouse Test (12/06/22 15:25) Influenza A And B By Pcr (12/06/22 15:25) Vital Signs/I&O 12/06/22 15:20 Temp 36.1 Pulse 72 Resp 16 B/P (MAP) 129/77 (94) Pulse Ox 97 O2 Delivery Room Air Capillary Refill : Blood Pressure Mean: 94 Progress Note : Progress Note Swabs for influenza and COVID-19 were negative. Rapid strep test was also negative. Because patient is symptomatic and has a positive strep throat exposure, she is being treated with amoxicillin until her culture results can be reviewed. See discharge instructions for further discussion. Departure Impression Primary Impression: Sore throat Additional Impressions: Nausea Exposure to strep throat Disposition: HOME, SELF-CARE Condition: Stable Departure-Patient Inst. Decision time for Depature: 16:38 Referrals: SHERITA HAWLEY APRN (PCP) Primary Care Physician [facility] (Family) Primary Care Physician Patient Instructions: Strep Throat ED, Sore Throat, Adult ED Add. Discharge Instructions: Drink plenty of clear liquids to stay well-hydrated. Complete your antibiotics as prescribed. 5 to 7 days into your treatment, sanitize or replace oral instruments such as toothbrushes to prevent reinfection. You may take ibuprofen up to 600 mg every 6 hours as needed and/or Tylenol (acetaminophen) up to 1000 mg every 6 hours as needed for pain or fever. Use the Zofran (ondansetron) as prescribed for nausea or vomiting. Please follow-up with your primary care provider soon as possible if the night sweats you have been experiencing over the last few months do not resolve with the antibiotic treatment. Return to care if you are having worsening symptoms despite following these instructions. All discharge instructions reviewed with patient and/or family. Voiced sofi darling. Scripts Ondansetron (Ondansetron Odt) 4 Mg Tab.rapdis 4 MG SL Q4H PRN for NAUSEA/VOMITING, #10 TAB Prov: HUBERT CRONIN MD 12/06/22 Amoxicillin (Amoxicillin) 500 Mg Capsule 1000 MG PO BID, #40 CAP 0 Refills Prov: HUBERT CRONIN MD 12/06/22 Work/School Note: Work Release Form Date Seen in the Emergency Department: Dec 06, 2022 Return to Work: Dec 07, 2022 Restrictions: Return-No Fever (24hrs), Return-No Vomiting(24hrs) Copy Copies To 1: [facility]/HUBERT PITTS MD Dec 06, 2022 16:40
== END 2022-12-06 16:45 | disposition home or self-care (01) ==
LOC: EDUNIT# 15:13 → ER FS 15:15
DX: J02.9 Acute pharyngitis, unspecified (principal); R11.0 Nausea; Z20.818 Contact with and (suspected) exposure to other bacterial communicable diseases; Z20.822 Contact with and (suspected) exposure to COVID-19; Z28.310 Unvaccinated for COVID-19
CPT/HCPCS: 87430; 87636; 99283

== ENCOUNTER 2023-03-26 16:19 | Emergency (ER) | payer MEDICAID ==
[~2023-03-26] VITALS: Ht 170.1 cm; Wt 76.5 kg
[~2023-03-26 16:19] MED LIST changes: +AMOX500C2 PO
[2023-03-26 16:24] VITALS: BP 121/67
--- NOTE | 2023-03-26 16:26 | ED Fall/Injury ---
General Stated Complaint: FALL, L ELBOW PAIN Source: patient History of Present Illness Date Seen by Provider: Mar 26, 2023 Time Seen by Provider: 16:26 Initial Comments 27-year-old female presenting with complaints of pain in the right elbow and arm. She was helping a friend with painting and had fallen about 3 feet off of a ladder onto her right arm. She states this happened around 1 PM. She did not hit her head or lose consciousness. She has normal sensation and can move her fingers and wrist. She has pain with movement at the elbow on the left side. She is right-hand dominant. She states that she had tried Tylenol and ibuprofen at home without any improvement in her pain. She denies other injuries. Occurred: this afternoon (Around 1300) Severity: moderate Injuries/Pain Location: upper extremity (Left elbow and arm) Context: lost balance (Fell off of a ladder approximately 3 feet up) Loss of Consciousness: no loss of consciousness Modifying Factors: Worse With Movement Associated Symptoms (Fall): No Abdominal Pain, No Chest Pain, No Confusion, No Dizziness, No Headache, No Lightheadedness, No Muscle Spasms, No Nausea/Vomiting, No Neck Pain, No Ringing in Ears, No Seizures, No Shortness of Air, No Slurred Speech, No Trouble Walking, No Vision Changes Allergies and Home Medications Allergies Coded Allergies: diazepam (Unverified Adverse Reaction, Severe, stopped breathing, 01/05/22) Patient Home Medication List Home Medication List Reviewed: Yes Amoxicillin (Amoxicillin) 500 Mg Capsule, 1,000 MG PO BID Prescribed by: HUBERT BRADLEY on 12/06/22 1640 Ciprofloxacin HCl (Cipro) 250 Mg Tablet, 250 MG PO Q12H Prescribed by: Estela anton on 09/24/22 1830 Cyclobenzaprine HCl (Cyclobenzaprine HCl) 10 Mg Tablet, 10 MG PO Q8H PRN for SPASMS Prescribed by: CATHI FELICIANO on 08/18/22 1605 Ibuprofen (Ibuprofen) 800 Mg Tablet, 800 MG PO Q8H PRN for PAIN Prescribed by: ALEKSANDR MCDONALD on 01/24/22 173 Ibuprofen (Ibuprofen) 800 Mg Tablet, 800 MG PO Q8H PRN for PAIN Prescribed by: ALEKSANDR MCDONALD on 01/31/222013 Ibuprofen (Ibuprofen) 600 Mg Tablet, 600 MG PO Q6H PRN for PAIN-MILD Prescribed by: ELDON GROVER on 02/28/22 183 Ibuprofen (Ibuprofen) 600 Mg Tablet, 600 MG PO Q8H PRN for PAIN-MILD Prescribed by: Estela anton on 04/29/221910 Ibuprofen (Ibuprofen) 800 Mg Tablet, 800 MG PO Q8H PRN for PAIN Prescribed by: ALEKSANDR LEERT on 03/26/23 171 Lamotrigine (Lamotrigine) 25 Mg Tablet, (Reported) Entered as Reported by: STEVE JAMES on 01/05/222139 Meclizine HCl (Meclizine HCl) 25 Mg Tablet, 25 MG PO Q12H PRN for VERTIGO Prescribed by: CATHI FELICIANO on 01/05/222130 Methocarbamol (Methocarbamol) 750 Mg Tablet, 1,500 MG PO Q8H PRN for neck pain/muscle spasm Prescribed by: ALEKSANDR LEERT on 01/24/22 173 Metronidazole (Metronidazole) 500 Mg Tablet, 500 MG PO BID Prescribed by: ALEKSANDR Fitch ENYART on 11/07/212056 Ondansetron (Ondansetron Odt) 4 Mg Tab.rapdis, 4 MG PO Q6H PRN for NAUSEA/VOMITING Prescribed by: ALEKSANDR GARDNERYART on 11/07/212056 Ondansetron (Ondansetron Odt) 4 Mg Tab.rapdis, 4 MG PO Q6H PRN for NAUSEA/VOMITING Prescribed by: ALEKSANDR LEERT on 02/11/22 1410 Ondansetron (Ondansetron Odt) 4 Mg Tab.rapdis, 4 MG PO TID PRN for NAUSEA-1ST LINE Prescribed by: Estela anton on 04/29/221910 Ondansetron (Ondansetron Odt) 4 Mg Tab.rapdis, 4 MG SL Q6H PRN for NAUSE A/VOMITING Prescribed by: CATHI FELICIANO on 08/15/22 172 Ondansetron (Ondansetron Odt) 4 Mg Tab.rapdis, 4 MG PO TID PRN for NAUSEA-1ST LINE Prescribed by: Estela anton on 09/24/22 183 Ondansetron (Ondansetron Odt) 4 Mg Tab.rapdis, 4 MG SL Q4H PRN for NAUSEA/VOMITING Prescribed by: HUBERT BRADLEY on 12/06/22 1640 Pantoprazole Sodium (Pantoprazole Sodium) 40 Mg Tablet.dr, 40 MG PO DAILY Prescribed by: ALEKSANDR MCDONALD on 11/07/212056 Sulfamethoxazole/Trimethoprim (Bactrim Ds Tablet) 1 Each Tablet, 1 EACH PO BID Prescribed by: LISA DO on 10/31/21 1542 Sulfamethoxazole/Trimethoprim (Bactrim Ds Tablet) 1 Each Tablet, 1 EACH PO BID Prescribed by: ALEKSANDR MCDONALD on 02/11/22 1410 Review of Systems Review of Systems Constitutional: No chills, No fever Eyes: No Symptoms Reported Ears, Nose, Mouth, Throat: no symptoms reported Respiratory: no symptoms reported Cardiovascular: no symptoms reported Gastrointestinal: no symptoms reported Genitourinary: no symptoms reported Musculoskeletal: see HPI Skin: No change in color Psychiatric/Neurological: Denies Numbness, Denies Paresthesia Past Dfbtqof-Yrnpnu-Pjbftc Hx Patient Social History Tobacco Use?: No Immunizations Up To Date First/Initial COVID19 Vaccinat: non-vaccinated Second COVID19 Vaccination Joel: non-vaccinated Third COVID19 Vaccination Date: non-vaccinated Seasonal Allergies Seasonal Allergies: No Past Medical History 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 0oz. 66.793540en; 27.00 BMI Method:Stated General Appearance: WD/WN, no apparent distress HEENT: PERRL/EOMI, pharynx normal Neck: non-tender, full range of motion, supple, normal inspection Cardiovascular: normal peripheral pulses, regular rate, rhythm Respiratory: chest non-tender, lungs clear, normal breath sounds Extremities: normal capillary refill, other (Pain to the left elbow with palpation and attempted movement. She is neurovascularly and tendon intact distally and able to abduct her thumb and adduct with her pinky finger as well as index finger and extend her Fingers.) Neurologic/Psychiatric: alert, oriented x 3 Skin: normal color, warm/dry [place] Coma Score Best Eye Response: (4) Open Spontaneously Best Verbal Response: (5) Oriented Best Motor Response: (6) Obeys Commands [place] Total: 15 Progress/Results/Core Measures Results/Orders My Orders Orders - ALEKSANDR MCDONALD MD Ice: Apply To Affected Area (03/26/23 16:35) Forearm 2 View Left (03/26/23 16:35) Humerus 2 View Left (03/26/23 16:35) Orthopedic Equiment (03/26/23 17:18) Ed Ortho/Other Supplies Order (03/26/23 17:18) Vital Signs/I&O 03/26/23 16:24 Temp 36.9 Pulse 67 Resp 12 B/P (MAP) 121/67 (85) O2 Delivery Room Air Progress Progress Note #1: Progress Note Since she had already taken acetaminophen and ibuprofen at home will start with an ice pack to try and help with elbow pain and obtain x-rays of the left forearm and humerus. Progress Note #2: Progress Note On my personal review of the 2 view films of the left forearm and left humerus I did not appreciate any acute fracture or dislocation. Reviewed with the patient and she requested a sling to help limit movement of her left arm. Counseled to use that for no more than 2 to 3 days and to try and keep using her arm. Prescription for ibuprofen 800 mg p.o. every 8 hours as needed pain and inflammation. Advised that she could continue with ice 15 to 20 minutes every few hours as needed for pain and swelling. Check back with the clinic if not improving over the next 3 to 5 days. Diagnostic Imaging Diagonstic Imaging: Xray Plain Films/CT/US/NM/MRI: forearm Comments [facility] [place] [place] NAME: [facility] REC#: [id number] PT STATUS: REG ER : 1995 PHYSICIAN: ALEKSANDR MCDONALD MD ADMIT DATE: 03/26/23/ER FS Draft Date of Exam:03/26/23 FOREARM 2 VIEW LEFT INDICATION: Left forearm pain AP and lateral views of the left forearm show no fracture, dislocation or other acute abnormalities. IMPRESSION: Negative left forearm Dictated on workstation # [id number] Dict: 03/26/231653 Trans: 03/26/231655 NICKI [id number] Interpreted by: JACOB WALTER MD Electronically signed by: Reviewed: Reviewed by Me Diagonstic Imaging: Xray Plain Films/CT/US/NM/MRI: other (left humerus) Comments [facility] [place] NAME: [facility] REC#: [id number] PT STATUS: REG ER : 1995 PHYSICIAN: ALEKSANDR MCDONALD MD ADMIT DATE: 03/26/23/ER FS Signed Date of Exam:03/26/23 HUMERUS 2 VIEW LEFT INDICATION: pain after fall from 3 foot ladder at 1300 TECHNIQUE: 2 views of the left humerus CORRELATION STUDY: None FINDINGS: The humerus has an unremarkable appearance. The visualized portions of the shoulder and elbow are unremarkable. Soft tissues are unremarkable. IMPRESSION: 1. Negative for acute bony abnormality of the left humerus. Dictated by: Dictated on workstation # [id number] Dict: 03/26/231653 Trans: 03/26/231699 [id number] Interpreted by: JOSE HERNANDEZ DO Electronically signed by: JOSE HERNANDEZ DO 03/26/231699 Reviewed: Reviewed by Me Departure Impression Primary Impression: Contusion of left elbow, initial encounter Additional Impressions: Fall on and from ladder, initial encounter Left arm pain Disposition: 01 HOME, SELF-CARE Condition: Stable Departure-Patient Inst. Decision time for Depature: 17:08 Referrals: SHERITA HAWLEY APRN (PCP) Primary Care Physician [facility] (Family) Primary Care Physician Patient Instructions: Elbow Sprain ED, Minor Contusion ED, Muscle and Bone Pain (DC) Add. Discharge Instructions: There were no fractures or broken bones seen on the x-rays. Use ice 15 to 20 minutes every few hours as needed for pain and swelling. Continue with ibuprofen for pain and inflammation. You may also take acetaminophen along with that if needed for additional pain control. If pain persist or is not improving over the next 3 to 5 days check back with the clinic as they may need to repeat the x-rays. Scripts Ibuprofen (Ibuprofen) 800 Mg Tablet 800 MG PO Q8H PRN for PAIN for 10 Days, #30 TAB 0 Refills Prov: ALEKSANDR MCDONALD MD 03/26/23 Work/School Note: Work Release Form Date Seen in the Emergency Department: Mar 26, 2023 Return to Work: Mar 27, 2023 Restrictions: No PE-Until Released Other Restrictions Listed Below: Limit use of left arm x 1 week ALEKSANDR MCDONALD MD Mar 26, 2023 16:26
--- NOTE | 2023-03-26 16:55 | Diagnostic Imaging Report ---
INDICATION: pain after fall from 3 foot ladder at 1300 TECHNIQUE: 2 views of the left humerus CORRELATION STUDY: None FINDINGS: The humerus has an unremarkable appearance. The visualized portions of the shoulder and elbow are unremarkable. Soft tissues are unremarkable. IMPRESSION: 1. Negative for acute bony abnormality of the left humerus. Dictated by: Dictated on workstation # [id number]
--- NOTE | 2023-03-26 16:56 | Diagnostic Imaging Report ---
INDICATION: Left forearm pain AP and lateral views of the left forearm show no fracture, dislocation or other acute abnormalities. IMPRESSION: Negative left forearm Dictated by: Dictated on workstation # [id number]
[2023-03-26] MEDS ORDERED: IBUP-1780 PO (17:10)
== END 2023-03-26 17:22 | disposition home or self-care (01) ==
LOC: EDUNIT# 16:19 → ER FS 16:21
DX: S50.02XA Contusion of left elbow, initial encounter (principal); Z28.310 Unvaccinated for COVID-19; W11.XXXA Fall on and from ladder, initial encounter
CPT/HCPCS: 73060; 73090; 99283; A4565

== ENCOUNTER 2023-05-14 00:22 | Emergency (ER) | payer MEDICAID ==
[~2023-05-14] VITALS: Ht 170.1 cm; Wt 76.5 kg
[2023-05-14] MEDS ORDERED: levETIRAcetam 1000 mg/NS 100ml 100 ML IV STA (00:33)
[2023-05-14] MEDS ORDERED: NS IV 1000 ML 1,000 ML IV STA (00:33)
--- NOTE | 2023-05-14 00:39 | ED General ---
General Chief Complaint: Neurological Problems Stated Complaint: SEIZURE Source of Information: Patient, EMS, Old Records Exam Limitations: Other (altered mental status with postictal phase) History of Present Illness Date Seen by Provider: May 14, 2023 Time Seen by Provider: 00:22 Initial Comments 27-year-old female presenting with EMS from home after having a seizure and rolling off the couch. In the process of doing this she hit her face and had a bloody nose. She was postictal and combative with EMS and was given Ativan 1 mg IV. After that she has become more calm and cooperative. Per family on scene she has not been taking her seizure medicine for a long time and unsure when she last took it. She has a history of reported stroke as a that triggered her seizure activity. Timing/Duration: 1/2 Hour Associated Systoms: No Chest Pain, No Cough, No Diaphoresis, No Fever/Chills, No Headaches, No Loss of Appetite, No Malaise, No Nausea/Vomiting; Seizure; No Shortness of Air Allergies and Home Medications Allergies Coded Allergies: diazepam (Unverified Adverse Reaction, Severe, stopped breathing, 01/05/22) Patient Home Medication List Home Medication List Reviewed: Yes Lamotrigine (Lamotrigine) 25 Mg Tablet, (Reported) Entered as Reported by: STEVE JAMES on 01/05/222139 Levetiracetam (Keppra) 500 Mg Tablet, 500 MG PO BID Prescribed by: ALEKSANDR MCDONALD on 05/14/23 0202 Discontinued Medications Amoxicillin (Amoxicillin) 500 Mg Capsule, 1,000 MG PO BID Prescribed by: HUBERT BRADLEY on 12/06/22 1640 Last Action: Discontinued Ciprofloxacin HCl (Cipro) 250 Mg Tablet, 250 MG PO Q12H Prescribed by: Estela anton on 09/24/22 1830 Last Action: Discontinued Cyclobenzaprine HCl (Cyclobenzaprine HCl) 10 Mg Tablet, 10 MG PO Q8H PRN for SPASMS Prescribed by: CATHI FELICIANO on 08/18/22 1605 Last Action: Discontinued Ibuprofen (Ibuprofen) 800 Mg Tablet, 800 MG PO Q8H PRN for PAIN Prescribed by: ALEKSANDR MCDONALD on 01/24/22 1731 Last Action: Discontinued Ibuprofen (Ibuprofen) 800 Mg Tablet, 800 MG PO Q8H PRN for PAIN Prescribed by: ALEKSANDR MCDONALD on 01/31/222013 Last Action: Discontinued Ibuprofen (Ibuprofen) 600 Mg Tablet, 600 MG PO Q6H PRN for PAIN-MILD Prescribed by: ELDON GROVER on 02/28/22 1838 Last Action: Discontinued Ibuprofen (Ibuprofen) 600 Mg Tablet, 600 MG PO Q8H PRN for PAIN-MILD Prescribed by: Estela anton on 04/29/221910 Last Action: Discontinued Ibuprofen (Ibuprofen) 800 Mg Tablet, 800 MG PO Q8H PRN for PAIN Prescribed by: ALEKSANDR MCDONALD on 03/26/231709 Last Action: Discontinued Meclizine HCl (Meclizine HCl) 25 Mg Tablet, 25 MG PO Q12H PRN for VERTIGO Prescribed by: CATHI FELICIANO on 01/05/222130 Last Action: Discontinued Methocarbamol (Methocarbamol) 750 Mg Tablet, 1,500 MG PO Q8H PRN for neck pain/muscle spasm Prescribed by: ALEKSANDR MCDONALD on 01/24/22 173 Last Action: Discontinued Metronidazole (Metronidazole) 500 Mg Tablet, 500 MG PO BID Prescribed by: ALEKSANDR MCDONALD on 11/07/212056 Last Action: Discontinued Ondansetron (Ondansetron Odt) 4 Mg Tab.rapdis, 4 MG PO Q6H PRN for NAUSEA/VOMITING Prescribed by: ALEKSANDR MCDONALD on 11/07/212056 Last Action: Discontinued Ondansetron (Ondansetron Odt) 4 Mg Tab.rapdis, 4 MG PO Q6H PRN for NAUSEA/VOMITING Prescribed by: ALEKSANDR MCDONALD on 02/11/22 1410 Last Action: Discontinued Ondansetron (Ondansetron Odt) 4 Mg Tab.rapdis, 4 MG PO TID PRN for NAUSEA-1ST LINE Prescribed by: Estela anton on 04/29/221910 Last Action: Discontinued Ondansetron (Ondansetron Odt) 4 Mg Tab.rapdis, 4 MG SL Q6H PRN for NAUSEA/VOMITING Prescribed by: CATHI FELICIANO on 08/15/22 172 Last Action: Discontinued Ondansetron (Ondansetron Odt) 4 Mg Tab.rapdis, 4 MG PO TID PRN for NAUSEA-1ST LINE Prescribed by: Estela anton on 09/24/22 1830 Last Action: Discontinued Ondansetron (Ondansetron Odt) 4 Mg Tab.rapdis, 4 MG SL Q4H PRN for NAUSEA/VOMITING Prescribed by: HUBERT BRADLEY on 12/06/22 1640 Last Action: Discontinued Pantoprazole Sodium (Pantoprazole Sodium) 40 Mg Tablet.dr, 40 MG PO DAILY Prescribed by: ALEKSANDR MCDONALD on 11/07/212056 Last Action: Discontinued Sulfamethoxazole/Trimethoprim (Bactrim Ds Tablet) 1 Each Tablet, 1 EACH PO BID Prescribed by: LISA DO on 10/31/21 154 Last Action: Discontinued Sulfamethoxazole/Trimethoprim (Bactrim Ds Tablet) 1 Each Tablet, 1 EACH PO BID Prescribed by: ALEKSANDR MCDONALD on 02/11/22 141 Last Action: Discontinued Review of Systems Review of Systems Constitutional: No chills, No fever EENTM: see HPI Respiratory: no symptoms reported Cardiovascular: no symptoms reported Gastrointestinal: no symptoms reported Genitourinary: no symptoms reported Musculoskeletal: no symptoms reported Skin: no symptoms reported Psychiatric/Neurological: Seizure Past Fniwyuo-Bxafgo-Dpyopz Hx Immunizations Up To Date First/Initial COVID19 Vaccinat: non-vaccinated Second COVID19 Vaccination Joel: non-vaccinated Third COVID19 Vaccination Date: non-vaccinated Seasonal Allergies Seasonal Allergies: No Past Medical History Surgery/Hospitalization HX: 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 0oz. 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 No septal hematoma on direct visual exam) Neck: Full Range of Motion, Normal Inspection, Non Tender, Supple Respiratory: Chest Non Tender, Lungs Clear, Normal Breath Sounds, No Accessory Muscle Use, No Respiratory Distress Cardiovascular: Regular Rate, Rhythm, Normal Peripheral Pulses Gastrointestinal: Normal Bowel Sounds, No Pulsatile Mass, Non Tender, Soft Extremity: Normal Capillary Refill, Normal Inspection, No Pedal Edema Neurologic/Psychiatric: Alert, Oriented x3, Other (Slow to respond and answer questions) Skin: Normal Color, Warm/Dry Progress/Results/Core Measures Suspected Sepsis SIRS Temperature: Pulse: Respiratory Rate: Laboratory Tests 05/14/23 00:29: White Blood Count 7.2 Blood Pressure / Mean: Laboratory Tests 05/14/23 00:29: Creatinine 1.07, INR Comment 1.0, Platelet Count 231, Total Bilirubin 0.2 Results/Orders Lab Results Laboratory Tests Test 05/14/23 00:29 Range/Units White Blood Count 7.2 4.3-11.0 10^3/uL Red Blood Count 4.48 3.80-5.11 10^6/uL Hemoglobin 12.7 11.5-16.0 g/dL Hematocrit 39 35-52 % Mean Corpuscular Volume 88 80-99 fL Mean Corpuscular Hemoglobin 28 25-34 pg Mean Corpuscular Hemoglobin Concent 32 32-36 g/dL Red Cell Distribution Width 12.1 10.0-14.5 % Platelet Count 231 130-400 10^3/uL Mean Platelet Volume 10.7 9.0-12.2 fL Immature Granulocyte % (Auto) 0 % Neutrophils (%) (Auto) 50 42-75 % Lymphocytes (%) (Auto) 39 12-44 % Monocytes (%) (Auto) 7 0-12 % Eosinophils (%) (Auto) 4 0-10 % Basophils (%) (Auto) 1 0-10 % Neutrophils # (Auto) 3.6 1.8-7.8 10^3/uL Lymphocytes # (Auto) 2.8 1.0-4.0 10^3/uL Monocytes # (Auto) 0.5 0.0-1.0 10^3/uL Eosinophils # (Auto) 0.3 0.0-0.3 10^3/uL Basophils # (Auto) 0.1 0.0-0.1 10^3/uL Immature Granulocyte # (Auto) 0.0 0.0-0.1 10^3/uL Percent Immature Platelet Fraction 6.4 0.0-7.6 % Prothrombin Time 13.8 12.2-14.7 SEC INR Comment 1.0 0.8-1.4 Activated Partial Thromboplast Time 27 24-35 SEC Sodium Level 141 135-145 MMOL/L Potassium Level 3.9 3.6-5.0 MMOL/L Chloride Level 104 98-107 MMOL/L Carbon Dioxide Level 19 L 21-32 MMOL/L Anion Gap 18 H 5-14 MMOL/L Blood Urea Nitrogen 17 7-18 MG/DL Creatinine 1.07 0.60-1.30 MG/DL Estimat Glomerular Filtration Rate 73 BUN/Creatinine Ratio 16 Glucose Level 114 H 70-105 MG/DL Calcium Level 9.3 8.5-10.1 MG/DL Corrected Calcium 9.2 8.5-10.1 MG/DL Magnesium Level 2.0 1.6-2.4 MG/DL Total Bilirubin 0.2 0.1-1.0 MG/DL Aspartate Amino Transf (AST/SGOT) 18 5-34 U/L Alanine Aminotransferase (ALT/SGPT) 12 0-55 U/L Alkaline Phosphatase 59 40-136 U/L Total Protein 6.8 6.4-8.2 GM/DL Albumin 4.1 3.2-4.5 GM/DL Serum Test, Qualitative NEGATIVE NEGATIVE Serum Alcohol < 10 <10 MG/DL My Orders Orders - ALEKSANDR MCDONALD MD Cbc With Automated Diff (05/14/23:31) Magnesium (05/14/23:31) Comprehensive Metabolic Panel (05/14/23:31) Protime With Inr (05/14/23:) Partial Thromboplastin Time (05/14/23:) O2 (05/14/23:31) Ed Iv/Invasive Line Start (05/14/23:) Ua Culture If Indicated (05/14/23:) Drug Screen Stat (Urine) (05/14/23:31) Alcohol (05/14/23:) Ct Head/Maxillofacial Wo (05/14/23 00:31) Hcg,Qualitative Serum (05/14/23 00:31) Levetiracetam 1000 Mg/Ns 100ml (Keppra I (05/14/23 00:33) Ns Iv 1000 Ml (Ns Iv 1000 Ml) (05/14/23 00:33) Vital Signs/I&O 05/14/23 05/14/23 00:24 00:28 Temp 36.6 Pulse 102 Resp 20 B/P (MAP) 130/54 (79) Pulse Ox 95 85 O2 Delivery Nasal Cannula Nasal Cannula O2 Flow Rate 4.00 4.00 Capillary Refill : Progress Note #1: Progress Note Differential diagnosis includes noncompliance, UTI, dehydration, electrolyte imbalance, intracranial hemorrhage. Obtain basic labs of complete blood count, comprehensive metabolic profile, magnesium, coagulation factors, urinalysis, qualitative hCG. Administer Keppra 1 g IV along with normal saline 1 L IV fluid bolus for hydration. Seizure precautions. CT scan of the head and face to look for intracranial hemorrhage, mass, facial fractures. Progress Note #2: Time: :24 Progress Note On my personal interpretation and review of her CT head and face she does not have a facial fracture or intracranial hemorrhage or mass. Chronic changes from prior stroke as a child. Overall appears stable and similar to imaging from January 2022. CBC without acute significant abnormality. Comprehensive metabolic profile also without acute electrolyte abnormality. Normal Coagulation factors. Trying to have patint urinate to obtain specimen for testing. She is somnolent from Lorazepam by EMS and being post-ictal from seizure. At times her oxygen saturation would dip under 90% but then she would take some deep breaths and it comes back up. Progress Note #3: Time: : Progress Note Radiology report from stat rad showed no acute facial fracture and no acute intracranial process. Patient was unable to provide urine specimen so will have her rest and try again shortly. Her labs otherwise remained stable and no acute changes on her CT head or face. She has received a gram of Keppra IV and will prescribe continue Keppra by mouth. Have her follow-up with [facility]. Progress Note #4: Progress Note Patient was never willing to provide a urine specimen but she did not have UTI symptoms. Will discharge to home and sent prescription for Keppra to pharmacy. Encourage her to follow up with clinic and continue on seizure medicine. Diagnostic Imaging Diagonstic Imaging: CT Plain Films/CT/US/NM/MRI: facial bones, head Comments CTA of head and face without IV contrast Impression: No acute facial fracture No acute hemorrhage, hydrocephalus or mass effect. Read by radiologist Dr. Ghislaine Faith MD at 0123 and faxed at [phone] Reviewed: Reviewed [place] Study, Reviewed by Me Departure Impression Primary Impression: Seizure disorder Additional Impressions: Epistaxis due to trauma Contusion of nose, initial encounter Noncompliance with medication regimen Disposition: HOME, SELF-CARE Condition: Stable Departure-Patient Inst. Decision time for Depature: 03:13 Referrals: SHERITA HAWLEY APRN (PCP) Primary Care Physician [facility] (Family) Primary Care Physician Patient Instructions: Nosebleeds ED, Seizures, Adult ED, Minor Contusion ED, Why Taking Your Medicine or Drug as Ordered Is Important Add. Discharge Instructions: Take your medications as prescribed. Follow-up with the [facility] clinic about your seizures and your medications. Try to stay on a stable sleep schedule. Stay well-hydrated and drink plenty of fluids. All discharge instructions reviewed with patient and/or family. Voiced understanding. Scripts Levetiracetam (Keppra) 500 Mg Tablet 500 MG PO BID for Seizure Activity for 30 Days, #60 TAB 0 Refills Prov: ALEKSANDR MCDONALD MD 05/14/23 Work/School Note: Work Release Form Date Seen in the Emergency Department: May 14, 2023 Return to Work: May 17, 2023 Restrictions: No Restrictions ALEKSANDR MCDONALD MD May 14, 2023 00:39
[2023-05-14 00:42] LABS: BASOPHILS # (AUTO) 0.1 10^3/uL (0.0-0.1); BASOPHILS % (AUTO) 1 % (0-10); EOSINOPHILS # (AUTO) 0.3 10^3/uL (0.0-0.3); EOSINOPHILS % (AUTO) 4 % (0-10); HEMATOCRIT 39 % (35-52); HEMOGLOBIN 12.7 g/dL (11.5-16.0); LYMPHOCYTES # (AUTO) 2.8 10^3/uL (1.0-4.0); LYMPHOCYTES % (AUTO) 39 % (12-44); MEAN CORPUSCULAR HEMOGLOBIN 28 pg (25-34); MEAN CORPUSCULAR HGB CONC 32 g/dL (32-36); MEAN CORPUSCULAR VOLUME 88 fL (80-99); MEAN PLATELET VOLUME 10.7 fL (9.0-12.2); MONOCYTES # (AUTO) 0.5 10^3/uL (0.0-1.0); MONOCYTES % (AUTO) 7 % (0-12); NEUTROPHILS # (AUTO) 3.6 10^3/uL (1.8-7.8); NEUTROPHILS % (AUTO) 50 % (42-75); PLATELET COUNT 231 10^3/uL (130-400); WHITE BLOOD COUNT 7.2 10^3/uL (4.3-11.0)
[2023-05-14 01:11] LABS: ALKALINE PHOSPHATASE 59 U/L (40-136); BILIRUBIN,TOTAL 0.2 MG/DL (0.1-1.0); BUN/CREATININE RATIO 16; CALCIUM 9.3 MG/DL (8.5-10.1); CARBON DIOXIDE 19 MMOL/L (21-32); CHLORIDE 104 MMOL/L (98-107); CREATININE SERUM 1.07 MG/DL (0.60-1.30); GFR ESTIMATED 73; GLUCOSE 114 MG/DL (70-105); POTASSIUM 3.9 MMOL/L (3.6-5.0); SODIUM 141 MMOL/L (135-145)
[2023-05-14 01:12] LABS: ALANINE AMINOTRANSFERASE 12 U/L (0-55); ALBUMIN 4.1 GM/DL (3.2-4.5); TOTAL PROTEIN 6.8 GM/DL (6.4-8.2)
[2023-05-14 01:14] LABS: PROTHROMBIN TIME PATIENT 13.8 SEC (12.2-14.7)
[2023-05-14] MEDS ORDERED: LEVE500T99 PO (02:02)
[2023-05-14 03:30] VITALS: BP 108/64
--- NOTE | 2023-05-14 06:58 | Diagnostic Imaging Report ---
PROCEDURE: CT head and maxillofacial without contrast. TECHNIQUE: Multiple contiguous axial images were obtained through the head and facial bones without the use of intravenous contrast. Auto Exposure Controls were utilized during the CT exam to meet ALARA standards for radiation dose reduction. INDICATION: Seizure and fall with head and facial pain and injury. FINDINGS: COMPARISON: Head CT from 01/24/2022. FINDINGS: CT CHEST: Ex vacuo dilatation of the right lateral ventricle appears to be similar to prior head CT. No sulcal effacement or midline shift is identified. No acute intra-axial or extra-axial hemorrhage is detected. The cisterns are patent. The visualized paranasal sinuses are clear. IMPRESSION: Stable chronic changes when compared with the exam from 01/24/2022. No acute intracranial process is detected. CT MAXILLOFACIAL: The mandible appears to be intact. The zygomatic arches are intact. The maxillary sinus valenzuela, nasal bones, and orbital valenzuela appear to be intact. There is some minimal mucosal thickening of the right maxillary sinus. The nasal septum is deviated to the right. IMPRESSION: No facial bone fracture is identified. Dictated by: Dictated on workstation # [id number]
== END 2023-05-14 03:30 | disposition home or self-care (01) ==
LOC: EDUNIT# 00:22 → ER FS 00:24
DX: S00.33XA Contusion of nose, initial encounter (principal); R04.0 Epistaxis; G40.909 Epilepsy, unspecified, not intractable, without status epilepticus; Z91.148 Patient's other noncompliance with medication regimen for other reason; Z79.899 Other long term (current) drug therapy; Z28.310 Unvaccinated for COVID-19; W08.XXXA Fall from other furniture, initial encounter
CPT/HCPCS: 36415; 70450; 70486; 80053; 83735; 84703; 85025; 85610; 85730; 99284; G0480; 80320